=== PATIENT | male | born 1940 | race Caucasian/White ===

== ENCOUNTER 2017-09-24 08:05 | Day surgery (SDC) | payer MEDICARE, SELFPAY ==
[2017-09-23 14:43] VITALS: BMI 27.3
[2017-09-24] VITALS (9 sets, daily range): BP systolic 149–173; BP diastolic 69–82; PULSE 69–78; RESP 18–22; TEMP 36.8–37.3; O2SAT 92–98
== END 2017-09-24 11:10 | disposition home or self-care (01) ==
LOC: OR 08:13
PROVIDERS: Family Provider Family Medicine; PCP Family Medicine; Visit Provider Ophthalmology
DX: H21.562 Pupillary abnormality, left eye (principal); H26.9 Unspecified cataract
CPT/HCPCS: 66982; V2632

== ENCOUNTER 2018-03-04 12:48 | Observation (INO) ==
[2018-03-04 13:08] LABS: Basophils # 0.1 K/mm3 (0-0.2); Basophils % 0.8 % (0.1-2.0); Eosinophils # 0.3 K/mm3 (0.0-0.4); Eosinophils % 3.6 % (0.1-12.0); Hematocrit 37.6 % (42.0-52.0); Hemoglobin 10.7 g/dL (14.1-18.0); Lymphocytes # 1.5 K/mm3 (0.7-4.5); Lymphocytes % 17.1 K/mm3 (10-50); Mean Corpuscular HGB Conc 28.5 g/dL (31.8-35.4); Mean Corpuscular Hemoglobin 26.7 pg (27.0-31.2); Mean Corpuscular Volume 93.4 fl (80-94); Mean Platelet Volume 7.3 fl (7.4-10.4); Monocytes # 0.8 K/mm3 (0.1-1.0); Monocytes % 8.7 % (1.7-9.3); Neutrophils # 6.2 K/mm3 (1.8-7.8); Neutrophils % 69.8 % (37.0-80.0); Platelet Count 294 K/mm3 (142-424); Red Blood Count 4.03 M/mm3 (4.60-6.20); Red Cell Distribution Width 14.8 % (11.5-17.5); White Blood Count 8.9 K/mm3 (4.8-10.8)
[2018-03-04 13:09] LABS: ABG HCO3 32.1 mmhg (22.0-26.0); ABG Oxygen Saturation 99 % (90-100); ABG PH 7.26 mmol/L (7.35-7.45); ABG TCO2 34.3 mmhg (23-27)
[2018-03-04 13:10] LABS: Allen's Test Acceptable; Oxygen NRB %
--- NOTE | 2018-03-04 13:10 | Emergency Department Note ---
ED Disposition Clinical Impression: Hypoxemia Disposition: Admitted as Observation Condition on Discharge: Good - Critical Care Critical Care Time: No Attestation: On 03/04/18, the high probability of a clinically significant, sudden or life threatening deterioration of the following system(s) required my full and direct attention, intervention and personal management. The time I documented below is in addition to time spent performing reported procedures but includes the following listed in this critical care notation. Medical Decision Making - Medical Records Medical records reviewed: Yes: I reviewed the patient's medical records. - Jay Inquiry Pt receiving controlled substance: No Jay was queried for this patient: No Vital Signs: 03/04/18 12:48 03/04/18 12:50 03/04/18 13:15 Temperature 98.9 F Temperature Source Temporal Artery Scan Pulse Rate Pulse Rate [Right Brachial] 83 Respiratory Rate 22 Blood Pressure Blood Pressure [Right Arm] 160/80 Blood Pressure Mean [Right Arm] 106 Blood Pressure Source Blood Pressure Source [Right Arm] Automatic Cuff Blood Pressure Position Blood Pressure Position [Right Arm] Sitting 02 Sat by Pulse Oximetry 66 L 99 97 Oxygen Delivery Method Room Air Non-Rebreather Nasal Cannula Oxygen Flow Rate (LPM) 15 3 03/04/18 13:18 03/04/18 14:30 03/04/18 16:27 Temperature 98.9 F Temperature Source Oral Pulse Rate 80 Pulse Rate [Right Brachial] 70 80 Respiratory Rate 22 20 20 Blood Pressure 177/77 Blood Pressure [Right Arm] 155/60 151/70 Blood Pressure Mean [Right Arm] 91 97 Blood Pressure Source Automatic Cuff Blood Pressure Source [Right Arm] Automatic Cuff Automatic Cuff Blood Pressure Position Sitting Blood Pressure Position [Right Arm] Sitting Sitting 02 Sat by Pulse Oximetry 94 L 95 Oxygen Delivery Method Nasal Cannula Nasal Cannula Nasal Cannula Oxygen Flow Rate (LPM) 3 3 - Lab Data Lab results reviewed: Yes: I reviewed the patient's lab results. Lab Results 03/04/18 12:45: POC Glucose 115 H 03/04/18 12:52: Specimen Source Left radial, O2 % Nrb, ABG pH 7.26 L, ABG pCO2 73.4 H, ABG pO2 212.0 H, ABG HCO3 32.1 H, ABG Total CO2 34.3 H, ABG O2 Saturation 99, ABG Base Excess 5.0 H, Gregory Test Acceptable 03/04/18 12:55: WBC 8.9, RBC 4.03 L, Hgb 10.7 L, Hct 37.6 L, MCV 93.4, MCH 26.7 L, MCHC 28.5 L, RDW 14.8, Plt Count 294, MPV 7.3 L, Neut % (Auto) 69.8, Lymph % (Auto) 17.1, [place] % (Auto) 8.7, Eos % (Auto) 3.6, Baso % (Auto) 0.8, Neut # ( Auto) 6.2, Lymph # (Auto) 1.5, [place] # (Auto) 0.8, Eos # (Auto) 0.3, Baso # (Auto ) 0.1 03/04/18 12:55: Sodium 141, Potassium 5.3 H, Chloride 103, Carbon Dioxide 33 H, Anion Gap 10.3, BUN 32 H, Creatinine 1.64 H, Estimated Creat Clear 54, Estimated GFR 41 L, Est GFR ( Amer) 49 L, Glucose 125 H, Calcium 8.7, Total Bilirubin 0.3, AST 17, ALT 22, Alkaline Phosphatase 125 H, Total Creatine Kinase 57, CK-MB (CK-2) 1.9, CK-MB (CK-2) Rel Index 3.3, Troponin I < 0.02, Total Protein 7.3, Albumin 3.0 L, Globulin 4.3 H, Albumin/Globulin Ratio 0.7 L 03/04/18 12:55: Lactic Acid 0.9 Result diagrams: 03/06/18 06:15 03/06/18 06:15 Orders (Tests/Meds): ED MEDICATIONS Discontinued Medications Generic Name Dose Route Start Last Admin Trade Name Cornelius PRN Reason Stop Dose Admin Albuterol/Ipratropium 3 ml 03/04/18 18:00 03/06/18 05:50 Duoneb 3ml Neb IH 04/03/18 17:59 3 ml Q6RT ESME Administration Amiodarone HCl 200 mg 03/05/18 09:00 03/05/18 09:04 Cordarone 200mg Tablet PO 04/04/18 08:59 200 mg DAILY ESME Administration Amlodipine Besylate 10 mg 03/05/18 09:00 03/06/18 08:28 Norvasc 10mg Tablet PO 04/04/18 08:59 10 mg DAILY ESME Administration Calcium Chloride 1 gm 03/04/18 13:50 03/04/18 14:12 Calcium Chloride 1gm/10ml Syringe IVP 03/04/18 13:51 1 gm ONCE ONE Administration Dextrose 50 ml 03/04/18 13:51 03/04/18 14:10 Dextrose 50% 50ml Syringe IVP 03/04/18 13:52 50 ml ONCE ONE Administration Ferrous Sulfate 325 mg 03/05/18 09:00 03/06/18 08:28 Ferrous Sulfate 325mg Tablet PO 04/04/18 08:59 325 mg DAILY ESME Administration Furosemide 40 mg 03/04/18 21:00 03/04/18 20:33 Lasix 40mg Tablet PO 04/03/18 20:59 40 mg BID ESME Administration Furosemide 40 mg 03/05/18 07:44 03/05/18 09:06 Lasix 40mg Tablet PO 04/03/18 20:59 40 mg BIDL ESME Administration Furosemide 40 mg 03/05/18 16:00 03/06/18 08:29 Lasix 40mg Tablet PO 04/04/18 15:59 40 mg BIDL ESME Administration Sodium Chloride 1,000 mls @ 100 mls/hr 03/04/18 16:49 03/06/18 01:06 Sod Chlor 0.9% 1000ml Bag IV 04/03/18 16:48 100 mls/hr .Q10H ESME Administration Levofloxacin/Dextrose 750 mg in 150 mls @ 100 mls/hr 03/04/18 17:30 03/04/18 17:59 Levofloxacin 750mg/150ml Premix IV 03/18/18 17:29 100 mls/hr Q24H ESME Administration Protocol Levofloxacin/Dextrose 750 mg in 150 mls @ 100 mls/hr 03/05/18 17:00 03/05/18 18:08 Levofloxacin 750mg/150ml Premix IV 03/19/18 16:59 100 mls/hr Q24H ESME Administration Protocol Insulin Human Regular 8 unit 03/04/18 13:51 03/04/18 14:10 Humulin R Insulin 100 Units/Ml 10ml Vial IVP 03/04/18 13:52 8 unit ONCE ONE Administration Iopamidol 70 ml 03/05/18 09:35 03/05/18 09:36 [id number]; 75ml Vial IV 03/05/18 09:36 70 ml ONCE ONE Administration Lisinopril 40 mg 03/05/18 09:00 03/05/18 09:07 Zestril 20mg Tab PO 04/04/18 08:59 40 mg DAILY ESME Administration Methylprednisolone Sodium Succinate 80 mg 03/04/18 17:30 03/05/18 05:31 Solu-Medrol 125mg/2ml Vial IV 04/03/18 17:29 80 mg Q6H ESME Administration Methylprednisolone Sodium Succinate 80 mg 03/05/18 13:00 03/06/18 06:43 Solu-Medrol 125mg/2ml Vial IV 04/04/18 12:59 80 mg Q6H ESME Administration Metoprolol Succinate 50 mg 03/05/18 09:00 03/05/18 09:40 Toprol Xl 50mg Tablet PO 04/04/18 08:59 50 mg DAILY ESME Administration Metoprolol Tartrate 50 mg 03/06/18 09:00 03/06/18 08:29 Lopressor 50mg Tablet PO 04/05/18 08:59 50 mg DAILY ESME Administration Mupirocin 1 gm 03/04/18 21:00 03/06/18 08:30 Bactroban 2% Ointment 22gm Tube TP 04/03/18 20:59 1 applicatio TID ESME Administration Non-Formulary Medication 40 mg 03/04/18 16:49 03/04/18 18:00 Lisinopril [Lisinopril 40mg Tablet] PO 04/03/18 16:48 Not Given DAILY EMSE Patient's Own 0.5 each 03/06/18 09:00 03/06/18 08:32 Medication * PO 04/05/18 08:59 0.5 each Amiodarone 200mg* DAILY ESME Administration Patient's Own 1 each 03/06/18 09:00 03/06/18 08:33 Medication *Xarelto PO 04/05/18 08:59 1 each 20mg* DAILY ESME Administration Patient's Own 1 each 03/06/18 09:00 03/06/18 08:32 Medication * PO 04/05/18 08:59 1 each Lisinopril 40mg* DAILY ESME Administration Pantoprazole Sodium 40 mg 03/05/18 21:00 03/05/18 21:23 Protonix 40mg Tablet PO 04/04/18 20:59 40 mg HS ESME Administration Rivaroxaban 20 mg 03/05/18 09:00 03/05/18 09:09 Xarelto 10mg Tablet PO 04/04/18 08:59 20 mg DAILY ESME Administration Sodium Chloride 10 ml 03/04/18 16:49 Saline Flush 10ml Syringe IV 04/03/18 16:48 NEEDED PRN Maintain IV Site Sodium Chloride 40 ml 03/05/18 09:35 03/05/18 09:36 Rad-Ns 50ml Vial IV 03/05/18 09:36 40 ml ONCE ONE Administration Sodium Chloride 10 ml 03/05/18 09:35 03/05/18 09:36 Rad-Saline Flush 10ml Syringe IV 03/05/18 09:36 10 ml ONCE ONE Administration Sodium Chloride 3 ml 03/05/18 19:50 Sodium Chloride 3% 15ml Neb IH 04/04/18 19:49 ONCE PRN INDUCE SPUTUM COLLECTION Sodium Polystyrene Sulfonate 15 gm 03/04/18 13:51 03/04/18 14:10 Kayexalate 15gm/60ml Bottle PO 03/04/18 13:52 15 gm ONCE ONE Administration - Radiology Data #1 Image(s): Chest Image Reviewed: Yes I reviewed the patient's radiology results, Yes I have reviewed radiologist's interpretation Preliminary Findings: Abnormal (possible infiltrate vs atelectasis at base per radiology (right)) - CT Data CT Scan: Head Time Received: 15:28 (poorly imaged abnormality R orbit; neg acute) ED CT Reviewed: Yes: I have reviewed the patient's CT results, I have viewed the radiologist's interpretation - ECG Data Tracing #1 ECG initial impression date: 03/04/18 ECG initial impression time: 12:55 (peaked T waves with K level pending; normal QTc but first degree AVB noted; most recent EKG was in 2013; hx Afib) Normal Sinus Rhythm: Yes Arrhythmias present: other Conduction abnormalities present: 1st degree AV block - Physician Consults Physician Consulted: Dr. Gould PCP Reason -: Admission - Reevaluation(s) Time: 13:14 (placed on NC due to abnormal ABG: retaining) Medical Decision Narrative: 1353: K 5.3 with peaked T waves noted on EKG; appropriate meds ordered. Patient alert, no SOB; CXR and CT pending Resp/SOB HPI - General Chief Complaint: Shortness of Breath/Dyspnea Stated Complaint: SOA, dropping things Time Seen by Provider: 03/04/18 13:07 Mode of Arrival: Wheelchair Source of Information: Patient, Spouse Limitations: No Limitations Description of Symptoms (Recalled from ER Triage Doc. by RN): Per pt report pt c /o SOA x1 month. Pt reports has been weak, states his hands have become shaky and has recently been dropping things frequently. - History of Present Illness Progressively SOB, chronic edema, out of his diuretic and hasn't refilled it. Arrives hypoxic, states SOB for several months, worse today; has chronic anemia, pt of Dr. Gould PCP and Dr. Carreno, cardiology, for Afib. No new changes in medications otherwise; takes Amiodarone. Is on Xarelto as well. No focal neurological sx but reports "shaky" since awakening this AM w/o headache. Diffusely weak, states 'dropping things' this AM. No bianca chest pain. MD Complaint: shortness of breath Onset (ago): month(s) Severity: moderate Consistency/Duration: constant Relieving factors: oxygen Exacerbating factors: exertion, movement Associated symptoms: denies other symptoms Treatment prior to arrival: none - Related Data Home Medications Medication Instructions Recorded Confirmed Amlodipine Besylate [Amlodipine 10 mg PO DAILY 09/23/17 03/04/18 10mg Tab] Lisinopril [Lisinopril 40mg Tablet] 40 mg PO DAILY 09/23/17 03/04/18 Pantoprazole Sodium [Pantoprazole 40 mg PO DAILY 09/23/17 03/04/18 20mg Tab] Rivaroxaban [Xarelto 10mg tablet] 20 mg PO DAILY 09/23/17 03/04/18 Ferrous Sulfate [Iron] 325 mg PO DAILY 03/04/18 03/04/18 Furosemide [Furosemide 40MG tAB] 40 mg PO BID 03/04/18 03/04/18 Amiodarone HCl [Amiodarone 100mg 100 mg PO DAILY 03/05/18 03/05/18 Tab] Metoprolol Tartrate 50 mg PO DAILY 03/05/18 03/05/18 Previous Rx's Medication Instructions Recorded levoFLOXacin [Levaquin 750mg 750 mg PO DAILY #5 tab 03/06/18 tablet] predniSONE [Prednisone 20mg 20 mg PO BID #10 tab 03/06/18 Tab] Allergies Allergy/AdvReac Type Severity Reaction Status Date / Time codeine [CODEINE] Allergy Unknown Verified 09/24/17 08:47 - Well's Criteria PE Score Clinical signs/symptoms of DVT: No PE is #1 diagnosis or equally likely: No Heart rate is > 100: No Immobile at least 3 days, or surgery in past 4 wks: No Previously, obj. diagnosed PE or DVT: No Hemoptysis: No Malignancy w/Rx within 6mo, or palliative: No PE Score: 0 [facility] History I have reviewed the patient's past medical history: Yes Medical History: Reports:: Hypertension, Palpitations Denies:: Diabetes Mellitus Type 1, Diabetes Mellitus Type 2, Internal Pacemaker, Lung Disease, Seizures Other Surgeries: No: Pacemaker - Social History Smoking Status: Former smoker Alcohol Intake: never - Psychiatric History Expresses thoughts of harming self/others: None Suicide Plan Description: No Plan ROS Obtained: Yes All systems reviewed & no additional complaints Physical Exam - General General appearance: alert, in no apparent distress - Head Head exam: atraumatic, normocephalic, normal inspection - Eye Eye exam: Present: normal appearance, PERRL, EOMI - ENT ENT exam: Present: normal exam, normal oropharynx, mucous membranes moist, TM's normal bilaterally, normal external ear exam - Neck Neck exam: Present: normal inspection, full ROM, trachea midline. Absent: meningismus, lymphadenopathy - Chest Chest inspection: Present: normal inspection, symmetric chest wall rise. Absent : tenderness - Respiratory Respiratory exam: Present: normal lung sounds bilaterally. Absent: respiratory distress, accessory muscle use (hypoxic) - Cardiovascular Cardiovascular exam: Present: regular rate, normal rhythm. Absent: JVD - Abdominal Exam Abdominal exam: Present: soft, normal bowel sounds. Absent: distention, tenderness, guarding - Extremities Exam Extremities exam: Present: normal inspection, full ROM, normal capillary refill. Absent: calf tenderness - Back Exam Back exam: Present: normal inspection. Absent: tenderness - Neurological Exam Neurological exam: Present: alert, oriented X3 - Psychiatric Psychiatric exam: Present: normal affect, normal mood - Skin Skin exam: Present: warm, dry, intact, normal color - Lymphatic Lymphatic Findings: no adenopathy
[2018-03-04 13:11] LABS: ABG PCO2 73.4 mmhg (35.0-45.0)
[2018-03-04 13:42] LABS: Alanine Aminotransferase 22 U/L (12-78); Albumin/Globulin Ratio 0.7 (1.1-1.8); Alkaline Phosphatase 125 U/L (46-116); Anion Gap 10.3 mEq/L (5-15); Aspartate Amino Transferase 17 U/L (15-37); Bilirubin,Total 0.3 mg/dL (0.2-1.0); Blood Urea Nitrogen 32 mg/dL (7-18); Calcium 8.7 mg/dL (8.5-10.1); Carbon Dioxide 33 mmol/L (21.0-32.0); Chloride 103 mmol/L (98-107); Creatine Kinase 57 U/L (39-308); Globulin 4.3 gm/dl (1.3-3.2); Glucose 125 mg/dL (74-106); Potassium 5.3 mmoL/L (3.5-5.1); Sodium 141 mmol/L (136-145); Total Protein,Serum 7.3 gm/dL (6.4-8.2)
--- NOTE | 2018-03-04 16:27 | Pharmacy Consult Notes ---
[facility] Pharmacy VTE Monitoring - Patient Demographics Admission date: 03/04/18 Report Date: 03/04/18 Time: 16:27 Allergies/Adverse Reactions: Patient Allergies codeine [CODEINE] Allergy (Unknown, Verified 09/24/17 08:47) Height: 1.93 m Weight: 104.326 kg - VTE Risk Labs: VTE Related Lab Results Hgb 10.7 g/dL (14.1-18.0) L 03/04/18 12:55 Hct 37.6 % (42.0-52.0) L 03/04/18 12:55 Plt Count 294 K/mm3 (142-424) 03/04/18 12:55 BUN 32 mg/dL (7-18) H 03/04/18 12:55 Creatinine 1.64 mg/dL (0.70-1.30) H 03/04/18 12:55 Estimated Creat Clear 54 mL/min (0-300) 03/04/18 12:55 Clinical Trial Participant: No - Prophylaxis VTE Prophylaxis Ordered?: Yes Types of VTE Prophylaxis: TEDS Knee High
--- NOTE | 2018-03-04 19:36 | Cardiology Report ---
PROCEDURE: 2-D M-mode and color Doppler study INDICATIONS FOR THE TEST: Chest pain COPD Heart Murmur Tobacco Smokingex Palpitations Fatigue+ Syncope Edema+ Hypertension+Diabetes Mellitus Rheumatic Fever SOB+FLORES+Obesity+Hyperlipidemia Family History HD+ Additional History hypoxia PATIENT INFORMATION HEIGHT: 76 WEIGHT: 235 GENDER: Male B/P:160/80 2-D/M-MODE INTERPRETATION: 2-D MEASUREMENTS OBSERVED VALUES IN CMS Right Ventricular Dimension (RVDd) 2.6 Interventricular Septum (Thickness)(IVsd) 1.5 Left Ventricular Internal Dimensions(LVIDd) 5.3 Left Ventricular Posterior Wall (Thickness)(LVPWd) 1.4 Aortic Root 2.7 Aortic Cusp Separation 1.5 Left Atrial Dimensions (LAD) 4.9 2D 1. Left atrium is mildly enlarged, left ventricle is normal size, mild concentric left ventricular hypertrophy, visually estimated ejection fraction 55-60% with no obvious regional wall motion abnormality. 2. The right atrium ventricular mildly enlarged with normal contractility. 3. The aortic valve is thickened and calcified with restriction the leaflet mobility. 4. The mitral and tricuspid valve leaflets are minimally thickened and calcified. 5. The pulmonic valve is poorly visualized. 6. No significant pericardial effusion noted. DOPPLER INTERROGATION: 1. The maximum aortic out flow velocity recorded study 3.1 m/s, resulting in a mean gradient across valve of 21 mmHg represents mild aortic stenosis, there is no aortic insufficiency. 2. The mitral inflow velocity within normal range, there is no mitral stenosis, there is mild mitral regurgitation, grade 1 diastolic dysfunction seen with tissue Doppler evidence of raised left atrial pressure. 3. There is mild tricuspid regurgitation noted, calculated right ventricular systolic pressure is 59 mmHg consistent with moderate pulmonary hypertension. CONCLUSION: 1. Biatrial enlargement, normal left ventricular size, mild concentric left ventricular hypertrophy, visually estimated ejection fraction 55-60% with no obvious regional wall motion abnormality, grade 1 diastolic dysfunction seen with tissue Doppler evidence of raised left atrial pressure. 2. Mildly enlarged right ventricle with normal contractility. 3. Thickened and calcified aortic valve with mean gradient across valve of 21 mmHg consistent with mild aortic stenosis, there is no aortic insufficiency. 4. Mild mitral and tricuspid regurgitation, calculated right ventricular systolic pressure is 59 mmHg consistent with moderate pulmonary hypertension. 5. No significant pericardial effusion noted.
--- NOTE | 2018-03-04 19:56 | History & Physical Report ---
*Admission Date: 03/04/18 *Chief complaint: weakness, shortness of breath, lethargy *History of present illness: 77 year old male who has been undergoing outpatient work-up for daytime somnolence and fatigue presented to the ED for evaluation of ongoing symptoms. Patient states "I can't hold onto things anymore. I keep dropping everything." He reports "shaking" sensation of upper extremities. Family reports increased lethargy, weakness and shortness of breath the last few days. No shortness of breath. Denies fevers. No ENT symptoms. No nausea, vomiting or diarrhea. He does have a huge right inguinal hernia. In the ED, he was found to be hypoxic with RLL infiltrate. Patient was admitted for further IV antibiotics and further evaluation. [facility] History I have reviewed the patient's past medical history: Yes Medical History: Reports:: Atrial Fibrillation, Congestive Heart Failure, Hypertension, Palpitations Denies:: Cancer, Diabetes Mellitus Type 1, Diabetes Mellitus Type 2, Internal Pacemaker, Lung Disease, MRSA, Seizures Other Medical History: Reports: Anemia Laterality Cases: Left: Total Hip Replacement Other Surgeries: Yes: Appendectomy. No: Pacemaker Amputation: No Fractures: Yes - *Social History Educational Level: Attended High School Smoking Status: Former smoker Alcohol Intake: never Occupational Status: employed Housing: house Household Members: spouse - Psychiatric History Expresses thoughts of harming self/others: None Suicide Plan Description: No Plan *Family Hx:: Unable to obtain Review of Systems - Review of Systems Review of systems:: pertinent systems reviewed and negative unless documented below - Constitutional Reports weakness - *Cardiovascular Reports leg swelling - *Respiratory Reports shortness of breath - *Neurologic Reports tremor(s) Meds Home Medications Medication Instructions Recorded Confirmed Type Amiodarone HCl [Amiodarone 200mg 200 mg PO DAILY 09/23/17 03/04/18 History Tab] Amlodipine Besylate [Amlodipine 10 mg PO DAILY 09/23/17 03/04/18 History 10mg Tab] Lisinopril [Lisinopril 40mg Tablet] 40 mg PO DAILY 09/23/17 03/04/18 History Metoprolol Succinate 50 mg PO DAILY 09/23/17 03/04/18 History Pantoprazole Sodium [Pantoprazole 40 mg PO DAILY 09/23/17 03/04/18 History 20mg Tab] Rivaroxaban [Xarelto 10mg tablet] 20 mg PO DAILY 09/23/17 03/04/18 History Ferrous Sulfate [Iron] 325 mg PO DAILY 03/04/18 03/04/18 History Furosemide [Furosemide 40MG tAB] 40 mg PO BID 03/04/18 03/04/18 History Allergies Allergy/AdvReac Type Severity Reaction Status Date / Time codeine [CODEINE] Allergy Unknown Verified 09/24/17 08:47 Exam Vital signs and Labs for Last 24 Hours: Temp Pulse Resp BP Pulse Ox 98.3 F 88 22 168/85 93 L 03/04/18 16:39 03/04/18 18:32 03/04/18 16:39 03/04/18 16:39 03/04/18 18:32 Laboratory Results - last 24 hr 03/04/18 12:52: Specimen Source Left radial, O2 % Nrb, ABG pH 7.26 L, ABG pCO2 73.4 H, ABG pO2 212.0 H, ABG HCO3 32.1 H, ABG Total CO2 34.3 H, ABG O2 Saturation 99, ABG Base Excess 5.0 H, Gregory Test Acceptable 03/04/18 12:55: WBC 8.9, RBC 4.03 L, Hgb 10.7 L, Hct 37.6 L, MCV 93.4, MCH 26.7 L, MCHC 28.5 L, RDW 14.8, Plt Count 294, MPV 7.3 L, Neut % (Auto) 69.8, Lymph % (Auto) 17.1, [place] % (Auto) 8.7, Eos % (Auto) 3.6, Baso % (Auto) 0.8, Neut # ( Auto) 6.2, Lymph # (Auto) 1.5, [place] # (Auto) 0.8, Eos # (Auto) 0.3, Baso # (Auto ) 0.1 03/04/18 12:55: Sodium 141, Potassium 5.3 H, Chloride 103, Carbon Dioxide 33 H, Anion Gap 10.3, BUN 32 H, Creatinine 1.64 H, Estimated Creat Clear 54, Estimated GFR 41 L, Est GFR ( Amer) 49 L, Glucose 125 H, Calcium 8.7, Total Bilirubin 0.3, AST 17, ALT 22, Alkaline Phosphatase 125 H, Total Creatine Kinase 57, CK-MB (CK-2) 1.9, CK-MB (CK-2) Rel Index 3.3, Troponin I < 0.02, Total Protein 7.3, Albumin 3.0 L, Globulin 4.3 H, Albumin/Globulin Ratio 0.7 L 03/04/18 12:55: Lactic Acid 0.9 03/04/18 17:30: Lactic Acid 0.7 I & O for Last 24 hours: Intake & Output 03/02/18 03/03/18 03/04/18 03/05/18 11:59 11:59 11:59 11:59 Intake Total 240 / 240 Balance 240 / 240 Weight 235 lb 9 oz Narrative: ALert and oriented x3 with some confusion. Rate and rhythm regular. + murmur. 2+ BLE edema with chronic erythematous changes. Lung sounds with scattered rhonchi on right, diminished bilateral bases. Abdomen soft and nontender. Normosctive bowel sounds. Large right sided inguinal hernia approx the size of a football. Non-tender H&P: Result - Labs Labs: Short CBC 03/04/18 Range/Units 12:55 WBC 8.9 (4.8-10.8) K/mm3 Hgb 10.7 L (14.1-18.0) g/dL Hct 37.6 L (42.0-52.0) % Plt Count 294 (142-424) K/mm3 BMP 03/04/18 12:55 Sodium 141 Potassium 5.3 H Chloride 103 Carbon Dioxide 33 H BUN 32 H Creatinine 1.64 H Glucose 125 H Calcium 8.7 Cardiac Enzymes 03/04/18 Range/Units 12:55 Total Creatine Kinase 57 (39-308) U/L CK-MB (CK-2) 1.9 (0.0-3.6) ng/ml Troponin I < 0.02 (0.00-0.06) ng/ml Liver Function 03/04/18 Range/Units 12:55 Total Bilirubin 0.3 (0.2-1.0) mg/dL AST 17 (15-37) U/L ALT 22 (12-78) U/L Alkaline Phosphatase 125 H (46-116) U/L Albumin 3.0 L (3.4-5.0) gm/dL Assessment and Plan (1) Hypoxemia Current visit: Yes Status: Acute Category: Medical Code(s): R09.02 - Hypoxemia (2) Lymphedema of both lower extremities Current visit: Yes Status: Acute Category: Medical Code(s): I89.0 - Lymphedema, not elsewhere classified (3) Right lower lobe pneumonia Current visit: Yes Status: Acute Category: Medical Code(s): J18.1 - Lobar pneumonia, unspecified organism - Assessment and plan all Dx Assessment and Plan for all problems:: Start Levaquin, solu-medrol and duonebs for presumed pneumonia. Will obtain VQ Scan tomorrow to evaluate for PE; although this is unlikely as he is on xarelto. His ongoing issues with daytime somnolence may be related to hypercarbia as he has a previous h/o tobacco. Mupirocin to Dari. PT consult for lymphedema wrapping.
[2018-03-05 07:19] LABS: Basophils % 0.1 % (0.1-2.0); Eosinophils % 0.4 % (0.1-12.0); Hematocrit 36.8 % (42.0-52.0); Hemoglobin 10.3 g/dL (14.1-18.0); Lymphocytes # 0.7 K/mm3 (0.7-4.5); Lymphocytes % 9.1 K/mm3 (10-50); Mean Corpuscular HGB Conc 27.9 g/dL (31.8-35.4); Mean Corpuscular Hemoglobin 26.1 pg (27.0-31.2); Mean Corpuscular Volume 93.3 fl (80-94); Monocytes # 0.3 K/mm3 (0.1-1.0); Monocytes % 3.4 % (1.7-9.3); Neutrophils # 6.3 K/mm3 (1.8-7.8); Neutrophils % 86.9 % (37.0-80.0); Platelet Count 256 K/mm3 (142-424); Red Blood Count 3.95 M/mm3 (4.60-6.20); Red Cell Distribution Width 14.6 % (11.5-17.5); White Blood Count 7.2 K/mm3 (4.8-10.8)
[2018-03-05 07:21] LABS: Anion Gap 8.7 mEq/L (5-15); Calcium 8.3 mg/dL (8.5-10.1); Potassium 4.7 mmoL/L (3.5-5.1)
--- NOTE | 2018-03-05 08:03 | Progress Note ---
Internal Medicine - PN: Subj *Date: 03/05/18 *Time: 08:01 Interval history: Patient overall feels better, more energy, continues to wonder about his shaking sensations in his hands. Exam Vital signs and Labs for Last 24 Hours: Temp Pulse Resp BP Pulse Ox 98.8 F 94 H 20 144/66 92 L 03/05/18 07:47 03/05/18 07:47 03/05/18 07:47 03/05/18 07:47 03/05/18 07:47 Laboratory Results - last 24 hr 03/04/18 12:52: Specimen Source Left radial, O2 % Nrb, ABG pH 7.26 L, ABG pCO2 73.4 H, ABG pO2 212.0 H, ABG HCO3 32.1 H, ABG Total CO2 34.3 H, ABG O2 Saturation 99, ABG Base Excess 5.0 H, Gregory Test Acceptable 03/04/18 12:55: WBC 8.9, RBC 4.03 L, Hgb 10.7 L, Hct 37.6 L, MCV 93.4, MCH 26.7 L, MCHC 28.5 L, RDW 14.8, Plt Count 294, MPV 7.3 L, Neut % (Auto) 69.8, Lymph % (Auto) 17.1, [place] % (Auto) 8.7, Eos % (Auto) 3.6, Baso % (Auto) 0.8, Neut # ( Auto) 6.2, Lymph # (Auto) 1.5, [place] # (Auto) 0.8, Eos # (Auto) 0.3, Baso # (Auto ) 0.1 03/04/18 12:55: Sodium 141, Potassium 5.3 H, Chloride 103, Carbon Dioxide 33 H, Anion Gap 10.3, BUN 32 H, Creatinine 1.64 H, Estimated Creat Clear 54, Estimated GFR 41 L, Est GFR ( Amer) 49 L, Glucose 125 H, Calcium 8.7, Total Bilirubin 0.3, AST 17, ALT 22, Alkaline Phosphatase 125 H, Total Creatine Kinase 57, CK-MB (CK-2) 1.9, CK-MB (CK-2) Rel Index 3.3, Troponin I < 0.02, Total Protein 7.3, Albumin 3.0 L, Globulin 4.3 H, Albumin/Globulin Ratio 0.7 L 03/04/18 12:55: Lactic Acid 0.9 03/04/18 17:30: Lactic Acid 0.7 03/05/18 06:32: WBC 7.2, RBC 3.95 L, Hgb 10.3 L, Hct 36.8 L, MCV 93.3, MCH 26.1 L, MCHC 27.9 L, RDW 14.6, Plt Count 256, MPV 7.0 L, Neut % (Auto) 86.9 H, Lymph % (Auto) 9.1 L, [place] % (Auto) 3.4, Eos % (Auto) 0.4, Baso % (Auto) 0.1, Neut # ( Auto) 6.3, Lymph # (Auto) 0.7, [place] # (Auto) 0.3, Eos # (Auto) 0.0, Baso # (Auto ) 0.0 03/05/18 06:32: Sodium 139, Potassium 4.7, Chloride 102, Carbon Dioxide 33 H, Anion Gap 8.7, BUN 22 H D, Creatinine 1.28 D, Estimated Creat Clear 69, Estimated GFR 54 L, Est GFR ( Amer) 66 D, Glucose 188 H D, Calcium 8.3 L I & O for Last 24 hours: Intake & Output 03/02/18 03/03/18 03/04/18 03/05/18 11:59 11:59 11:59 11:59 Intake Total 480 / 480 Output Total 1700 / 1700 Balance -1220 / -1220 Weight 230 lb 7 oz Narrative: Oxygen levels have improved on 2 L of nasal cannula. Lungs have good air movement. Crackles in both lower lung archer, heart rate regular. Abdomen soft. He is able to move his extremities. His lymphedema is much improved in his lower extremities and the redness of the cellulitic area on the left anterior leg is much improved. Assessment and Plan (1) Hypoxemia Current visit: Yes Status: Acute Category: Medical Code(s): R09.02 - Hypoxemia (2) Right lower lobe pneumonia Current visit: Yes Status: Acute Category: Medical Code(s): J18.1 - Lobar pneumonia, unspecified organism (3) Ataxia Current visit: Yes Status: Acute Category: Medical Code(s): R27.0 - Ataxia , unspecified (4) Lymphedema of both lower extremities Current visit: Yes Status: Acute Category: Medical Code(s): I89.0 - Lymphedema, not elsewhere classified - Assessment and plan all Dx Assessment and Plan for all problems:: Signs seem to be improving. Continue current therapy. Check CT scan for PE protocol given improvement and coming. PT evaluation for his overall functional decline issues. Echocardiogram was surprisingly normal with left atrial enlargement and preserved LV function. Continue antibiotics for pneumonia, await culture results from blood and sputum.
[2018-03-05 09:35] LABS: Lymphocytes % 8 % (10-50); Monocytes % 2 % (2-9); Neutrophils % 90 % (42-76); Total Cells Counted 100
[2018-03-05 09:36] LABS: Hypochromasia 1+; Stomatocytes 1+
[2018-03-06 06:57] LABS: Basophils % 0.1 % (0.1-2.0); Eosinophils % 0.1 % (0.1-12.0); Hemoglobin 10.1 g/dL (14.1-18.0); Lymphocytes # 0.4 K/mm3 (0.7-4.5); Lymphocytes % 2.8 K/mm3 (10-50); Mean Corpuscular HGB Conc 28.8 g/dL (31.8-35.4); Mean Corpuscular Hemoglobin 26.4 pg (27.0-31.2); Mean Corpuscular Volume 91.7 fl (80-94); Mean Platelet Volume 7.2 fl (7.4-10.4); Monocytes # 0.5 K/mm3 (0.1-1.0); Monocytes % 3.4 % (1.7-9.3); Neutrophils # 13.1 K/mm3 (1.8-7.8); Neutrophils % 93.6 % (37.0-80.0); Platelet Count 268 K/mm3 (142-424); Red Blood Count 3.81 M/mm3 (4.60-6.20); Red Cell Distribution Width 15.1 % (11.5-17.5)
[2018-03-06 07:13] LABS: Albumin Level 2.6 gm/dL (3.4-5.0); Albumin/Globulin Ratio 0.7 (1.1-1.8); Anion Gap 6.9 mEq/L (5-15); Bilirubin,Total 0.3 mg/dL (0.2-1.0); Calcium 7.6 mg/dL (8.5-10.1); Globulin 3.9 gm/dl (1.3-3.2); Potassium 3.9 mmoL/L (3.5-5.1); Total Protein,Serum 6.5 gm/dL (6.4-8.2)
[2018-03-06 07:54] VITALS: BP 151/57
[2018-03-06 08:31] LABS: Lymphocytes % 3 % (10-50); Monocytes % 2 % (2-9); Neutrophils % 95 % (42-76); Total Cells Counted 100
[2018-03-06 08:32] LABS: Hypochromasia 2+
--- NOTE | 2018-03-06 08:51 | Discharge Summary ---
General - General Admission date:: 03/04/18 Discharge date: 03/06/18 HPI HPI: 77 year old male who has been undergoing outpatient work-up for daytime somnolence and fatigue presented to the ED for evaluation of ongoing symptoms. Patient states "I can't hold onto things anymore. I keep dropping everything." He reports "shaking" sensation of upper extremities. Family reports increased lethargy, weakness and shortness of breath the last few days. No shortness of breath. Denies fevers. No ENT symptoms. No nausea, vomiting or diarrhea. He does have a huge right inguinal hernia. In the ED, he was found to be hypoxic with RLL infiltrate. Patient was admitted for further IV antibiotics and further evaluation. Hospital Course Hospital Course: Patient was admitted to acute care. He was given IV antibiotics for pneumonia. Kidney function improved with IVF infusions. Echo was obtained which showed some mod pulm HTN with normal EF. CTA chest confirmed pneumonia, but was negative for PE. Mental status and lethargy have improved. Potassium normalized with treatment and has been stable on lisinopril. Physical therapy was consulted and he was able to ambulate fairly well with a walker. He is eating 100% of most meals. Shortness of breath and LE edema have improved. Oxygen saturations have improved; however he continues to be mildly hypoxic without oxygen, 88% on RA this morning. WBC count is noted at 14 this morning which is up from yesterday. I believe this is related to the solu-medrol. Discharge home with home health for PT on levaquin, prednisone and oxygen at 2L/ NC. See medication reconciliation for complete list. CBC and CMP on Saturday. FU with Dr. Gould in one week. Objective Vital signs: Temp Pulse Resp BP Pulse Ox 98.2 F 91 H 20 151/57 95 03/06/18 07:54 03/06/18 07:54 03/06/18 07:54 03/06/18 07:54 03/06/18 07:54 Narrative: Alert and oriented x3. Rate and rhythm regular. + murmur. Lung sounds diminished with fine crackles in bases. Abdomen soft and nontender. Large right sided inguinal hernia. Lymphedema significantly improved. Results Labs on day of discharge: Labs from last 24 hours 03/06/18 03/06/18 03/05/18 06:15 06:15 06:32 WBC 14.0 H D RBC 3.81 L Hgb 10.1 L Hct 35.0 L MCV 91.7 MCH 26.4 L MCHC 28.8 L RDW 15.1 Plt Count 268 MPV 7.2 L Neut % (Auto) 93.6 H Lymph % (Auto) 2.8 L [place] % (Auto) 3.4 Eos % (Auto) 0.1 Baso % (Auto) 0.1 Neut # (Auto) 13.1 H Lymph # (Auto) 0.4 L [place] # (Auto) 0.5 Eos # (Auto) 0.0 Baso # (Auto) 0.0 Total Counted 100 100 Neutrophils % (Manual) 95 H 90 H Lymphocytes % (Manual) 3 L 8 L Monocytes % (Manual) 2 2 Platelet Estimate Normal Normal RBC Morphology Not Reportable Hypochromasia 2+ 1+ Stomatocytes 1+ Sodium 137 Potassium 3.9 Chloride 100 Carbon Dioxide 34 H Anion Gap 6.9 BUN 21 H Creatinine 1.28 Estimated Creat Clear 70 Estimated GFR 54 L Est GFR ( Amer) 66 Glucose 204 H POC Glucose Calcium 7.6 L Total Bilirubin 0.3 AST 17 ALT 17 Alkaline Phosphatase 102 Total Protein 6.5 Albumin 2.6 L Globulin 3.9 H Albumin/Globulin Ratio 0.7 L 03/04/18 12:45 WBC RBC Hgb Hct MCV MCH MCHC RDW Plt Count MPV Neut % (Auto) Lymph % (Auto) [place] % (Auto) Eos % (Auto) Baso % (Auto) Neut # (Auto) Lymph # (Auto) [place] # (Auto) Eos # (Auto) Baso # (Auto) Total Counted Neutrophils % (Manual) Lymphocytes % (Manual) Monocytes % (Manual) Platelet Estimate RBC Morphology Hypochromasia Stomatocytes Sodium Potassium Chloride Carbon Dioxide Anion Gap BUN Creatinine Estimated Creat Clear Estimated GFR Est GFR ( Amer) Glucose POC Glucose 115 H Calcium Total Bilirubin AST ALT Alkaline Phosphatase Total Protein Albumin Globulin Albumin/Globulin Ratio Preliminary micro results at discharge 03/05/18 22:24 Sputum Culture - Preliminary Sputum - Expectorated Sputum DS: Diagnosis - Discharge Diagnosis (1) Hypoxemia Status: Acute (2) Lymphedema of both lower extremities Status: Acute (3) Right lower lobe pneumonia Status: Acute Discharge Plan - Patient Discharge Instructions ACTIVITY: Continue current activity DIET: continue same diet - Follow up Plan Follow up with: Dio Gould MD [Primary Care Provider] - 1 week Disposition: Home Health Service Home Medications: Home Medications Medication Instructions Recorded Confirmed Type Amlodipine Besylate [Amlodipine 10 mg PO DAILY 09/23/17 03/04/18 History 10mg Tab] Lisinopril [Lisinopril 40mg Tablet] 40 mg PO DAILY 09/23/17 03/04/18 History Pantoprazole Sodium [Pantoprazole 40 mg PO DAILY 09/23/17 03/04/18 History 20mg Tab] Rivaroxaban [Xarelto 10mg tablet] 20 mg PO DAILY 09/23/17 03/04/18 History Ferrous Sulfate [Iron] 325 mg PO DAILY 03/04/18 03/04/18 History Furosemide [Furosemide 40MG tAB] 40 mg PO BID 03/04/18 03/04/18 History Amiodarone HCl [Amiodarone 100mg 100 mg PO DAILY 03/05/18 03/05/18 History Tab] Metoprolol Tartrate 50 mg PO DAILY 03/05/18 03/05/18 History Prescriptions/Medication Reconciliation: New levoFLOXacin [Levaquin 750mg tablet] 750 mg PO DAILY #5 tab predniSONE [Prednisone 20mg Tab] 20 mg PO BID #10 tab Continue Lisinopril [Lisinopril 40mg Tablet] 40 mg PO DAILY Pantoprazole Sodium [Pantoprazole 20mg Tab] 40 mg PO DAILY Rivaroxaban [Xarelto 10mg tablet] 20 mg PO DAILY Furosemide [Furosemide 40MG tAB] 40 mg PO BID Metoprolol Tartrate 50 mg PO DAILY Amlodipine Besylate [Amlodipine 10mg Tab] 10 mg PO DAILY Ferrous Sulfate [Iron] 325 mg PO DAILY Amiodarone HCl [Amiodarone 100mg Tab] 100 mg PO DAILY Other Amb Orders: Complete Blood Count Auto Diff Time Frame: 03/10/18, Facility: [facility], Location: Laboratory Comprehensive Metabolic Panel Time Frame: 03/10/18, Location: None Selected
== END 2018-03-06 10:45 | disposition home health service (06) ==
LOC: ER 12:48 → 2ND 12:48
PROVIDERS: ADMIT Internal Medicine Adolescent Medicine; ATTEND Internal Medicine Adolescent Medicine

== ENCOUNTER → 2018-04-10 13:51 | Outpatient (CLI) | payer MEDICARE, SELFPAY ==
--- NOTE | 2018-04-10 13:56 | XR_ITS ---
XR chest 2V HISTORY: ITS.REASON: HYPOXIA Patient Hospital one month ago with pneumonia. Dyspnea persist ORDERING PHYSICIAN: Dio Gould MD PATIENT AGE: 77 years Technique: PA and lateral chest. COMPARISON: CT chest March 05, 2014 & PA chest same date FINDINGS: Bibasilar atelectasis and airspace disease persist similar to the March 05, 2018. If anything there may be slight additional linear atelectasis at the left lower lobe on today's study Upper lung archer appear clear. Cardiomegaly with left ventricular configuration. May be some mild vascular engorgement and mild prominence of pulmonary vascularity but no pulmonary edema or overt CHF. No pleural effusions. Old compression fracture mid T-spine unchanged recent chest CT IMPRESSION------ Persistent bibasilar airspace disease which likely minimal reflecting atelectasis and scarring at the bases. But difficult to exclude residual infiltrate. Today's plain film the chest appears similar to the 03/05/2018 PCXR. Slight improved aeration but still persistent bibasilar airspace disease. Consider follow-up CT of the improvement Cardio megaly. Mild vascular engorgement
== END ==
PROVIDERS: PCP Family Medicine; Visit Provider Family Medicine
DX: R09.02 Hypoxemia (principal)
CPT/HCPCS: 71046

== ENCOUNTER → 2019-07-21 11:14 | Outpatient (POV) | payer MEDICARE, SELFPAY | PROVIDERS: Visit Provider Dermatology | DX: Z00.00 Encounter for general adult medical examination without abnormal findings (principal) ==

== ENCOUNTER → 2019-08-19 13:59 | Outpatient (CLI) | payer MEDICARE, SELFPAY ==
[2019-08-19] VITALS (19 sets, daily range): BP systolic 135–152; BP diastolic 53–83; PULSE 93–101; RESP 16–20; TEMP 36.6–36.9; O2SAT 90–94; BMI 30.2
[2019-08-19 14:32] LABS: Hematocrit 21.4 % (42.0-52.0); Hemoglobin 6.1 g/dL (14.1-18.0)
--- NOTE | 2019-08-19 16:15 | PC.NURSE ---
1615-called house to get a bed for the patient to finish infusing. bed 205 assigned to patient.
--- NOTE | 2019-08-19 17:05 | PC.NURSE ---
1705-gave bedside report to angelica caraballo rn.
[2019-08-19 20:52] LABS: Hematocrit 25.1 % (42.0-52.0)
[2019-08-19 21:08] LABS: Hemoglobin 7.5 g/dL (14.1-18.0)
== END ==
PROVIDERS: PCP Family Medicine; Visit Provider Family Medicine
DX: D64.9 Anemia, unspecified (principal)
CPT/HCPCS: 36415; 36430; 85014; 85018; 86850; P9016

== ENCOUNTER 2019-08-22 13:13 | Outpatient (CLI) | payer MEDICARE, SELFPAY ==
[2019-08-22] VITALS (21 sets, daily range): BP systolic 120–168; BP diastolic 46–101; PULSE 76–92; RESP 20–23; TEMP 36.6–37.2; O2SAT 90–96; BMI 30.2
--- NOTE | 2019-08-22 19:00 | PC.NURSE ---
went to start unit and primary pump line wouldnt hook into iv had to start new lines to run blood. unit started late
--- NOTE | 2019-08-22 19:21 | PC.NURSE ---
report given to mary mantilla
[2019-08-22 22:39] LABS: Hemoglobin 9.7 g/dL (14.1-18.0)
--- NOTE | 2019-08-22 22:41 | PC.NURSE ---
NO COMPLAINTS STATED PER PATIENT. TOLERATED TRANSFUSION OF PRBC WELL. VSS. AMBULATED INDEPENDENTLY TO BATHROOM, TOLERATED WELL. PT REPORTED URINE WAS YELLOW & CLEAR. POST H&H OBTAINED AT 2214. IV DISCONTINUED, TOLERATED WELL.
== END 2019-08-22 22:30 | disposition home or self-care (01) ==
LOC: INF 13:15
PROVIDERS: PCP Family Medicine; Visit Provider Family Medicine
DX: D64.9 Anemia, unspecified (principal)
CPT/HCPCS: 36430; 85014; 85018; 86850; P9016

== ENCOUNTER → 2019-08-27 12:29 | Outpatient (CLI) | payer MEDICARE, SELFPAY ==
[2019-08-27 13:12] LABS: Basophils # 0.1 K/mm3 (0-0.2); Basophils % 1.1 % (0.1-2.0); Eosinophils # 0.3 K/mm3 (0.0-0.4); Eosinophils % 2.7 % (0.1-12.0); Hemoglobin 8.9 g/dL (14.1-18.0); Lymphocytes # 1.2 K/mm3 (0.7-4.5); Mean Corpuscular HGB Conc 28.6 g/dL (31.8-35.4); Mean Corpuscular Hemoglobin 27.3 pg (27.0-31.2); Mean Corpuscular Volume 95.2 fl (80-94); Mean Platelet Volume 11.1 fl (7.4-10.4); Monocytes # 0.8 K/mm3 (0.1-1.0); Monocytes % 7.1 % (1.7-9.3); Neutrophils # 8.4 K/mm3 (1.8-7.8); Neutrophils % 78.2 % (37.0-80.0); Platelet Count 372 K/mm3 (142-424); Red Blood Count 3.26 M/mm3 (4.60-6.20); Red Cell Distribution Width 15.2 % (11.5-17.5); White Blood Count 10.7 K/mm3 (4.8-10.8)
== END ==
PROVIDERS: Visit Provider Family Medicine
DX: D50.8 Other iron deficiency anemias (principal); D50.0 Iron deficiency anemia secondary to blood loss (chronic)
CPT/HCPCS: 36415; 85025

== ENCOUNTER 2019-09-17 12:59 | Outpatient (CLI) | payer MEDICARE, SELFPAY ==
[2019-09-17 13:16] VITALS: BP 137/55; PULSE 89; RESP 18
[2019-09-17 13:58] VITALS: BP 140/53; PULSE 91; RESP 18
== END 2019-09-17 13:58 | disposition home or self-care (01) ==
LOC: INF 12:59
PROVIDERS: Visit Provider Family Medicine
DX: D50.9 Iron deficiency anemia, unspecified (principal); T45.4X5A Adverse effect of iron and its compounds, initial encounter
CPT/HCPCS: 96365; J1439

== ENCOUNTER 2019-09-23 12:45 | Outpatient (CLI) | payer MEDICARE, SELFPAY ==
[2019-09-23 13:05] VITALS: BP 131/52; PULSE 89; RESP 20; TEMP 37
[2019-09-23 13:45] VITALS: BP 131/51; PULSE 90; RESP 20; TEMP 36.6
== END 2019-09-23 13:55 | disposition home or self-care (01) ==
LOC: INF 12:55
PROVIDERS: Visit Provider Family Medicine
DX: D50.9 Iron deficiency anemia, unspecified (principal); T45.4X5A Adverse effect of iron and its compounds, initial encounter
CPT/HCPCS: 96365; J1439

== ENCOUNTER 2019-10-21 17:54 | Inpatient (IN) ==
[2019-10-21 18:27] LABS: Basophils # 0.1 K/mm3 (0-0.2); Basophils % 0.7 % (0.1-2.0); Eosinophils # 0.3 K/mm3 (0.0-0.4); Eosinophils % 3.2 % (0.1-12.0); Lymphocytes # 1.1 K/mm3 (0.7-4.5); Lymphocytes % 12.1 % (10-50); Mean Corpuscular HGB Conc 28.3 g/dL (31.8-35.4); Mean Corpuscular Volume 97.1 fl (80-94); Mean Platelet Volume 7.7 fl (7.4-10.4); Monocytes # 0.8 K/mm3 (0.1-1.0); Monocytes % 8.8 % (1.7-9.3); Neutrophils # 6.7 K/mm3 (1.8-7.8); Platelet Count 474 K/mm3 (142-424); Red Blood Count 1.87 M/mm3 (4.60-6.20); Red Cell Distribution Width 15.2 % (11.5-17.5); White Blood Count 8.9 K/mm3 (4.8-10.8)
[2019-10-21 18:29] LABS: Microscopic, Urine URINE MICROSCOPIC (MICROSCOPIC)
[2019-10-21 18:34] LABS: Appearance,Urine CLEAR (Clear); Bilirubin,Urine Negative (Negative); Blood, Urine TRACE-I (Negative); Color,Urine YELLOW (Yellow); Glucose,Urine (UA) Negative (Negative); Ketones,Urine Negative (Negative); Leukocyte Esterase,Urine 3+ (Negative); Protein,Urine Negative (Negative); Urobilinogen,Urine 0.2 EU/dl (0.2)
[2019-10-21 18:34] LABS: Hematocrit 18.2 % (42.0-52.0); Hemoglobin 5.2 g/dL (14.1-18.0)
[2019-10-21 18:38] LABS: WBC,Urine TNTC #/hpf (0-3)
[2019-10-21 18:39] LABS: Bacteria,Urine Trace /lpf; RBC,Urine Occasional #/hpf (0-3); Squamous Epithelial Cell,Urine Occasional #/hpf (0-5)
[2019-10-21 18:50] LABS: Alanine Aminotransferase 21 U/L (12-78); Albumin Level 2.7 gm/dL (3.4-5.0); Albumin/Globulin Ratio 0.8 (1.1-1.8); Alkaline Phosphatase 124 U/L (46-116); Anion Gap 12.8 mEq/L (5-15); Aspartate Amino Transferase 20 U/L (15-37); Bilirubin,Total 0.2 mg/dL (0.2-1.0); Blood Urea Nitrogen 43 mg/dL (7-18); Calcium 7.6 mg/dL (8.5-10.1); Carbon Dioxide 29 mmol/L (21.0-32.0); Chloride 99 mmol/L (98-107); Globulin 3.4 gm/dl (1.3-3.2); Glucose 115 mg/dL (74-106); Sodium 136 mmol/L (136-145); Total Protein,Serum 6.1 gm/dL (6.4-8.2)
--- NOTE | 2019-10-21 19:08 | Emergency Department Note ---
ED Disposition Clinical Impression: Anemia Qualifiers: Anemia type: unspecified type Qualified Code(s): D64.9 - Anemia, unspecified Disposition: Admitted As Inpatient Condition on Discharge: Serious - Critical Care Critical Care Time: No Attestation: On 10/21/19, the high probability of a clinically significant, sudden or life threatening deterioration of the following system(s) required my full and direct attention, intervention and personal management. The time I documented below is in addition to time spent performing reported procedures but includes the following listed in this critical care notation. Medical Decision Making - Jay Inquiry Pt receiving controlled substance: No Vital Signs: 10/21/19 18:08 Temperature 99.1 F Temperature Source Oral Pulse Rate [Right Radial] 85 Respiratory Rate 18 Blood Pressure [Right Arm] 96/32 L Blood Pressure Mean [Right Arm] 53 02 Sat by Pulse Oximetry 92 L Oxygen Delivery Method Room Air - Lab Data Lab Results 10/21/19 18:10: WBC 8.9, RBC 1.87 L*, Hgb 5.2 L*, Hct 18.2 L*, MCV 97.1 H, MCH 27.5, MCHC 28.3 L, RDW 15.2, Plt Count 474 H, MPV 7.7, Neut % (Auto) 75.0, Lymph % (Auto) 12.1, [place] % (Auto) 8.8, Eos % (Auto) 3.2, Baso % (Auto) 0.7, Neut # (Auto) 6.7, Lymph # (Auto) 1.1, [place] # (Auto) 0.8, Eos # (Auto) 0.3, Baso # (Auto) 0.1 10/21/19 18:10: Sodium 136, Potassium 4.8, Chloride 99, Carbon Dioxide 29, Anion Gap 12.8, BUN 43 H, Creatinine 2.67 H, Estimated Creat Clear 33, Estimated GFR 23 L, Est GFR ( Amer) 28 L, Glucose 115 H, Calcium 7.6 L, Total Bilirubin 0.2, AST 20, ALT 21, Alkaline Phosphatase 124 H, Troponin I < 0.02, Total Protein 6.1 L, Albumin 2.7 L, Globulin 3.4 H, Albumin/Globulin Ratio 0.8 L 10/21/19 18:10: Lactate 4.3 H 10/21/19 18:10: Influenza Type A Ag Negative, Influenza Type B Ag Negative 10/21/19 18:25: Urine Color Yellow, Urine Appearance Clear, Urine pH 6.0, Ur Specific [place] 1.020, Urine Protein Negative, Urine Glucose (UA) Negative, Ur ine Ketones Negative, Urine Blood Trace-i, Urine Nitrate Negative, Urine Bilirubin Negative, Urine Urobilinogen 0.2, Ur Leukocyte Esterase 3+ A, Urine RBC Occasional, Urine WBC Tntc, Ur Squamous Epith Cells Occasional, Urine Bacteria Trace 10/21/19 18:51: Crossmatch (AHG) See Detail Result diagrams: 10/21/19 18:10 10/21/19 18:10 Orders (Tests/Meds): ED MEDICATIONS Generic Name Dose Route Start Last Admin Trade Name Freq PRN Reason Stop Dose Admin Sodium Chloride 250 mls @ 25 mls/hr 10/21/19 18:45 Sod Chlor 0.9% 250ml Bag IV 10/22/19 18:44 .Q10H ESME Ertapenem 1 gm/ Sodium 50 mls @ 100 mls/hr 10/21/19 20:15 Chloride IV 11/04/19 20:14 Q24H [facility] Protocol ORDERS Category Date Time Status Blood transfusion [Red Blood Cells] Stat BBK 10/21/19 18:51 Received Type and Screen Stat BBK 10/21/19 18:51 Received Troponin I Q3H Lab 10/21/19 21:15 Ordered Troponin I Q3H Lab 10/22/19 00:15 Ordered Blood Culture Stat Micro 10/21/19 18:13 Received Urine Culture Stat Micro 10/21/19 18:25 Received Medical Decision Narrative: Patient presented to the emerge department for weakness and shortness of breath. He appears pallorous on exam. He has a history of GI bleed that was worked up approximately 15 years ago. It was negative exam at that time and has been on iron ever since then. He not had a colonoscopy or endoscopy since then. He has had arrhythmias however and has been placed on Xarelto more recently. Back in July he required 2 units PRBCs due to a severe anemia and was given iron transfusions as well at that time. However according to the family no significant work-up was done at that time. He states that his stools have become getting more and more dark over the last few months. He thought that this was due to his iron however. Lab work shows severe anemia with hemoglobin of 5.3, all other cell lines are undisturbed, CMP shows an acute kidney injury along with a hyperlactatemia, the patient has no signs or symptoms of infection. Feel the increased lactate is likely due to his decreased perfusion due to his severe anemia. He will be given 2 units of PRBCs at this time as well. Feel that the patient could use repeat work-up with endoscopy and colonoscopy and admission to the hospital. He will be admitted to Dr. Jama. General Adult HPI - General Chief complaint: Shortness of Breath/Dyspnea Stated complaint: francie patterson, been on chemo pills, Time Seen by Provider: 10/21/19 18:30 Mode of Arrival: Wheelchair Limitations: Physical Limitations Description of Symptoms (Recalled from ER Triage Doc. by RN): pt presents to ed with c/o shortness of breath and "muscle spasms." - History of Present Illness HPI narrative: Patient presented to the emergency department for shortness of breath and w eakness. He is currently on Xarelto for atrial fibrillation and has a massive hernia. Patient states that back in July he was given 2 units of blood and started on iron transfusions because he was low on blood. He states that he did not have any evaluation at that time. His family says that back in 2004 he had a extensive evaluation done at [facility] with endoscopy and colonoscopy pe rformed. Those were reportedly negative and they assumed that the bleeding was coming from his hernia and has not had any problems since then by taking the iron. Patient states that he is gotten significantly weaker and had more shortness of breath over the last week or 2, he says he has dark schools but he is had lots of dark stools, it may have been darker more recently as well. He attributes most of this to his iron however and did not think that he was bleeding. - Related Data Home Medications Medication Instructions Recorded Confirmed Amlodipine Besylate [Amlodipine 10 mg PO DAILY 09/23/17 10/21/19 10mg Tab] Pantoprazole Sodium [Pantoprazole 40 mg PO DAILY 09/23/17 10/21/19 20mg Tab] Rivaroxaban [Xarelto 10mg tablet] 20 mg PO DAILY 09/23/17 10/21/19 lisinopriL [Lisinopril 40mg Tablet] 40 mg PO DAILY 09/23/17 10/21/19 Ferrous Sulfate [Iron] 325 mg PO DAILY 03/04/18 10/21/19 Furosemide [Furosemide 40MG tAB] 40 mg PO BID 03/04/18 10/21/19 Metoprolol Tartrate 50 mg PO DAILY 03/05/18 10/21/19 Allergies Allergy/AdvReac Type Severity Reaction Status Date / Time codeine [CODEINE] Allergy Unknown Verified 10/21/19 18:11 [facility] History - Hepatitis A Screen Drug use history?: No High risk sexual behaviors?: No History of sexually transmitted infection?: No Currently employed?: No Childcare worker?: No Do you have indoor plumbing?: Yes Do you have electricity?: Yes Attestation statement:: This patient has been screened for Hepatitis A risk factors. Medical History: Reports:: Arrhythmia, Atrial Fibrillation, Cancer (skin), Congestive Heart Failure, Hypertension, Palpitations Denies:: Diabetes Mellitus Type 1, Diabetes Mellitus Type 2, Internal Pacemaker, Lung Disease, MRSA, Seizures Other Medical History: Reports: Anemia Laterality Cases: Left: Total Hip Replacement, Bilateral: Other Other Surgeries: Yes: Appendectomy. No: Pacemaker Amputation: No Fractures: Yes - Social History Smoking Status: Former smoker Alcohol Intake: never Occupational Status: retired Housing: house Household Members: spouse Family Hx:: Unable to obtain ROS Obtained: Yes All systems reviewed & no additional complaints Physical Exam - General General appearance: alert - Head Head exam: atraumatic - Eye Eye exam: Present: normal appearance - ENT ENT exam: Present: normal exam - Neck Neck exam: Present: normal inspection - Chest Chest inspection: Present: normal inspection - Respiratory Respiratory exam: Present: normal lung sounds bilaterally - Cardiovascular Cardiovascular exam: Present: regular rate - Abdominal Exam Abdominal exam: Present: soft, hernia - Extremities Exam Extremities exam: Present: normal inspection - Back Exam Back exam: Present: normal inspection - Neurological Exam Neurological exam: Present: alert, oriented X3 - Psychiatric Psychiatric exam: Present: normal affect - Skin Skin exam: Present: pallor
--- NOTE | 2019-10-21 20:56 | Sepsis Event Note ---
[facility] Tissue Perfusion Eval Sepsis Re-Evaluation Performed: Yes Date Performed: 10/21/19 Time Performed: 20:56
[2019-10-22 05:36] LABS: Basophils # 0.1 K/mm3 (0-0.2); Basophils % 0.9 % (0.1-2.0); Eosinophils # 0.3 K/mm3 (0.0-0.4); Eosinophils % 4.3 % (0.1-12.0); Lymphocytes # 0.9 K/mm3 (0.7-4.5); Mean Corpuscular HGB Conc 29.3 g/dL (31.8-35.4); Mean Corpuscular Volume 93.2 fl (80-94); Mean Platelet Volume 8.3 fl (7.4-10.4); Monocytes # 0.7 K/mm3 (0.1-1.0); Monocytes % 8.9 % (1.7-9.3); Neutrophils # 5.7 K/mm3 (1.8-7.8); Neutrophils % 74.9 % (37.0-80.0); Platelet Count 402 K/mm3 (142-424); Red Cell Distribution Width 16.5 % (11.5-17.5); White Blood Count 7.7 K/mm3 (4.8-10.8)
[2019-10-22 05:41] LABS: Hematocrit 21.4 % (42.0-52.0); Hemoglobin 6.3 g/dL (14.1-18.0)
[2019-10-22 05:50] LABS: Anion Gap 8.5 mEq/L (5-15); Calcium 7.1 mg/dL (8.5-10.1)
--- NOTE | 2019-10-22 07:31 | Consult Report ---
*Admission Date: 10/22/19 *Reason for consult:: request for EGD *History of present illness: 79yo male seen in consultation of Dr. Gould for esophagogastroduodenoscopy. He has a complex past medical history and has chronically been on Xarelto. He has had Xarelto held on at least 2 separate occasions recently secondary to significant anemia. He has now presented once again with significant anemia and the surgical service was consulted for endoscopic evaluation. He has a very complicated medical history including failed colonoscopy secondary to large complex inguinal hernia. He has reportedly been deemed "unacceptable risk" for hernia repair. Review of Systems - *Cardiovascular Denies chest pain - Hematologic/Lymphatic Reports easy bruising [facility] History Medical History: Reports:: Arrhythmia, Atrial Fibrillation, Cancer (skin), Congestive Heart Failure, Hypertension, Palpitations Denies:: Diabetes Mellitus Type 1, Diabetes Mellitus Type 2, Internal Pacemaker, Lung Disease, MRSA, Seizures *Have you ever received a pneumonia vaccine?: Yes *Have you received a flu vaccine this season?: Yes Other Medical History: Reports: Anemia Laterality Cases: Left: Total Hip Replacement, Bilateral: Other Other Surgeries: Yes: Appendectomy, Colonoscopy, EGD. No: Pacemaker Amputation: No Fractures: Yes - *Social History Smoking Status: Former smoker Tobacco Type: cigarettes # Packs/Day (cigarettes): 2 Alcohol Intake: current Alcohol Intake Frequency:: holidays/special occasions only *Occupational Status:: retired Housing: house Household Members: spouse *Travel in the last 8 weeks: None Family Hx:: Anemia, Bleeding Disorder, Diabetes, Heart Attack, Hyperlipidemia, Hypertension, Kidney Disease, Stroke Meds Home Medications Medication Instructions Recorded Confirmed Type Amlodipine Besylate [Amlodipine 10 mg PO DAILY 09/23/17 10/21/19 History 10mg Tab] Pantoprazole Sodium [Pantoprazole 40 mg PO DAILY 09/23/17 10/21/19 History 20mg Tab] Rivaroxaban [Xarelto 10mg tablet] 20 mg PO DAILY 09/23/17 10/21/19 History lisinopriL [Lisinopril 40mg Tablet] 40 mg PO DAILY 09/23/17 10/21/19 History Ferrous Sulfate [Iron] 65 mg PO DAILY 03/04/18 10/21/19 History Furosemide [Furosemide 40MG tAB] 40 mg PO BID 03/04/18 10/21/19 History Metoprolol Tartrate 50 mg PO DAILY 03/05/18 10/21/19 History Allergies Allergy/AdvReac Type Severity Reaction Status Date / Time codeine [CODEINE] Allergy Unknown Verified 10/21/19 18:11 Exam Vital signs and Labs for Last 24 Hours: Temp Pulse Resp BP Pulse Ox 98.5 F 93 H 21 130/55 L 94 L 10/22/19 05:18 10/22/19 05:18 10/22/19 05:18 10/22/19 05:18 10/22/19 05:18 Laboratory Results - last 24 hr 10/21/19 18:10: WBC 8.9, RBC 1.87 L*, Hgb 5.2 L*, Hct 18.2 L*, MCV 97.1 H, MCH 27.5, MCHC 28.3 L, RDW 15.2, Plt Count 474 H, MPV 7.7, Neut % (Auto) 75.0, Lymph % (Auto) 12.1, [place] % (Auto) 8.8, Eos % (Auto) 3.2, Baso % (Auto) 0.7, Neut # (Auto) 6.7, Lymph # (Auto) 1.1, [place] # (Auto) 0.8, Eos # (Auto) 0.3, Baso # (Auto) 0.1 10/21/19 18:10: Sodium 136, Potassium 4.8, Chloride 99, Carbon Dioxide 29, Anion Gap 12.8, BUN 43 H, Creatinine 2.67 H, Estimated Creat Clear 33, Estimated GFR 23 L, Est GFR ( Amer) 28 L, Glucose 115 H, Calcium 7.6 L, Total Bilirubin 0.2, AST 20, ALT 21, Alkaline Phosphatase 124 H, Troponin I < 0.02, Total Protein 6.1 L, Albumin 2.7 L, Globulin 3.4 H, Albumin/Globulin Ratio 0.8 L 10/21/19 18:10: Lactate 4.3 H 10/21/19 18:10: Influenza Type A Ag Negative, Influenza Type B Ag Negative 10/21/19 18:25: Urine Color Yellow, Urine Appearance Clear, Urine pH 6.0, Ur Specific [place] 1.020, Urine Protein Negative, Urine Glucose (UA) Negative, Urine Ketones Negative, Urine Blood Trace-i, Urine Nitrate Negative, Urine Bilirubin Negative, Urine Urobilinogen 0.2, Ur Leukocyte Esterase 3+ A, Urine RBC Occasional, Urine WBC Tntc, Ur Squamous Epith Cells Occasional, Urine Bacteria Trace 10/21/19 18:51: Blood Type O Positive, Antibody Screen Negative, Crossmatch ([facility]) See Detail 10/21/19 21:17: Troponin I < 0.02 10/21/19 22:09: Lactate 1.7 10/22/19 00:20: Troponin I < 0.02 10/22/19 05:24: WBC 7.7, RBC 2.30 L, Hgb 6.3 L* D, Hct 21.4 L*, MCV 93.2, MCH 27.3, MCHC 29.3 L, RDW 16.5, Plt Count 402, MPV 8.3, Neut % (Auto) 74.9, Lymph % (Auto) 11.0, [place] % (Auto) 8.9, Eos % (Auto) 4.3, Baso % (Auto) 0.9, Neut # (Auto) 5.7, Lymph # (Auto) 0.9, [place] # (Auto) 0.7, Eos # (Auto) 0.3, Baso # (Auto) 0.1 10/22/19 05:24: Sodium 138, Potassium 4.5, Chloride 103, Carbon Dioxide 31, Anion Gap 8.5, BUN 36 H, Creatinine 2.19 H, Estimated Creat Clear 39, Estimated GFR 29 L, Est GFR ( Amer) 35 L D, Glucose 110 H, Calcium 7.1 L I & O for Last 24 hours: Intake & Output 10/19/19 10/20/19 10/21/19 10/22/19 11:59 11:59 11:59 11:59 Intake Total 2270.54 / 2270.54 Output Total 1050 / 1050 Balance 1220.54 / 1220.54 Weight 227 lb 8 oz - Constitutional no acute distress - *Routine Respiratory Exam Absent: respiratory distress - *Routine Cardiovascular Exam Absent: tachycardia Results - Labs 10/22/19 05:24 10/22/19 05:24 Laboratory Results - last 24 hr 10/21/19 18:10: WBC 8.9, RBC 1.87 L*, Hgb 5.2 L*, Hct 18.2 L*, MCV 97.1 H, MCH 27.5, MCHC 28.3 L, RDW 15.2, Plt Count 474 H, MPV 7.7, Neut % (Auto) 75.0, Lymph % (Auto) 12.1, [place] % (Auto) 8.8, Eos % (Auto) 3.2, Baso % (Auto) 0.7, Neut # (Auto) 6.7, Lymph # (Auto) 1.1, [place] # (Auto) 0.8, Eos # (Auto) 0.3, Baso # (Auto) 0.1 10/21/19 18:10: Sodium 136, Potassium 4.8, Chloride 99, Carbon Dioxide 29, Anion Gap 12.8, BUN 43 H, Creatinine 2.67 H, Estimated Creat Clear 33, Estimated GFR 23 L, Est GFR ( Amer) 28 L, Glucose 115 H, Calcium 7.6 L, Total Bilirubin 0.2, AST 20, ALT 21, Alkaline Phosphatase 124 H, Troponin I < 0.02, Total Protein 6.1 L, Albumin 2.7 L, Globulin 3.4 H, Albumin/Globulin Ratio 0.8 L 10/21/19 18:10: Lactate 4.3 H 10/21/19 18:10: Influenza Type A Ag Negative, Influenza Type B Ag Negative 10/21/19 18:25: Urine Color Yellow, Urine Appearance Clear, Urine pH 6.0, Ur Specific [place] 1.020, Urine Protein Negative, Urine Glucose (UA) Negative, Urine Ketones Negative, Urine Blood Trace-i, Urine Nitrate Negative, Urine Bilirubin Negative, Urine Urobilinogen 0.2, Ur Leukocyte Esterase 3+ A, Urine RBC Occasional, Urine WBC Tntc, Ur Squamous Epith Cells Occasional, Urine Bacteria Trace 10/21/19 18:51: Blood Type O Positive, Antibody Screen Negative, Crossmatch ([facility]) See Detail 10/21/19 21:17: Troponin I < 0.02 10/21/19 22:09: Lactate 1.7 10/22/19 00:20: Troponin I < 0.02 10/22/19 05:24: WBC 7.7, RBC 2.30 L, Hgb 6.3 L* D, Hct 21.4 L*, MCV 93.2, MCH 27.3, MCHC 29.3 L, RDW 16.5, Plt Count 402, MPV 8.3, Neut % (Auto) 74.9, Lymph % (Auto) 11.0, [place] % (Auto) 8.9, Eos % (Auto) 4.3, Baso % (Auto) 0.9, Neut # (Auto) 5.7, Lymph # (Auto) 0.9, [place] # (Auto) 0.7, Eos # (Auto) 0.3, Baso # (Auto) 0.1 10/22/19 05:24: Sodium 138, Potassium 4.5, Chloride 103, Carbon Dioxide 31, Anion Gap 8.5, BUN 36 H, Creatinine 2.19 H, Estimated Creat Clear 39, Estimated GFR 29 L, Est GFR ( Amer) 35 L D, Glucose 110 H, Calcium 7.1 L Assessment and Plan (1) Anemia Current visit: Yes Status: Acute Qualifiers: Anemia type: unspecified type Qualified Code(s): D64.9 - Anemia, unspecified Category: Medical Code(s): D64.9 - Anemia, unspecified EGD this AM I have discussed the risks and benefits including, but not limited to: Bleeding Infection Damage to surrounding tissue Inherent risks of sedation The patient agrees to proceed.
--- NOTE | 2019-10-22 07:31 | History & Physical Report ---
*Admission Date: 10/21/19 *Chief complaint: weakness *History of present illness: 79-year-old male with history of atrial fibrillation requiring anticoagulation as well as history anemia presented to the emergency department with increasing weakness. Patient has a history of anemia and was transfused 2 months ago with 2 units of packed red blood cells. Prior gastroenterologic work-up has been negative for source of bleeding although patient's case is complicated by large inguinal hernia that prohibits complete colonoscopy. Patient was anemic and admitted and transfused 2 units of packed red blood cells. He reports some improvement in his general feelings of weakness but admits to dyspnea on exerti on. He denies chest pain. [facility] History I have reviewed the patient's past medical history: Yes Medical History: Reports:: Arrhythmia, Atrial Fibrillation, Cancer (skin), Congestive Heart Failure, Hypertension, Palpitations Denies:: Diabetes Mellitus Type 1, Diabetes Mellitus Type 2, Internal Pacemaker, Lung Disease, MRSA, Seizures *Have you ever received a pneumonia vaccine?: Yes *Have you received a flu vaccine this season?: Yes Other Medical History: Reports: Anemia Laterality Cases: Left: Total Hip Replacement, Bilateral: Other Other Surgeries: Yes: Appendectomy, Colonoscopy, EGD. No: Pacemaker Amputation: No Fractures: Yes - *Social History Smoking Status: Former smoker Tobacco Type: cigarettes # Packs/Day (cigarettes): 2 Alcohol Intake: current Alcohol Intake Frequency:: holidays/special occasions only *Occupational Status:: retired Housing: house Household Members: spouse *Travel in the last 8 weeks: None Family Hx:: Anemia, Bleeding Disorder, Diabetes, Heart Attack, Hyperlipidemia, Hypertension, Kidney Disease, Stroke Review of Systems - Constitutional Reports fatigue, Reports lack of energy, Reports malaise, Denies body ache(s), Denies chills, Denies fever(s) - *Cardiovascular Reports shortness of breath with activity, Denies chest pain, Denies chest pain at rest - *Respiratory Reports shortness of breath, Reports shortness of breath with activity, Denies chest congestion, Denies cough - *Gastrointestinal Denies abdominal pain, Denies constipation Comments: Black stools Meds Home Medications Medication Instructions Recorded Confirmed Type Amlodipine Besylate [Amlodipine 10 mg PO DAILY 09/23/17 10/21/19 History 10mg Tab] Pantoprazole Sodium [Pantoprazole 40 mg PO DAILY 09/23/17 10/21/19 History 20mg Tab] Rivaroxaban [Xarelto 10mg tablet] 20 mg PO DAILY 09/23/17 10/21/19 History lisinopriL [Lisinopril 40mg Tablet] 40 mg PO DAILY 09/23/17 10/21/19 History Ferrous Sulfate [Iron] 65 mg PO DAILY 03/04/18 10/21/19 History Furosemide [Furosemide 40MG tAB] 40 mg PO BID 03/04/18 10/21/19 History Metoprolol Tartrate 50 mg PO DAILY 03/05/18 10/21/19 History Allergies Allergy/AdvReac Type Severity Reaction Status Date / Time codeine [CODEINE] Allergy Unknown Verified 10/21/19 18:11 Exam Vital signs and Labs for Last 24 Hours: Temp Pulse Resp BP Pulse Ox 98.5 F 93 H 21 130/55 L 94 L 10/22/19 05:18 10/22/19 05:18 10/22/19 05:18 10/22/19 05:18 10/22/19 05:18 Laboratory Results - last 24 hr 10/21/19 18:10: WBC 8.9, RBC 1.87 L*, Hgb 5.2 L*, Hct 18.2 L*, MCV 97.1 H, MCH 27.5, MCHC 28.3 L, RDW 15.2, Plt Count 474 H, MPV 7.7, Neut % (Auto) 75.0, Lymph % (Auto) 12.1, [place] % (Auto) 8.8, Eos % (Auto) 3.2, Baso % (Auto) 0.7, Neut # (Auto) 6.7, Lymph # (Auto) 1.1, [place] # (Auto) 0.8, Eos # (Auto) 0.3, Baso # (Auto) 0.1 10/21/19 18:10: Sodium 136, Potassium 4.8, Chloride 99, Carbon Dioxide 29, Anion Gap 12.8, BUN 43 H, Creatinine 2.67 H, Estimated Creat Clear 33, Estimated GFR 23 L, Est GFR ( Amer) 28 L, Glucose 115 H, Calcium 7.6 L, Total Bilirubin 0.2, AST 20, ALT 21, Alkaline Phosphatase 124 H, Troponin I < 0.02, Total Protein 6.1 L, Albumin 2.7 L, Globulin 3.4 H, Albumin/Globulin Ratio 0.8 L 10/21/19 18:10: Lactate 4.3 H 10/21/19 18:10: Influenza Type A Ag Negative, Influenza Type B Ag Negative 10/21/19 18:25: Urine Color Yellow, Urine Appearance Clear, Urine pH 6.0, Ur Specific [place] 1.020, Urine Protein Negative, Urine Glucose (UA) Negative, Urine Ketones Negative, Urine Blood Trace-i, Urine Nitrate Negative, Urine Bilirubin Negative, Urine Urobilinogen 0.2, Ur Leukocyte Esterase 3+ A, Urine RBC Occasional, Urine WBC Tntc, Ur Squamous Epith Cells Occasional, Urine Bacte marlene Trace 10/21/19 18:51: Blood Type O Positive, Antibody Screen Negative, Crossmatch ([facility]) See Detail 10/21/19 21:17: Troponin I < 0.02 10/21/19 22:09: Lactate 1.7 10/22/19 00:20: Troponin I < 0.02 10/22/19 05:24: WBC 7.7, RBC 2.30 L, Hgb 6.3 L* D, Hct 21.4 L*, MCV 93.2, MCH 27.3, MCHC 29.3 L, RDW 16.5, Plt Count 402, MPV 8.3, Neut % (Auto) 74.9, Lymph % (Auto) 11.0, [place] % (Auto) 8.9, Eos % (Auto) 4.3, Baso % (Auto) 0.9, Neut # (Auto) 5.7, Lymph # (Auto) 0.9, [place] # (Auto) 0.7, Eos # (Auto) 0.3, Baso # (Auto) 0.1 10/22/19 05:24: Sodium 138, Potassium 4.5, Chloride 103, Carbon Dioxide 31, Anion Gap 8.5, BUN 36 H, Creatinine 2.19 H, Estimated Creat Clear 39, Estimated GFR 29 L, Est GFR ( Amer) 35 L D, Glucose 110 H, Calcium 7.1 L I & O for Last 24 hours: Intake & Output 10/19/19 10/20/19 10/21/19 10/22/19 11:59 11:59 11:59 11:59 Intake Total 2270.54 / 2270.54 Output Total 1050 / 1050 Balance 1220.54 / 1220.54 Weight 227 lb 8 oz Narrative: Patient is awake and alert sitting up in bed. While seated his head is held forward and flexion. Pupils are reactive to light. Oropharynx is moist. Neck is without lymphadenopathy. Lungs are clear. Heart has a regular rate and rhythm. Abdomen is soft. Bowel sounds are present. Patient has a large inguinal hernia containing intestine. Extremities are warm to the touch and he has 2+ lower extremity edema. 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 Transfuse to keep hemoglobin above 8. Patient is received 2 units of packed red blood cells currently and will receive an additional 2 units today. H&H will be repeated 1 hour after additional transfusion 2. Hold Xarelto permanently 3. Consult has been placed to the on-call surgeon for EGD 4. Further work-up of GI source of bleeding is going to be difficult considering the patient's large hernia which is going to prohibit colonoscopy. I am unsure whether he would tolerate bowel prep for barium enema.
--- NOTE | 2019-10-22 07:35 | Pharmacy Consult Notes ---
[facility] Pharmacy VTE Monitoring - Patient Demographics Admission date: 10/21/19 Report Date: 10/22/19 Time: 07:35 Allergies/Adverse Reactions: Patient Allergies codeine [CODEINE] Allergy (Unknown, Verified 10/21/19 18:11) Height: 1.88 m Weight: 103.192 kg Patient Problems: Current Active Problems Anemia (Acute) - VTE Risk Labs: VTE Related Lab Results Hgb 6.3 g/dL (14.1-18.0) L* D 10/22/19 05:24 Hct 21.4 % (42.0-52.0) L* 10/22/19 05:24 Plt Count 402 K/mm3 (142-424) 10/22/19 05:24 BUN 36 mg/dL (7-18) H 10/22/19 05:24 Creatinine 2.19 mg/dL (0.70-1.30) H 10/22/19 05:24 Estimated Creat Clear 39 mL/min (50-200) 10/22/19 05:24 Was VTE Risk Assessment Performed: No VTE Score: 7 VTE Risk Level: Moderate Risk - Prophylaxis VTE Prophylaxis Ordered?: Yes Types of VTE Prophylaxis: TEDS Knee High Location of Applied Device: Bilateral Lower Extremeties
--- NOTE | 2019-10-22 10:10 | Progress Note ---
[facility] Anesthesia Checklist - Patient Identification Patient Identification: Arm Band, Family, Verbal (Name & ) - Structural Data Admitted From: Inpatient Planned Operative Procedure/s: EGD Consent for Planned Operative Procedure(s) Verified: Yes Verified Documents: Surgical Consent, History and Physical - NPO Status Verified Time NPO: 00:00 - Chart Verification Results Verified: CBC, BMP - Additional verifications Anesthesia Reactions: No - Airway Assessment C-Spine Mobility Assessed: Yes (Limited neck ROM) TMJ Mobility Assessed: No Dentition: Poor Dentition (decay present, missing many teeth,) - Neurological Assessment Level of Consciousness: Awake, Appropriate, Follows Commands, Lethargic Hx Seizures: No Numbness or tingling in extremities: No - Anesthesia Plan Anesthesia Risk discussed: Yes Anesthesia Plan: Verified ASA Class: III Anesthesia Type: MAC [facility] History I have reviewed the patient's past medical history: Yes Medical History: Reports:: Arrhythmia, Atrial Fibrillation, Cancer (skin), Congestive Heart Failure, Hypertension, Palpitations Denies:: Diabetes Mellitus Type 1, Diabetes Mellitus Type 2, Internal Pacemaker, Lung Disease, MRSA, Seizures *Have you ever received a pneumonia vaccine?: Yes *Have you received a flu vaccine this season?: Yes Other Medical History: Reports: Anemia Anesthesia experience/problems:: no complications Laterality Cases: Left: Total Hip Replacement, Bilateral: Other Other Surgeries: Yes: Appendectomy, Colonoscopy, EGD. No: Pacemaker Amputation: No Fractures: Yes - *Social History Smoking Status: Former smoker Tobacco Type: cigarettes # Packs/Day (cigarettes): 2 Alcohol Intake: current Alcohol Intake Frequency:: holidays/special occasions only Substance Use Type: denies use *Occupational Status:: retired Housing: house Household Members: spouse *Travel in the last 8 weeks: None Family Hx:: Anemia, Bleeding Disorder, Diabetes, Heart Attack, Hyperlipidemia, Hypertension, Kidney Disease, Stroke
--- NOTE | 2019-10-22 10:43 | Procedure Note ---
- Procedure: Date: 10/22/19 Procedure Performed:: Esophagogastroduodenoscopy with biopsy Indications:: Anemia; possible gastrointestinal hemorrhage Performing Provider:: Claude Bloom MD Referring Provider:: Dr. Gould Sedation:: Monitored anesthesia care Procedure:: After informed consent was obtained the patient was taken to the endoscopy suite. Sedation ensued after the patient was transferred to the left lateral decubitus position. Pulse, blood pressure, and oxygen saturation were monitored throughout the procedure. The endoscope was advanced beyond the duodenal bulb. Retroflexion within the gastric lumen was accomplished. The gastroscope was carefully removed and the patient was transferred to recovery in stable condition. Please see "findings" and "specimens" below for detail. 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
--- NOTE | 2019-10-22 15:30 | Electrocardiograph Report ---
APPROVED REPORT Exam: Resting ECG HR:87 bpm ECG Measurements Heart Rate 87 AXES PA 220 P 47 QRSd 114 QRS -39 QT 360 T73 QTc 433 <Conclusion> Sinus rhythm with 1st degree AV block Left axis deviation incomplete lbbb Abnormal ECG Electronically signed by : Dio Candelaria, 10/22/2019 15:29:32
[2019-10-22 18:40] LABS: Hematocrit 28.6 % (42.0-52.0); Hemoglobin 8.4 g/dL (14.1-18.0)
[2019-10-23 05:51] LABS: Basophils % 0.5 % (0.1-2.0); Eosinophils # 0.4 K/mm3 (0.0-0.4); Hematocrit 26.2 % (42.0-52.0); Lymphocytes # 0.9 K/mm3 (0.7-4.5); Lymphocytes % 10.6 % (10-50); Mean Corpuscular HGB Conc 29.9 g/dL (31.8-35.4); Mean Corpuscular Volume 91.9 fl (80-94); Mean Platelet Volume 7.3 fl (7.4-10.4); Monocytes # 0.7 K/mm3 (0.1-1.0); Monocytes % 8.7 % (1.7-9.3); Neutrophils # 6.2 K/mm3 (1.8-7.8); Neutrophils % 75.2 % (37.0-80.0); Platelet Count 378 K/mm3 (142-424); Red Blood Count 2.85 M/mm3 (4.60-6.20); White Blood Count 8.2 K/mm3 (4.8-10.8)
[2019-10-23 05:53] LABS: Calcium 7.7 mg/dL (8.5-10.1)
[2019-10-23 06:00] LABS: Hemoglobin 7.8 g/dL (14.1-18.0)
--- NOTE | 2019-10-23 07:08 | Progress Note ---
Internal Medicine - PN: Subj *Date: 10/23/19 *Time: 07:05 Interval history: Patient has no complaints this morning other than itching from the waist up. He has used various methods to try to relieve the itching and so far is unsuccessful. He did have a bowel movement yesterday evening and describes it as black in color Exam Vital signs and Labs for Last 24 Hours: Temp Pulse Resp BP Pulse Ox 98.6 F 80 20 133/58 L 90 L 10/23/19 03:55 10/23/19 04:00 10/23/19 03:55 10/23/19 03:55 10/23/19 03:55 Laboratory Results - last 24 hr 10/21/19 18:51: Blood Type O Positive, Antibody Screen Negative, Crossmatch ([facility]) See Detail 10/22/19 18:19: Hgb 8.4 L D, Hct 28.6 L 10/23/19 05:32: WBC 8.2, RBC 2.85 L, Hgb 7.8 L*, Hct 26.2 L, MCV 91.9, MCH 27.5, MCHC 29.9 L, RDW 16.0, Plt Count 378, MPV 7.3 L, Neut % (Auto) 75.2, Lymph % (Auto) 10.6, [place] % (Auto) 8.7, Eos % (Auto) 5.0, Baso % (Auto) 0.5, Neut # (Auto) 6.2, Lymph # (Auto) 0.9, [place] # (Auto) 0.7, Eos # (Auto) 0.4, Baso # (Auto) 0.0 10/23/19 05:32: Sodium 138, Potassium 4.0, Chloride 102, Carbon Dioxide 33 H, Anion Gap 7.0, BUN 25 H D, Creatinine 1.66 H D, Estimated Creat Clear 51, Estimated GFR 40 L, Est GFR ( Amer) 48 L D, Glucose 100, Calcium 7.7 L I & O for Last 24 hours: Intake & Output 10/20/19 10/21/19 10/22/19 10/23/19 11:59 11:59 11:59 11:59 Intake Total 2572.54 / 2572.54 180 / 180 Output Total 1500 / 1500 3075 / 3075 Balance 1072.54 / 1072.54 -2895 / -2895 Weight 227 lb 8 oz 228 lb 5 oz Microbiology Reports for the Last 24 Hours: Microbiology 10/21/19 18:25 Urine,Clean Catch Urine Culture - Preliminary Narrative: Patient is sitting up in side of the bed. He does not appear to be in any distress. Skin exam does not reveal any significant rash. Lungs are clear. Heart has a regular rate and rhythm. 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 Category: Medical Code(s): D50.0 - Iron deficiency anemia secondary to blood loss (chronic) (2) Anemia Current visit: Yes Status: Acute Qualifiers: Anemia type: unspecified type Qualified Code(s): D64.9 - Anemia, unspecified Category: Medical Code(s): D64.9 - Anemia, unspecified (3) History of atrial fibrillation Current visit: Yes Status: Acute Category: Medical Code(s): Z86.79 - Personal history of other diseases of the circulatory system (4) [facility] current use of anticoagulant Current visit: Yes Status: Acute Category: Medical Code(s): Z79.01 - penitentiary (current) use of anticoagulants - Assessment and plan all Dx Assessment and Plan for all problems:: 1. Transfuse additional 2 units of packed red cells today. 2. Continue intermittent Lasix use to avoid volume overload 3. I had a long discussion with the patient and his family yesterday regarding further evaluation of his GI tract. Evaluation is complicated by the large inguinal hernia which as of 2008 contained most of his ileum. I recommended evaluation for any further work-up by transportation broker 4. Continue to hold Xarelto. I believe this will need to be held indefinitely
[2019-10-23 19:10] LABS: Hematocrit 30.9 % (42.0-52.0); Hemoglobin 9.5 g/dL (14.1-18.0)
[2019-10-24 05:31] LABS: Basophils % 0.5 % (0.1-2.0); Eosinophils # 0.5 K/mm3 (0.0-0.4); Eosinophils % 6.4 % (0.1-12.0); Hemoglobin 9.2 g/dL (14.1-18.0); Lymphocytes # 0.9 K/mm3 (0.7-4.5); Lymphocytes % 10.3 % (10-50); Mean Corpuscular HGB Conc 31.2 g/dL (31.8-35.4); Mean Corpuscular Volume 90.1 fl (80-94); Mean Platelet Volume 9.9 fl (7.4-10.4); Monocytes # 0.9 K/mm3 (0.1-1.0); Monocytes % 10.8 % (1.7-9.3); Neutrophils # 5.9 K/mm3 (1.8-7.8); Platelet Count 241 K/mm3 (142-424); Red Blood Count 3.27 M/mm3 (4.60-6.20); Red Cell Distribution Width 15.3 % (11.5-17.5); White Blood Count 8.2 K/mm3 (4.8-10.8)
[2019-10-24 05:32] LABS: Hematocrit 29.4 % (42.0-52.0)
[2019-10-24 05:43] LABS: Anion Gap 12.6 mEq/L (5-15); Calcium 7.8 mg/dL (8.5-10.1)
--- NOTE | 2019-10-24 07:58 | Progress Note ---
Internal Medicine - PN: Subj *Date: 10/24/19 *Time: 07:56 Interval history: Patient has no complaints this morning. He reports he is feeling better. He feels like edema is also improving. He received 2 units of packed red blood cells yesterday. Posttransfusion hemoglobin was 9.5. Hemoglobin this morning is 9.2. Exam Vital signs and Labs for Last 24 Hours: Temp Pulse Resp BP Pulse Ox 98.5 F 91 H 20 156/58 H 93 L 10/24/19 04:00 10/24/19 04:00 10/24/19 04:00 10/24/19 04:00 10/24/19 04:00 Laboratory Results - last 24 hr 10/21/19 18:25: Urine Color Yellow, Urine Appearance Clear, Urine pH 6.0, Ur Specific [place] 1.020, Urine Protein Negative, Urine Glucose (UA) Negative, Urine Ketones Negative, Urine Blood Trace-i, Urine Nitrate Negative, Urine Bilirubin Negative, Urine Urobilinogen 0.2, Ur Leukocyte Esterase 3+ A, Urine RBC Occasional, Urine WBC Tntc, Ur Squamous Epith Cells Occasional, Urine Bacteria Trace 10/21/19 18:51: Blood Type O Positive, Antibody Screen Negative, Crossmatch (AHG) See Detail 10/23/19 18:48: Hgb 9.5 L D, Hct 30.9 L 10/24/19 05:10: WBC 8.2, RBC 3.27 L, Hgb 9.2 L, Hct 29.4 L, MCV 90.1, MCH 28.1, MCHC 31.2 L, RDW 15.3, Plt Count 241 D, MPV 9.9, Neut % (Auto) 72.0, Lymph % (Auto) 10.3, [place] % (Auto) 10.8 H, Eos % (Auto) 6.4, Baso % (Auto) 0.5, Neut # (Auto) 5.9, Lymph # (Auto) 0.9, [place] # (Auto) 0.9, Eos # (Auto) 0.5 H, Baso # (Auto) 0.0 10/24/19 05:10: Sodium 144, Potassium 4.6, Chloride 104, Carbon Dioxide 32, Anion Gap 12.6, BUN 21 H, Creatinine 1.54 H, Estimated Creat Clear 54, Estimated GFR 44 L, Est GFR ( Amer) 53 L, Glucose 105, Calcium 7.8 L I & O for Last 24 hours: Intake & Output 10/21/19 10/22/19 10/23/19 10/24/19 11:59 11:59 11:59 11:59 Intake Total 2572.54 / 2572.54 280 / 280 737 / 737 Output Total 1500 / 1500 3725 / 3725 925 / 925 Balance 1072.54 / 1072.54 -3445 / -3445 -188 / -188 Weight 227 lb 8 oz 228 lb 5.007 oz 225 lb 4 oz Microbiology Reports for the Last 24 Hours: Microbiology 10/21/19 18:25 Urine,Clean Catch Urine Culture - Final Klebsiella oxytoca 10/21/19 18:13 Blood Blood Culture - Preliminary NO GROWTH AFTER 48 HOURS 10/21/19 18:13 Blood Blood Culture - Preliminary NO GROWTH AFTER 48 HOURS Narrative: Patient is awake and alert this morning. Sitting comfortably in bed. Lungs are clear. Heart has a regular rate and rhythm. Subcutaneous edema in the right arm is improving. Lower extremity edema is also improving but remains 2+. 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 Repeat H&H this afternoon. If H&H remained stable then patient will be discharged home with outpatient follow-up. If H&H declines at all patient will be kept for further monitoring. 2. Continue twice daily Lasix
[2019-10-24 14:27] LABS: Hematocrit 31.7 % (42.0-52.0); Hemoglobin 9.3 g/dL (14.1-18.0)
--- NOTE | 2019-10-26 06:58 | Discharge Summary ---
General - General Admission date:: 10/21/19 Discharge date: 10/24/19 HPI HPI: 79-year-old male with history of atrial fibrillation requiring anticoagulation as well as history anemia presented to the emergency department with increasing weakness. Patient has a history of anemia and was transfused 2 months ago with 2 units of packed red blood cells. Prior gastroenterologic work-up has been negative for source of bleeding although patient's case is complicated by large inguinal hernia that prohibits complete colonoscopy. Patient was anemic and admitted and transfused 2 units of packed red blood cells. He reports some improvement in his general feelings of weakness but admits to dyspnea on exertion. He denies chest pain. Hospital Course Hospital Course: Patient was admitted and transfused 2 units of packed red blood cells with insufficient response so an additional 2 units was needed on the sixth. Patient underwent EGD on the morning of the sixth to evaluate for upper GI bleed. No active bleeding was identified nor any evidence of recent bleeding. EGD was performed by Dr. Alonzo. H&H was monitored further and stabilized. Discussion was had with the patient and his family regarding further work-up for source of GI bleeding. His work-up is complicated by a large inguinal hernia that contains much of his small intestine. Previous attempts at colonoscopy have been unsuccessful. There is also concern over evaluation via capsule endoscopy causing obstruction which would necessitate urgent surgery. Once patient's H&H stabilized patient was discharged home. He will discontinue Xarelto and follow- up in the office for repeat H&H early in the week. 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 (2) Anemia Status: Acute (3) History of atrial fibrillation Status: Acute (4) longterm current use of anticoagulant Status: Acute Discharge Plan - Patient Discharge Instructions ACTIVITY: Continue current activity DIET: continue same diet Patient Instructions: Anemia - Follow up Plan Follow up with: Dio Gould MD [Primary Care Provider] - 10/26/19 1:00 pm Disposition: Home, Self-Long-Term Medications: Home Medications Medication Instructions Recorded Confirmed Type Amlodipine Besylate [Amlodipine 10 mg PO DAILY 09/23/17 10/21/19 History 10mg Tab] Pantoprazole Sodium [Pantoprazole 40 mg PO DAILY 09/23/17 10/21/19 History 20mg Tab] lisinopriL [Lisinopril 40mg Tablet] 40 mg PO DAILY 09/23/17 10/21/19 History Ferrous Sulfate [Iron] 65 mg PO DAILY 03/04/18 10/21/19 History Furosemide [Furosemide 40MG tAB] 40 mg PO BID 03/04/18 10/21/19 History Metoprolol Tartrate 50 mg PO DAILY 03/05/18 10/21/19 History Prescriptions/Medication Reconciliation: Continued lisinopriL [Lisinopril 40mg Tablet] 40 mg PO DAILY Pantoprazole Sodium [Pantoprazole 20mg Tab] 40 mg PO DAILY Furosemide [Furosemide 40MG tAB] 40 mg PO BID Metoprolol Tartrate 50 mg PO DAILY Amlodipine Besylate [Amlodipine 10mg Tab] 10 mg PO DAILY Ferrous Sulfate [Iron] 65 mg PO DAILY Discontinued Rivaroxaban [Xarelto 10mg tablet] 20 mg PO DAILY - Problem Reconciliation Problems Reviewed?: Yes
== END 2019-10-24 15:52 | disposition home or self-care (01) | DRG 812 ==
LOC: ER 17:54 → 2ND 19:36
PROVIDERS: ADMIT Emergency Medicine; ATTEND Family Medicine
CPT/HCPCS: 36415; 71010; 71045; 80048; 80053; 81001; 83605; 84484; 85014; 85018; 85025; 86850; 87040; 87086; 87088; 87186; 87275; 87276; 88305; 88342; 93005; 94761; 96365; 96366; 96367; 99285; J1335; P9016

== ENCOUNTER 2019-11-02 04:31 | Inpatient (IN) ==
[2019-11-02 06:55] LABS: Basophils # 0.1 K/mm3 (0-0.2); Basophils % 0.5 % (0.1-2.0); Eosinophils # 0.1 K/mm3 (0.0-0.4); Hematocrit 30.7 % (42.0-52.0); Hemoglobin 9.5 g/dL (14.1-18.0); Lymphocytes # 0.7 K/mm3 (0.7-4.5); Lymphocytes % 5.1 % (10-50); Mean Corpuscular HGB Conc 30.9 g/dL (31.8-35.4); Mean Corpuscular Volume 87.9 fl (80-94); Mean Platelet Volume 7.3 fl (7.4-10.4); Monocytes # 0.7 K/mm3 (0.1-1.0); Monocytes % 5.4 % (1.7-9.3); Neutrophils # 11.9 K/mm3 (1.8-7.8); Platelet Count 340 K/mm3 (142-424); Red Blood Count 3.49 M/mm3 (4.60-6.20); Red Cell Distribution Width 14.1 % (11.5-17.5); White Blood Count 13.5 K/mm3 (4.8-10.8)
[2019-11-02 07:03] LABS: Albumin Level 2.9 g/dL (3.4-5.0); Albumin/Globulin Ratio 0.7 (1.1-1.8); Anion Gap 10.3 mEq/L (5-15); Bilirubin,Total 0.3 mg/dL (0.2-1.0); Globulin 4.1 gm/dl (1.3-3.2)
[2019-11-02 07:18] LABS: Eosinophils % 1 % (0-3); Hypochromasia 1+; Lymphocytes % 4 % (10-50); Monocytes % 8 % (2-9); Neutrophils % 87 % (42-76); Total Cells Counted 100
--- NOTE | 2019-11-02 07:40 | Emergency Department Note ---
ED Disposition Clinical Impression: JAVIER (acute kidney injury) Shoulder fracture, right Qualifiers: Encounter type: initial encounter Fracture type: closed Qualified Code(s): S42.91XA - Fracture of right shoulder girdle, part unspecified, initial encounter for closed fracture Fall Qualifiers: Encounter type: initial encounter Qualified Code(s): W19.XXXA - Unspecified fall, initial encounter Anemia Qualifiers: Anemia type: unspecified type Qualified Code(s): D64.9 - Anemia, unspecified Disposition: Admitted as Observation Condition on Discharge: Serious Referrals: Dio Gould MD [Primary Care Provider] - - Critical Care Critical Care Time: No Attestation: On 11/02/19, the high probability of a clinically significant, sudden or life threatening deterioration of the following system(s) required my full and direct attention, intervention and personal management. The time I documented below is in addition to time spent performing reported procedures but includes the following listed in this critical care notation. Medical Decision Making - Medical Records Medical records reviewed: Yes: I reviewed the patient's medical records. - Jay Inquiry Pt receiving controlled substance: No Vital Signs: 11/02/19 04:32 11/02/19 07:20 11/02/19 07:31 Temperature 97.7 F Temperature Source Oral Pulse Rate [Right Brachial] 67 65 65 Respiratory Rate 20 18 18 Blood Pressure [Right Arm] 126/53 L 116/51 L 131/44 L Blood Pressure Mean [Right Arm] 77 72 73 Blood Pressure Source [Right Arm] Automatic Cuff Automatic Cuff Automatic Cuff Blood Pressure Position [Right Arm] Sitting Sitting Sitting 02 Sat by Pulse Oximetry 94 L 95 91 L Oxygen Delivery Method Room Air Nasal Cannula Nasal Cannula Oxygen Flow Rate (LPM) 2 2 - Lab Data Lab results reviewed: Yes: I reviewed the patient's lab results. Lab Results 11/02/19 06:19: WBC 13.5 H, RBC 3.49 L, Hgb 9.5 L, Hct 30.7 L, MCV 87.9, MCH 27.2, MCHC 30.9 L, RDW 14.1, Plt Count 340, MPV 7.3 L, Neut % (Auto) 88.0 H, Lymph % (Auto) 5.1 L, [place] % (Auto) 5.4, Eos % (Auto) 1.0, Baso % (Auto) 0.5, Neut # (Auto) 11.9 H, Lymph # (Auto) 0.7, [place] # (Auto) 0.7, Eos # (Auto) 0.1, Baso # (Auto) 0.1, Total Counted 100, Neutrophils % (Manual) 87 H, Lymphocytes % (Manual) 4 L, Monocytes % (Manual) 8, Eosinophils % (Manual) 1, Platelet Estimate Normal, Hypochromasia 1+ 11/02/19 06:19: Sodium 134 L, Potassium 5.3 H, Chloride 97 L, Carbon Dioxide 32, Anion Gap 10.3, BUN 32 H, Creatinine 2.61 H, Estimated Creat Clear 33, Estimated GFR 24 L, Est GFR ( Amer) 29 L, Glucose 143 H, Calcium 8.0 L, Total Bilirubin 0.3, AST 24, ALT 18 L, Alkaline Phosphatase 155 H, Total Protein 7.0, Albumin 2.9 L, Globulin 4.1 H, Albumin/Globulin Ratio 0.7 L Result diagrams: 11/02/19 06:19 11/02/19 06:19 Orders (Tests/Meds): ED MEDICATIONS Discontinued Medications Generic Name Dose Route Start Last Admin Trade Name Freq PRN Reason Stop Dose Admin Morphine Sulfate 2 mg 11/02/19 07:21 11/02/19 07:25 Morphine 2mg/Ml Syringe IV 11/02/19 07:22 2 mg ONCE ONE Administration Ondansetron HCl 4 mg 11/02/19 07:21 11/02/19 07:26 Zofran 4mg/2ml Vial IV 11/02/19 07:22 4 mg ONCE ONE Administration ORDERS Category Date Time Status XR chest AP Stat Exams 11/02/19 04:40 Taken XR elbow RT min 3V Stat Exams 11/02/19 04:57 Taken XR pelvis 1-2V Stat Exams 11/02/19 04:40 Taken XR shoulder RT min 2V Stat Exams 11/02/19 04:40 Taken - Radiology Data #1 Image(s): Chest, Shoulder, Elbow, Pelvis Image Reviewed: Yes I reviewed the patient's radiology image Preliminary Findings: Abnormal (shoulder fx - prob rt rib fx ) - CT Data CT Scan: Head, C-Spine, Chest Time Received: 09:[address] Reviewed: Yes: I have viewed the radiologist's interpretation Preliminary Findings: Abnormal (see report ) - Physician Consults Physician Consulted: fior Reason -: Admission Additional Consult: richie Reason -: Pt condition Fall HPI - General Chief Complaint: Fall Stated Complaint: fall Time Seen by Provider: 11/02/19 05:30 Mode of Arrival: EMS Source of Information: Patient, Relative, EMS Limitations: No Limitations Description of Symptoms (Recalled from ER Triage Doc. by RN): Patient brought in by [facility]. EMS reprots patient was walking into his kitchen when he tripped and fell. Patient denies hitting his head or any loss of consciousness. Patients only complainent is right shoulder pain. - History of Present Illness HPI Narrative: pt with rt shoulder injury after fall this am- trip injury - c/o of rt rib pain also but no abd pain MD complaint: fall Onset (ago): hour(s) Fall from: standing Fall witnessed: yes, by family Place fall occurred: home Loss of consciousness: none Prolonged down time: no Context: tripped/slipped Location of injury - extremities: Right: shoulder Severity: moderate Associated symptoms (after fall): denies - Related Data Home Medications Medication Instructions Recorded Confirmed Amlodipine Besylate [Amlodipine 10 mg PO DAILY 09/23/17 10/26/19 10mg Tab] Pantoprazole Sodium [Pantoprazole 40 mg PO DAILY 09/23/17 10/26/19 20mg Tab] lisinopriL [Lisinopril 40mg Tablet] 40 mg PO DAILY 09/23/17 10/26/19 Ferrous Sulfate [Iron] 65 mg PO DAILY 03/04/18 10/26/19 Furosemide [Furosemide 40MG tAB] 40 mg PO BID 03/04/18 10/26/19 Metoprolol Tartrate 50 mg PO DAILY 03/05/18 10/26/19 Previous Rx's Medication Instructions Recorded Sulfamethoxazole/Trimethoprim 1 each PO BID #14 tab 10/26/19 [Bactrim DS tablet] Allergies Allergy/AdvReac Type Severity Reaction Status Date / Time codeine [CODEINE] Allergy Unknown Verified 11/02/19 05:01 [facility] History - Hepatitis A Screen Drug use history?: No High risk sexual behaviors?: No History of sexually transmitted infection?: No Currently employed?: No Childcare worker?: No Do you have indoor plumbing?: Yes Do you have electricity?: Yes Attestation statement:: This patient has been screened for Hepatitis A risk factors. I have reviewed the patient's past medical history: Yes Medical History: Reports:: Arrhythmia, Atrial Fibrillation, Cancer (skin), Congestive Heart Failure, Hypertension, Palpitations Denies:: Diabetes Mellitus Type 1, Diabetes Mellitus Type 2, Internal Pacemaker, Lung Disease, MRSA, Seizures Other Medical History: Reports: Anemia Laterality Cases: Left: Total Hip Replacement, Bilateral: Other Other Surgeries: Yes: Appendectomy, Colonoscopy, EGD. No: Pacemaker Amputation: No Fractures: Yes - Social History Smoking Status: Former smoker Tobacco Type: cigarettes # Packs/Day (cigarettes): 2 Alcohol Intake: never Alcohol Intake Frequency:: holidays/special occasions only Substance Use Type: denies use Occupational Status: retired Housing: house Household Members: spouse Family Hx:: Anemia, Bleeding Disorder, Diabetes, Heart Attack, Hyperlipidemia, Hypertension, Kidney Disease, Stroke ROS Obtained: Yes All systems reviewed & no additional complaints - Constitutional Constitutional: Denies fever(s) - Eyes Eyes: Denies change in vision - ENT Ears, Nose, Mouth, and Throat: Denies sore throat - Cardiovascular Cardiovascular: Denies chest pain, Denies dyspnea - Respiratory Respiratory: No cough - Gastrointestinal Gastrointestingal: Denies: abdominal pain - Genitourinary Male Genitourinary: Denies hematuria - Musculoskeletal Musculoskeletal: Reports as per HPI, Reports joint pain, Reports joint swelling, Reports limited range of motion - Integumentary/Breasts Skin/Breast: Denies rash - Neurologic Neurologic: Denies focal weakness, Reports frequent falls, Denies seizure-like activity Physical Exam - General General appearance: alert, obese - Head Head exam: normocephalic - Eye Eye exam: Present: PERRL, EOMI - ENT ENT exam: Present: mucous membranes dry - Neck Neck exam: Present: trachea midline - Chest Chest inspection: Present: tenderness - Respiratory Respiratory exam: Present: other (dec bs bilat ) - Cardiovascular Cardiovascular exam: Present: regular rate, systolic murmur, +S4 - Abdominal Exam Abdominal exam: Present: soft - Extremities Exam Extremities exam: Present: pedal edema - Expanded Upper Extremity Exam Right Shoulder exam: Present: tenderness, deformity Neuromotor exam: Normal: wrist extension Neurosensory exam: Normal: radial nerve - Neurological Exam Neurological exam: Present: alert, oriented X3, CN II-XII intact. Absent: motor sensory deficit - Psychiatric Psychiatric exam: Present: normal affect - Skin Skin exam: Absent: rash
--- NOTE | 2019-11-02 10:22 | Pharmacy Consult Notes ---
[facility] Pharmacy VTE Monitoring - Patient Demographics Admission date: 11/02/19 Report Date: 11/02/19 Time: 10:22 Allergies/Adverse Reactions: Patient Allergies codeine [CODEINE] Allergy (Unknown, Verified 11/02/19 05:01) Height: 1.88 m Weight: 106.594 kg Patient Problems: Current Active Problems Anemia (Acute) Shoulder fracture, right (Acute) Fall (Acute) JAVIER (acute kidney injury) (Acute) - VTE Risk Labs: VTE Related Lab Results Hgb 9.5 g/dL (14.1-18.0) L 11/02/19 06:19 Hct 30.7 % (42.0-52.0) L 11/02/19 06:19 Plt Count 340 K/mm3 (142-424) 11/02/19 06:19 BUN 32 mg/dL (7-18) H 11/02/19 06:19 Creatinine 2.61 mg/dL (0.70-1.30) H 11/02/19 06:19 Estimated Creat Clear 33 mL/min (50-200) 11/02/19 06:19 - Prophylaxis VTE Prophylaxis Ordered?: Yes Types of VTE Prophylaxis: TEDS Knee High Location of Applied Device: Bilateral Lower Extremeties
--- NOTE | 2019-11-02 11:52 | Consult Report ---
History of Present Illness Consult date: 11/02/19 Requesting physician: Dio Gould Consult reason: pre-op evaluation Chief complaint: right shoulder pain Additional Medical History:: 1. Atrial fibrillation/flutter, recurrent since 2008 A. History of sotalol therapy starting 2008, reportedly discontinued recently per patient B. History of VALERIANO/electrical cardioversion x3 per family over the last 10 years C. 2020, CHADS-VASC2 score of 4 (HTN, history of CHF, Age) with annual CVA risk of 4% D. Unable to take anticoagulation due to history of recurrent GI bleed/falls with hematomas and need for transfusion, most recent 10/2019 E. Reportedly on amiodarone therapy, 2017, but not in current meds 2019. 2. Hypertension 3. History of diastolic congestive heart failure A. Echo, 2015, normal LVEF with RVSP of 50 4. Large right inguinal hernia 5. Chronic kidney disease, Cr 1.5-2.6 and GFR 24-44, 10/2019 6. History of tobacco use, discontinued 1999, smoked up to 3 packs/day 7. Past surgical history A. Appendectomy B. Left femoral fracture repair, 2009 C. Right eye cataract surgery July 2011 8. Skin cancer, 2019, status post 1 month of chemotherapy 9. Coronary artery calcifications on CT of chest, 2017 and 2019 History of present illness: 79-year-old white male who got up from bed to go to the bathroom this morning and reportedly fell due to either slipping on hardwood or misjudging step in the house and fell on his right shoulder. Patient complained of pain and was subsequently brought into the ER with evaluation showing fracture of the right humerus. Patient denies any chest pain, pressure or tightness prior to the fall. There is no history of loss of consciousness. Patient's helped him up off the floor and the patient's son arrived shortly thereafter to help. Patient was transported by EMS to the ER for further evaluation. Patient's elementary spanish teacher is Dr. Canseco whom he sees regularly about every 6 to 12 months. Patient denies any history of coronary artery disease but does not recall any stress test or cardiac catheterization in the past. He denies a history of myocardial infarction. EKG today shows sinus rhythm with left anterior hemiblock and incomplete left bundle branch block. Recently admitted to the hospital for blood transfusion earlier this month due to hemoglobin of 6. Upper GI was performed without etiology for his anemia. Patient's large right inguinal hernia prevents adequate colonoscopic exam. [facility] History Medical History: Reports:: Arrhythmia, Atrial Fibrillation, Cancer (skin), Congestive Heart Failure, Hypertension, Palpitations Denies:: Diabetes Mellitus Type 1, Diabetes Mellitus Type 2, Internal Pacemaker, Lung Disease, MRSA, Seizures *Have you ever received a pneumonia vaccine?: Yes *Have you received a flu vaccine this season?: Yes Other Medical History: Reports: Anemia, Arthritis, Chemotherapy (off for 2 weeks) Laterality Cases: Left: Total Hip Replacement, Bilateral: Other Other Surgeries: Yes: Appendectomy, Colonoscopy, EGD. No: Pacemaker Amputation: No Fractures: Yes - *Social History Educational Level: Attended High School Smoking Status: Former smoker Tobacco Type: cigarettes # Packs/Day (cigarettes): 1 Smoking End Date: 1999 Alcohol Intake: never Alcohol Intake Frequency:: holidays/special occasions only Substance Use Type: denies use *Occupational Status:: retired Housing: house Household Members: spouse *Travel in the last 8 weeks: None Family Hx:: Diabetes Meds Home Medications Medication Instructions Recorded Confirmed Type Amlodipine Besylate [Amlodipine 10 mg PO DAILY 09/23/17 11/02/19 History 10mg Tab] Pantoprazole Sodium [Pantoprazole 40 mg PO DAILY 09/23/17 11/02/19 History 20mg Tab] lisinopriL [Lisinopril 40mg Tablet] 40 mg PO DAILY 09/23/17 11/02/19 History Ferrous Sulfate [Iron] 65 mg PO DAILY 03/04/18 11/02/19 History Furosemide [Furosemide 40MG tAB] 40 mg PO BID 03/04/18 11/02/19 History Metoprolol Tartrate 50 mg PO DAILY 03/05/18 11/02/19 History Sulfamethoxazole/Trimethoprim 1 each PO BID #14 tab 10/26/19 11/02/19 Rx [Bactrim DS tablet] Allergies Allergy/AdvReac Type Severity Reaction Status Date / Time codeine [CODEINE] Allergy Unknown Verified 11/02/19 05:01 Review of Systems - Review of Systems Review of systems:: pertinent systems reviewed and negative unless documented below - *Cardiovascular Reports leg swelling, Denies chest pain - *Respiratory Reports shortness of breath with activity, Denies cough - *Gastrointestinal Denies loose stools, Denies nausea, Denies vomiting - *Genitourinary Denies blood in urine - *Musculoskeletal Reports joint pain, Reports back pain, Reports muscle cramps - *Neurologic Reports frequent falls, Denies localized weakness, Denies seizure-like activity Exam Vital signs and Labs for Last 24 Hours: Temp Pulse Resp BP Pulse Ox 98.4 F 62 18 106/74 L 89 L 11/02/19 09:53 11/02/19 09:53 11/02/19 09:53 11/02/19 09:53 11/02/19 09:43 Laboratory Results - last 24 hr 11/02/19 06:19: WBC 13.5 H, RBC 3.49 L, Hgb 9.5 L, Hct 30.7 L, MCV 87.9, MCH 27.2, MCHC 30.9 L, RDW 14.1, Plt Count 340, MPV 7.3 L, Neut % (Auto) 88.0 H, Lymph % (Auto) 5.1 L, [place] % (Auto) 5.4, Eos % (Auto) 1.0, Baso % (Auto) 0.5, Neut # (Auto) 11.9 H, Lymph # (Auto) 0.7, [place] # (Auto) 0.7, Eos # (Auto) 0.1, Baso # (Auto) 0.1, Total Counted 100, Neutrophils % (Manual) 87 H, Lymphocytes % (Manual) 4 L, Monocytes % (Manual) 8, Eosinophils % (Manual) 1, Platelet Estimate Normal, Hypochromasia 1+ 11/02/19 06:19: Sodium 134 L, Potassium 5.3 H, Chloride 97 L, Carbon Dioxide 32, Anion Gap 10.3, BUN 32 H, Creatinine 2.61 H, Estimated Creat Clear 33, Estimated GFR 24 L, Est GFR ( Amer) 29 L, Glucose 143 H, Calcium 8.0 L, Total Bilirubin 0.3, AST 24, ALT 18 L, Alkaline Phosphatase 155 H, Total Protein 7.0, Albumin 2.9 L, Globulin 4.1 H, Albumin/Globulin Ratio 0.7 L I & O for Last 24 hours: Intake & Output 10/30/19 10/31/19 11/01/19 11/02/19 11:59 11:59 11:59 11:59 Weight 220 lb 7 oz - *Routine HEENT Exam Head: Present: normocephalic Eye: Present: EOMI, PERRL ENT: Present: mucous membranes moist - *Routine Neck Exam Present: supple, carotid bruit. Absent: JVD - *Routine Respiratory Exam Present: decreased breath sounds, CTA bilaterally. Absent: accessory muscle use, rales, rhonchi, wheezes - *Routine Cardiovascular Exam Present: RRR, murmur. Absent: gallop, rubs - *Routine Abdominal Exam Present: soft. Absent: tenderness, distended, guarding - *Routine Extremities Exam Present: edema. Absent: calf tenderness - *Routine Neurological Exam Present: alert, oriented X3, moving all extremities Assessment and Plan (1) Shoulder fracture, right Current visit: Yes Status: Acute Qualifiers: Encounter type: initial encounter Fracture type: closed Qualified Code(s): S42.91XA - Fracture of right shoulder girdle, part unspecified, initial encounter for closed fracture Category: Medical Code(s): S42.91XA - Fracture of right shoulder girdle, part unspecified, initial encounter for closed fracture (2) HHD (hypertensive heart disease) Current visit: Yes Status: Acute Category: Medical Code(s): I11.9 - Hypertensive heart disease without heart failure (3) Aortic stenosis Current visit: Yes Status: Acute Category: Medical Code(s): I35.0 - Nonrheumatic aortic (valve) stenosis (4) JAVIER (acute kidney injury) Current visit: Yes Status: Acute Category: Medical Code(s): N17.9 - Acute kidney failure, unspecified (5) Anemia Current visit: Yes Status: Acute Qualifiers: Anemia type: unspecified type Qualified Code(s): D64.9 - Anemia, unspecified Category: Medical Code(s): D64.9 - Anemia, unspecified (6) Fall Current visit: Yes Status: Acute Qualifiers: Encounter type: initial encounter Qualified Code(s): W19.XXXA - Unspecified fall, initial encounter Category: Medical Code(s): W19.XXXA - Unspecified fall, initial encounter (7) Cellulitis Current visit: No Status: Acute Qualifiers: Site of cellulitis: extremity Site of cellulitis of extremity: lower extremity Laterality: right Qualified Code(s): L03.115 - Cellulitis of right lower limb Category: Medical Code(s): L03.90 - Cellulitis, unspecified (8) History of atrial fibrillation Current visit: No Status: Acute Category: Medical Code(s): Z86.79 - Personal history of other diseases of the circulatory system - Assessment and plan all Dx Assessment and Plan for all problems:: 1. Pre-op evaluation for right shoulder surgery. Pt denies history of chest pain. Echo shows normal LVEF. Discussed with Dr. Rosenbaum, since the patient seems asymptomatic at this time, no further testing needed. Patient is at an increased but acceptable risk to proceed with surgery tomorrow from a cardiovascular standpoint. 2. History of PAF, currently NSR and not a candidate for anticoagulation due to recurrent anemia and need for blood transfusions. It appears he is on metoprolol from a list that the patient's has but this will be confirmed. Recommend continuing this perioperatively. 3. Aortic sclerosis with stenosis, mild to moderate. 4. Hypertensive heart disease with preserved LVEF. 5. Anemia, recurrent with recent blood transfusion of 4 units. Due to bruising and plan for surgery, would recommend beginning transfusion PRN to keep Hgb >10 to try and prevent cardiac strain/recurrent A. fib/flutter.
--- NOTE | 2019-11-02 16:49 | Consult Report ---
*Admission Date: 11/02/19 *Reason for consult:: R proximal humerus fracture *History of present illness: 79-year-old [id number] gentleman admitted this morning after a fall late last night at home. He got up around 2:30 in the morning to use the bathroom and slipped on the hardwood floor returning to bed. Denies LOC during the fall. He lives at home with his and generally ambulates with a cane. For longer distances he uses a wheelchair or motorized scooter. He has never injured this right shoulder or had surgery on it in the past. He has a history of atrial fibrillation which has been treated with both cardioversion and Xarelto. Xarelto was stopped around a week ago due to significant anemia requiring transfusion. Upper endoscopy was performed that did not identify a source of bleeding. Colonoscopy was not able to be performed due to the presence of an inguinal hernia. He has not reported any bianca blood per rectum but has noted dark stools. He is on iron supplements and has required IV iron in the past. He notes that when he is anemic he goes into A. fib. Denies base line chest pain but some shortness of breath is present with exertion. He has never had surgery on his heart. His medical history is also significant for hypertension, chronic kidney disease, diastolic congestive heart failure, and coronary artery disease. He has been recently treated with chemotherapy pills for a skin cancer, but these have been discontinued due to an adverse reaction. He has undergone hip replacement, appendectomy, EGD. He is a former smoker and quit in the year 1999, denies frequent alcohol intake or any illicit substance use. Review of Systems - Review of Systems Review of systems:: pertinent systems reviewed and negative unless documented below - *Neurologic Reports frequent falls, Denies localized weakness, Denies seizure-like activity [facility] History I have reviewed the patient's past medical history: Yes Medical History: Reports:: Arrhythmia, Atrial Fibrillation, Cancer (skin), Congestive Heart Failure, Hypertension, Palpitations Denies:: Diabetes Mellitus Type 1, Diabetes Mellitus Type 2, Internal P acemaker, Lung Disease, MRSA, Seizures *Have you ever received a pneumonia vaccine?: Yes *Have you received a flu vaccine this season?: Yes Other Medical History: Reports: Anemia, Arthritis, Chemotherapy (off for 2 weeks) Laterality Cases: Left: Total Hip Replacement, Bilateral: Other Other Surgeries: Yes: Appendectomy, Colonoscopy, EGD. No: Pacemaker Amputation: No Fractures: Yes - *Social History Educational Level: Attended High School Smoking Status: Former smoker Tobacco Type: cigarettes # Packs/Day (cigarettes): 1 Smoking End Date: 1999 Alcohol Intake: never Alcohol Intake Frequency:: holidays/special occasions only Substance Use Type: denies use *Occupational Status:: retired Housing: house Household Members: spouse *Travel in the last 8 weeks: None Family Hx:: Diabetes Meds Home Medications Medication Instructions Recorded Confirmed Type Amlodipine Besylate [Amlodipine 10 mg PO DAILY 09/23/17 11/02/19 History 10mg Tab] Pantoprazole Sodium [Pantoprazole 40 mg PO DAILY 09/23/17 11/02/19 History 20mg Tab] lisinopriL [Lisinopril 40mg Tablet] 40 mg PO DAILY 09/23/17 11/02/19 History Ferrous Sulfate [Iron] 65 mg PO DAILY 03/04/18 11/02/19 History Furosemide [Furosemide 40MG tAB] 40 mg PO BID 03/04/18 11/02/19 History Metoprolol Tartrate 50 mg PO DAILY 03/05/18 11/02/19 History Sulfamethoxazole/Trimethoprim 1 each PO BID #14 tab 10/26/19 11/02/19 Rx [Bactrim DS tablet] Allergies Allergy/AdvReac Type Severity Reaction Status Date / Time codeine [CODEINE] Allergy Unknown Verified 11/02/19 05:01 Exam Vital signs and Labs for Last 24 Hours: Temp Pulse Resp BP Pulse Ox 98.1 F 68 20 106/46 L 90 L 11/02/19 16:21 11/02/19 16:21 11/02/19 16:21 11/02/19 16:21 11/02/19 16:21 Laboratory Results - last 24 hr 11/02/19 06:19: WBC 13.5 H, RBC 3.49 L, Hgb 9.5 L, Hct 30.7 L, MCV 87.9, MCH 27.2, MCHC 30.9 L, RDW 14.1, Plt Count 340, MPV 7.3 L, Neut % (Auto) 88.0 H, Lymph % (Auto) 5.1 L, [place] % (Auto) 5.4, Eos % (Auto) 1.0, Baso % (Auto) 0.5, Neut # (Auto) 11.9 H, Lymph # (Auto) 0.7, [place] # (Auto) 0.7, Eos # (Auto) 0.1, Baso # (Auto) 0.1, Total Counted 100, Neutrophils % (Manual) 87 H, Lymphocytes % (Manual) 4 L, Monocytes % (Manual) 8, Eosinophils % (Manual) 1, Platelet Estimate Normal, Hypochromasia 1+ 11/02/19 06:19: Sodium 134 L, Potassium 5.3 H, Chloride 97 L, Carbon Dioxide 32, Anion Gap 10.3, BUN 32 H, Creatinine 2.61 H, Estimated Creat Clear 33, Estimated GFR 24 L, Est GFR ( Amer) 29 L, Glucose 143 H, Calcium 8.0 L, Total Bilirubin 0.3, AST 24, ALT 18 L, Alkaline Phosphatase 155 H, Total Protein 7.0, Albumin 2.9 L, Globulin 4.1 H, Albumin/Globulin Ratio 0.7 L 11/02/19 12:20: Blood Type O Positive, Antibody Screen Negative, Crossmatch (AHG) See Detail I & O for Last 24 hours: Intake & Output 10/31/19 11/01/19 11/02/19 11/03/19 11:59 11:59 11:59 11:59 Intake Total 0 / 0 Balance 0 / 0 Weight 220 lb 7 oz - Constitutional no acute distress - *Routine HEENT Exam Head: Present: normocephalic Eye: Present: EOMI ENT: Present: mucous membranes moist - *Routine Respiratory Exam Present: CTA bilaterally - *Routine Cardiovascular Exam Present: RRR - *Routine Abdominal Exam Present: soft. Absent: tenderness - *Routine Extremities Exam Comments: R shoulder mild ecchymosis anteriorly unable to lift R arm at shoulder due to pain FROM R elbow/wrist/forearm/hand; no tenderness AIN/PIN/ulnar nerves motor intact RUE SILT distally m/r/u distributions RUE palpable radial pulse R wrist, BCR all digits - *Routine Skin Exam Present: intact, warm, ecchymosis - *Routine Neurological Exam Present: alert, oriented X3, normal reflexes, moving all extremities, normal tone, hearing grossly intact, normal speech. Absent: sensory deficit, motor deficit, altered mental status - Routine Psychiatric Exam Present: normal affect Results - Labs Result Diagrams: 11/02/19 06:19 11/02/19 06:19 Labs: Abnormal lab results 11/02/19 11/02/19 11/02/19 Range/Units 06:19 06:19 12:20 WBC 13.5 H (4.8-10.8) K/mm3 RBC 3.49 L (4.60-6.20) M/mm3 Hgb 9.5 L (14.1-18.0) g/dL Hct 30.7 L (42.0-52.0) % MCHC 30.9 L (31.8-35.4) g/dL MPV 7.3 L (7.4-10.4) fl Neut % (Auto) 88.0 H (37.0-80.0) % Lymph % (Auto) 5.1 L (10-50) % Neut # (Auto) 11.9 H (1.8-7.8) K/mm3 Neutrophils % (Manual) 87 H (42-76) % Lymphocytes % (Manual) 4 L (10-50) % Sodium 134 L (137-145) mmol/L Potassium 5.3 H (3.5-5.1) mmoL/L Chloride 97 L (98-107) mmol/L BUN 32 H (7-18) mg/dL Creatinine 2.61 H (0.70-1.30) mg/dL Estimated GFR 24 L (>60) ml/min Est GFR ( Amer) 29 L (>60) ML/MIN Glucose 143 H (74-106) mg/dL Calcium 8.0 L (8.5-10.1) mg/dL ALT 18 L (21-72) U/L Alkaline Phosphatase 155 H (46-116) U/L Albumin 2.9 L (3.4-5.0) g/dL Globulin 4.1 H (1.3-3.2) gm/dl Albumin/Globulin Ratio 0.7 L (1.1-1.8) Crossmatch (AHG) See Detail H & H 11/02/19 Range/Units 06:19 Hgb 9.5 L (14.1-18.0) g/dL Hct 30.7 L (42.0-52.0) % All other labs normal. - Diagnostic results Shoulder x-ray: image reviewed (comminuted fracture R proximal humerus at surgical neck) Assessment and Plan (1) Shoulder fracture, right Current visit: Yes Status: Acute Qualifiers: Encounter type: initial encounter Fracture type: closed Qualified Code(s): S42.91XA - Fracture of right shoulder girdle, part unspecified, initial encounter for closed fracture Category: Medical Code(s): S42.91XA - Fracture of right shoulder girdle, part unspecified, initial encounter for closed fracture (2) HHD (hypertensive heart disease) Current visit: Yes Status: Acute Category: Medical Code(s): I11.9 - Hypertensive heart disease without heart failure (3) Aortic stenosis Current visit: Yes Status: Acute Category: Medical Code(s): I35.0 - Nonrheumatic aortic (valve) stenosis (4) JAVIER (acute kidney injury) Current visit: Yes Status: Acute Category: Medical Code(s): N17.9 - Acute kidney failure, unspecified (5) Anemia Current visit: Yes Status: Acute Qualifiers: Anemia type: unspecified type Qualified Code(s): D64.9 - Anemia, unspecified Category: Medical Code(s): D64.9 - Anemia, unspecified (6) Fall Current visit: Yes Status: Acute Qualifiers: Encounter type: initial encounter Qualified Code(s): W19.XXXA - Unspecified fall, initial encounter Category: Medical Code(s): W19.XXXA - Unspecified fall, initial encounter (7) Cellulitis Current visit: No Status: Acute Qualifiers: Site of cellulitis: extremity Site of cellulitis of extremity: lower extremity Laterality: right Qualified Code(s): L03.115 - Cellulitis of right lower limb Category: Medical Code(s): L03.90 - Cellulitis, unspecified (8) History of atrial fibrillation Current visit: No Status: Acute Category: Medical Code(s): Z86.79 - Personal history of other diseases of the circulatory system - Assessment and plan all Dx Assessment and Plan for all problems:: 79yo M with R proximal humerus fracture; comminuted fracture of surgical neck I discussed the natural history of proximal humerus fractures with the patient and his , and without surgical intervention I feel he will have chronic pain and decreased function with this arm. Additionally, he will have persistent stiffness; however, this may be the case no matter what treatment is chosen. In order to increase his functional capability with this shoulder and give him the best chance for good outcome, I recommend ORIF if healthy enough to withstand the procedure. He has been seen by the cardiology service and cleared for surgery; awaiting medical clearance by Dr. Gould. I discussed the treatment options with the patient and his and they have elected to undergo surgery at this time. I discussed the risks, benefits and alternatives to surgery with the patient, including but not limited to: bleeding, infection, nonunion/malunion, hardware cut out/failure, avascular necrosis, need for future revision surgery or conversion to arthroplasty. I also discussed the possibility that this cannot be fixed tomorrow, in which case I would convert to a reverse shoulder arthroplasty. This will be consented with the patient as well. -- NPO after midnight -- transfuse premptively now; the patient's Hgb was 9.5 on admission and I expect this will continue to trend downward in the next 2-3 days regardless of treatment, with additional blood loss during surgery -- will discuss with anesthesia -- prophy antibiotics club concierge to OR: claudia rodriguez
--- NOTE | 2019-11-02 17:14 | History & Physical Report ---
*Admission Date: 11/02/19 *Chief complaint: Right shoulder pain *History of present illness: 79-year-old male presented to the emergency department after a fall at home around 2 AM this morning. Patient states he was coming out of the bathroom and his right foot slipped out from under him. This led to a fall where the patient landed directly on the right shoulder which is resulted in a surgical neck fracture of the right humerus. Patient was evaluated for further trauma in the emergency department. There were no other fractures identified. Patient was admitted with orthopedic consultation. Patient has a history of paroxysmal atrial fibrillation and recently was taken off all anticoagulants due to GI bleed. Due to a large inguinal hernia patient is not capable of undergoing appropriate bowel prep and colonoscopy. He denies chest pain, shortness of breath at rest, syncope, palpitations. During his recent hospitalizations patient did report some shortness of breath with exertion but this was relieved once his anemia was corrected. [facility] History I have reviewed the patient's past medical history: Yes Medical History: Reports:: Atrial Fibrillation (Bruxism), Cancer (skin), Congestive Heart Failure (Diastolic), Hypertension Denies:: Diabetes Mellitus Type 1, Diabetes Mellitus Type 2, Internal Pacemaker, Lung Disease, MRSA, Seizures *Have you ever received a pneumonia vaccine?: Yes *Have you received a flu vaccine this season?: Yes Other Medical History: Reports: Anemia, Arthritis, Chemotherapy (off for 2 weeks) Laterality Cases: Left: Total Hip Replacement, Bilateral: Other Other Surgeries: Yes: Appendectomy, Colonoscopy, EGD. No: Pacemaker Amputation: No Fractures: Yes - *Social History Educational Level: Attended High School Smoking Status: Former smoker Tobacco Type: cigarettes # Packs/Day (cigarettes): 1 Smoking End Date: 1999 Alcohol Intake: never Alcohol Intake Frequency:: holidays/special occasions only Substance Use Type: denies use *Occupational Status:: retired Housing: house Household Members: spouse *Travel in the last 8 weeks: None Family Hx:: Diabetes Review of Systems - Constitutional Reports weakness, Denies body ache(s), Denies chills, Denies fever(s), Denies headache(s) - *Cardiovascular Reports shortness of breath with activity, Reports leg swelling (Chronic), Denies chest pain, Denies chest pain at rest, Denies chest pain with activity - *Respiratory Reports shortness of breath with activity (Resolved after transfusion), Denies change in phlegm color, Denies chest congestion, Denies cough, Denies excessive phlegm production - *Gastrointestinal Denies abdominal pain - *Genitourinary Denies blood in urine, Denies testicle pain, Denies urinary urgency - *Musculoskeletal Reports abnormal walking, Reports joint pain - *Neurologic Reports frequent falls, Denies localized weakness, Denies seizure-like activity Meds Home Medications Medication Instructions Recorded Confirmed Type Amlodipine Besylate [Amlodipine 10 mg PO DAILY 09/23/17 11/02/19 History 10mg Tab] Pantoprazole Sodium [Pantoprazole 40 mg PO DAILY 09/23/17 11/02/19 History 20mg Tab] lisinopriL [Lisinopril 40mg Tablet] 40 mg PO DAILY 09/23/17 11/02/19 History Ferrous Sulfate [Iron] 65 mg PO DAILY 03/04/18 11/02/19 History Furosemide [Furosemide 40MG tAB] 40 mg PO BID 03/04/18 11/02/19 History Metoprolol Tartrate 50 mg PO DAILY 03/05/18 11/02/19 History Sulfamethoxazole/Trimethoprim 1 each PO BID #14 tab 10/26/19 11/02/19 Rx [Bactrim DS tablet] Allergies Allergy/AdvReac Type Severity Reaction Status Date / Time codeine [CODEINE] Allergy Unknown Verified 11/02/19 05:01 Exam Vital signs and Labs for Last 24 Hours: Temp Pulse Resp BP Pulse Ox 98.1 F 68 20 106/46 L 90 L 11/02/19 16:21 11/02/19 16:21 11/02/19 16:21 11/02/19 16:21 11/02/19 16:21 Laboratory Results - last 24 hr 11/02/19 06:19: WBC 13.5 H, RBC 3.49 L, Hgb 9.5 L, Hct 30.7 L, MCV 87.9, MCH 27.2, MCHC 30.9 L, RDW 14.1, Plt Count 340, MPV 7.3 L, Neut % (Auto) 88.0 H, Lymph % (Auto) 5.1 L, Borden % (Auto) 5.4, Eos % (Auto) 1.0, Baso % (Auto) 0.5, Neut # (Auto) 11.9 H, Lymph # (Auto) 0.7, Borden # (Auto) 0.7, Eos # (Auto) 0.1, Baso # (Auto) 0.1, Total Counted 100, Neutrophils % (Manual) 87 H, Lymphocytes % (Manual) 4 L, Monocytes % (Manual) 8, Eosinophils % (Manual) 1, Platelet Estimate Normal, Hypochromasia 1+ 11/02/19 06:19: Sodium 134 L, Potassium 5.3 H, Chloride 97 L, Carbon Dioxide 32, Anion Gap 10.3, BUN 32 H, Creatinine 2.61 H, Estimated Creat Clear 33, Estimated GFR 24 L, Est GFR ( Amer) 29 L, Glucose 143 H, Calcium 8.0 L, Total Bilirubin 0.3, AST 24, ALT 18 L, Alkaline Phosphatase 155 H, Total Protein 7.0, Albumin 2.9 L, Globulin 4.1 H, Albumin/Globulin Ratio 0.7 L 11/02/19 12:20: Blood Type O Positive, Antibody Screen Negative, Crossmatch (AHG) See Detail I & O for Last 24 hours: Intake & Output 10/31/19 11/01/19 11/02/19 11/03/19 11:59 11:59 11:59 11:59 Intake Total 0 / 0 Balance 0 / 0 Weight 220 lb 7 oz Narrative: Patient is seated in bed with sling on the right arm. He is shirtless. Scalp is without lesions. Pupils are reactive. Oropharynx is moist. Neck has no lymphadenopathy and is supple. Lungs are clear with diminished breath sounds at the bases and poor inspiratory effort. Heart has a regular rate and rhythm. Abdomen is soft, nontender, nondistended. Patient has a large right inguinal hernia which contains small intestine. Extremities have 2+ edema of the lower legs into the ankles with dull red discoloration of this shins. Patient has significant ecchymosis of the right upper extremity around his fracture site and extending towards the elbow. Neurologically the patient is oriented. He has no sensory deficits of the upper or lower extremities. Motor function is affected by his fracture in the right shoulder Assessment and Plan (1) Shoulder fracture, right Current visit: Yes Status: Acute Qualifiers: Encounter type: initial encounter Fracture type: closed Qualified Code(s): S42.91XA - Fracture of right shoulder girdle, part unspecified, initial encounter for closed fracture Category: Medical Code(s): S42.91XA - Fracture of right shoulder girdle, part unspecified, initial encounter for closed fracture (2) HHD (hypertensive heart disease) Current visit: Yes Status: Acute Category: Medical Code(s): I11.9 - Hype rtensive heart disease without heart failure (3) Aortic stenosis Current visit: Yes Status: Acute Category: Medical Code(s): I35.0 - Nonrheumatic aortic (valve) stenosis (4) JAVIER (acute kidney injury) Current visit: Yes Status: Acute Category: Medical Code(s): N17.9 - Acute kidney failure, unspecified (5) Anemia Current visit: Yes Status: Acute Qualifiers: Anemia type: unspecified type Qualified Code(s): D64.9 - Anemia, uns pecified Category: Medical Code(s): D64.9 - Anemia, unspecified (6) Fall Current visit: Yes Status: Acute Qualifiers: Encounter type: initial encounter Qualified Code(s): W19.XXXA - Unspecified fall, initial encounter Category: Medical Code(s): W19.XXXA - Unspecified fall, initial encounter (7) Cellulitis Current visit: No Status: Acute Qualifiers: Site of cellulitis: extremity Site of cellulitis of extremity: lower extremity Laterality: right Qualified Code(s): L03.115 - Cellulitis of right lower limb Category: Medical Code(s): L03.90 - Cellulitis, unspecified (8) History of atrial fibrillation Current visit: No Status: Acute Category: Medical Code(s): Z86.79 - Personal history of other diseases of the circulatory system - Assessment and plan all Dx Assessment and Plan for all problems:: 1. Patient is scheduled for surgery tomorrow and at this time surgery may proceed as planned 2. Repeat renal function tests in the morning. I suspect patient has some acute kidney injury from his use of Bactrim for his cellulitis 3. Patient is being transfused 1 unit of packed red blood cells at this time. Goal will be to keep his hemoglobin around 10 4. Patient will be monitored closely for signs of fluid overload. Appreciate cardiology services consultation and evaluation of this patient 5. I have already discussed alf for this patient. He has had 2 falls in in the last week. This 1 is resulted in injury. After surgery patient will have rehab evaluation.
[2019-11-02 19:12] LABS: Hematocrit 29.6 % (42.0-52.0); Hemoglobin 9.2 g/dL (14.1-18.0)
[2019-11-02 21:59] LABS: Basophils % 0.5 % (0.1-2.0); Eosinophils # 0.1 K/mm3 (0.0-0.4); Eosinophils % 0.9 % (0.1-12.0); Hematocrit 31.2 % (42.0-52.0); Hemoglobin 9.4 g/dL (14.1-18.0); Lymphocytes # 0.7 K/mm3 (0.7-4.5); Lymphocytes % 7.8 % (10-50); Mean Corpuscular Volume 91.7 fl (80-94); Mean Platelet Volume 8.1 fl (7.4-10.4); Monocytes # 0.9 K/mm3 (0.1-1.0); Monocytes % 9.6 % (1.7-9.3); Neutrophils # 7.2 K/mm3 (1.8-7.8); Neutrophils % 81.2 % (37.0-80.0); Platelet Count 309 K/mm3 (142-424); Red Blood Count 3.41 M/mm3 (4.60-6.20); Red Cell Distribution Width 14.5 % (11.5-17.5); White Blood Count 8.9 K/mm3 (4.8-10.8)
[2019-11-02 22:01] LABS: Calcium 7.8 mg/dL (8.5-10.1)
[2019-11-03 07:01] LABS: Basophils % 0.3 % (0.1-2.0); Eosinophils # 0.3 K/mm3 (0.0-0.4); Eosinophils % 3.2 % (0.1-12.0); Hematocrit 30.5 % (42.0-52.0); Hemoglobin 9.4 g/dL (14.1-18.0); Lymphocytes # 0.7 K/mm3 (0.7-4.5); Lymphocytes % 8.1 % (10-50); Mean Corpuscular HGB Conc 30.7 g/dL (31.8-35.4); Mean Corpuscular Volume 90.6 fl (80-94); Mean Platelet Volume 7.6 fl (7.4-10.4); Monocytes # 0.9 K/mm3 (0.1-1.0); Neutrophils # 6.8 K/mm3 (1.8-7.8); Neutrophils % 78.4 % (37.0-80.0); Platelet Count 280 K/mm3 (142-424); Red Blood Count 3.37 M/mm3 (4.60-6.20); Red Cell Distribution Width 14.6 % (11.5-17.5); White Blood Count 8.7 K/mm3 (4.8-10.8)
[2019-11-03 07:08] LABS: Anion Gap 10.7 mEq/L (5-15); Calcium 7.4 mg/dL (8.5-10.1)
[2019-11-03 07:16] LABS: INR 1.02 (0.9-1.1); Prothrombin Time 10.6 seconds (9.4-11.8)
--- NOTE | 2019-11-03 07:39 | Progress Note ---
Internal Medicine - PN: Subj *Date: 11/03/19 *Time: 07:37 Interval history: Patient himself has no complaints this morning. Overnight his blood pressure dropped which required a liter fluid bolus. Blood pressures are currently in the low 100s. He also developed some wheezing according to nursing notes and responded to a single DuoNeb. This morning the patient denies shortness of breath at present. Nursing staff did report low urine output Exam Vital signs and Labs for Last 24 Hours: Temp Pulse Resp BP Pulse Ox 98.1 F 67 18 107/49 L 91 L 11/03/19 04:00 11/03/19 04:00 11/03/19 04:00 11/03/19 04:00 11/03/19 04:00 Laboratory Results - last 24 hr 11/02/19 12:20: Blood Type O Positive, Antibody Screen Negative, Crossmatch (AHG) See Detail 11/02/19 18:54: Hgb 9.2 L, Hct 29.6 L 11/02/19 21:48: WBC 8.9 D, RBC 3.41 L, Hgb 9.4 L, Hct 31.2 L, MCV 91.7, MCH 27.5, MCHC 30.0 L, RDW 14.5, Plt Count 309, MPV 8.1, Neut % (Auto) 81.2 H, Lymph % (Auto) 7.8 L, Hardeman % (Auto) 9.6 H, Eos % (Auto) 0.9, Baso % (Auto) 0.5, Neut # (Auto) 7.2, Lymph # (Auto) 0.7, Hardeman # (Auto) 0.9, Eos # (Auto) 0.1, Baso # (Auto) 0.0 11/02/19 21:48: Sodium 134 L, Potassium 6.0 H, Chloride 99, Carbon Dioxide 33 H, Anion Gap 8.0, BUN 39 H, Creatinine 3.27 H D, Estimated Creat Clear 25, Estimated GFR 18 L*, Est GFR ( Amer) 22 L D, Glucose 159 H, Calcium 7.8 L 11/03/19 06:43: WBC 8.7, RBC 3.37 L, Hgb 9.4 L, Hct 30.5 L, MCV 90.6, MCH 27.8, MCHC 30.7 L, RDW 14.6, Plt Count 280, MPV 7.6, Neut % (Auto) 78.4, Lymph % (Auto) 8.1 L, Hardeman % (Auto) 10.0 H, Eos % (Auto) 3.2, Baso % (Auto) 0.3, Neut # (Auto) 6.8, Lymph # (Auto) 0.7, Hardeman # (Auto) 0.9, Eos # (Auto) 0.3, Baso # (Auto) 0.0 11/03/19 06:43: Sodium 131 L, Potassium 5.7 H, Chloride 96 L, Carbon Dioxide 30, Anion Gap 10.7, BUN 39 H, Creatinine 3.27 H, Estimated Creat Clear 26, Estimated GFR 18 L*, Est GFR ( Amer) 22 L, Glucose 115 H D, Calcium 7.4 L I & O for Last 24 hours: Intake & Output 10/31/19 11/01/19 11/02/19 11/03/19 11:59 11:59 11:59 11:59 Intake Total 1770 / 1770 Output Total 200 / 200 Balance 1570 / 1570 Weight 220 lb 7 oz 229 lb Narrative: Patient does not appear to be in any distress. Lungs have a faint end expiratory wheeze. Heart has a regular rate and rhythm abdomen is soft. Right arm remains in a sling Assessment and Plan (1) Shoulder fracture, right Current visit: Yes Status: Acute Qualifiers: Encounter type: initial encounter Fracture type: closed Qualified Code(s): S42.91XA - Fracture of right shoulder girdle, part unspecified, initial encounter for closed fracture Category: Medical Code(s): S42.91XA - Fracture of right shoulder girdle, part unspecified, initial encounter for closed fracture (2) HHD (hypertensive heart disease) Current visit: Yes Status: Acute Category: Medical Code(s): I11.9 - Hypertensive heart disease without heart failure (3) Aortic stenosis Current visit: Yes Status: Acute Category: Medical Code(s): I35.0 - Nonrheumatic aortic (valve) stenosis (4) JAVIER (acute kidney injury) Current visit: Yes Status: Acute Category: Medical Code(s): N17.9 - Acute kidney failure, unspecified (5) Anemia Current visit: Yes Status: Acute Qualifiers: Anemia type: unspecified type Qualified Code(s): D64.9 - Anemia, unspecified Category: Medical Code(s): D64.9 - Anemia, unspecified (6) Fall Current visit: Yes Status: Acute Qualifiers: Encounter type: initial encounter Qualified Code(s): W19.XXXA - Unspecified fall, initial encounter Category: Medical Code(s): W19.XXXA - Unspecified fall, initial encounter (7) Cellulitis Current visit: No Status: Acute Qualifiers: Site of cellulitis: extremity Site of cellulitis of extremity: lower extremity Laterality: right Qualified Code(s): L03.115 - Cellulitis of right lower limb Category: Medical Code(s): L03.90 - Cellulitis, unspecified (8) History of atrial fibrillation Current visit: No Status: Acute Category: Medical Code(s): Z86.79 - Personal history of other diseases of the circulatory system - Assessment and plan all Dx Assessment and Plan for all problems:: Patient's acute kidney injury has worsened compared to admission and his blood pressure has decreased. I am going to hold his amlodipine today. He will remain on Lopressor for rate control. I recommend postponing surgery until patient's blood pressures are more stable. He may need additional blood as well. During previous hospitalizations patient has become fluid overloaded due to his diastolic dysfunction. I do not suspect he would respond to diuretics well at this point because of his acute kidney injury. Continue IV fluid hydration and holding medications. Repeat BMP daily
--- NOTE | 2019-11-03 07:55 | Progress Note ---
Subjective Date: 11/03/19 Time: 07:52 Principal diagnosis: Humerus fracture Interval history: 79-year-old white male in bed in no acute distress. Denies any chest pain, pressure or tightness. Patient noted to have hypotension overnight with discontinuation of Norvasc t hereafter. Also noted to have elevated potassium level which has been treated and is trending down. Patient's renal function noted to have elevated yesterday and has been started on IV fluids. Surgery has been postponed for now. Exam Vital signs and Labs for Last 24 Hours: Temp Pulse Resp BP Pulse Ox 98.1 F 67 18 107/49 L 91 L 11/03/19 04:00 11/03/19 04:00 11/03/19 04:00 11/03/19 04:00 11/03/19 04:00 Laboratory Results - last 24 hr 11/02/19 12:20: Blood Type O Positive, Antibody Screen Negative, Crossmatch (AHG) See Detail 11/02/19 18:54: Hgb 9.2 L, Hct 29.6 L 11/02/19 21:48: WBC 8.9 D, RBC 3.41 L, Hgb 9.4 L, Hct 31.2 L, MCV 91.7, MCH 27.5, MCHC 30.0 L, RDW 14.5, Plt Count 309, MPV 8.1, Neut % (Auto) 81.2 H, Lymph % (Auto) 7.8 L, Power % (Auto) 9.6 H, Eos % (Auto) 0.9, Baso % (Auto) 0.5, Neut # (Auto) 7.2, Lymph # (Auto) 0.7, Power # (Auto) 0.9, Eos # (Auto) 0.1, Baso # (Auto) 0.0 11/02/19 21:48: Sodium 134 L, Potassium 6.0 H, Chloride 99, Carbon Dioxide 33 H, Anion Gap 8.0, BUN 39 H, Creatinine 3.27 H D, Estimated Creat Clear 25, Estimated GFR 18 L*, Est GFR ( Amer) 22 L D, Glucose 159 H, Calcium 7.8 L 11/03/19 06:43: WBC 8.7, RBC 3.37 L, Hgb 9.4 L, Hct 30.5 L, MCV 90.6, MCH 27.8, MCHC 30.7 L, RDW 14.6, Plt Count 280, MPV 7.6, Neut % (Auto) 78.4, Lymph % (Auto) 8.1 L, Power % (Auto) 10.0 H, Eos % (Auto) 3.2, Baso % (Auto) 0.3, Neut # (Auto) 6.8, Lymph # (Auto) 0.7, Power # (Auto) 0.9, Eos # (Auto) 0.3, Baso # (Auto) 0.0 11/03/19 06:43: Sodium 131 L, Potassium 5.7 H, Chloride 96 L, Carbon Dioxide 30, Anion Gap 10.7, BUN 39 H, Creatinine 3.27 H, Estimated Creat Clear 26, Estimated GFR 18 L*, Est GFR ( Amer) 22 L, Glucose 115 H D, Calcium 7.4 L I & O for Last 24 hours: Intake & Output 10/31/19 11/01/19 11/02/19 11/03/19 11:59 11:59 11:59 11:59 Intake Total 1770 / 1770 Output Total 200 / 200 Balance 1570 / 1570 Weight 220 lb 7 oz 229 lb - *Routine Respiratory Exam Present: CTA bilaterally. Absent: accessory muscle use, rales, rhonchi, wheezes - *Routine Cardiovascular Exam Present: RRR. Absent: murmur, gallop, rubs - *Routine Extremities Exam Present: edema. Absent: calf tenderness - *Routine Neurological Exam Present: alert, oriented X3, moving all extremities Progress Note: A&P (1) Shoulder fracture, right Status: Acute Current Visit: Yes (2) HHD (hypertensive heart disease) Status: Acute Current Visit: Yes (3) Aortic stenosis Status: Acute Current Visit: Yes (4) JAVIER (acute kidney injury) Status: Acute Current Visit: Yes (5) Anemia Status: Acute Current Visit: Yes (6) Fall Status: Acute Current Visit: Yes (7) Cellulitis Status: Acute Current Visit: No (8) History of atrial fibrillation Status: Acute Current Visit: No (9) Hyperkalemia Status: Acute Current Visit: Yes (10) Chronic kidney disease Status: Acute Current Visit: Yes Assessment and Plan for All Diagnoses:: 1. Right humerus fracture, surgery postponed at this time 2. Hyperkalemia, improving 3. Chronic kidney disease, acute on chronic, worse yesterday but is improving with IV fluids 4. Aortic stenosis, moderate, no further treatment at this time. 5. History of paroxysmal atrial fibrillation, currently in sinus rhythm on metoprolol therapy. Patient has an elevated CHADS score but is high risk for recurrent bleed therefore no anticoagulation recommended 6. History of hypertension, currently patient has low blood pressure. Amlodipine has been stopped. Metoprolol continued for control of paroxysmal atrial fibrillation.
[2019-11-03 14:39] LABS: Hematocrit 30.8 % (42.0-52.0); Hemoglobin 9.7 g/dL (14.1-18.0)
--- NOTE | 2019-11-03 14:53 | Progress Note ---
Subjective Date: 11/03/19 Time: 15:00 Principal diagnosis: R proximal humerus fracture Interval history: Surgery has been postponed due to worsening medical status of the patient. UOP was low overnight and creatinine increased to 3.27 this morning. He has reportedly developed wheezing, though the patient denies SOA currently. Remains on O2 via NC and has had nosebleeds this afternoon. Repeat H/H this afternoon shows Hgb 9.7. Has been in and out of atrial fibrillation today per his nurse, but rate has remained between 80-110. PN: Obj Ex Vital signs: Temp Pulse Resp BP Pulse Ox 98.1 F 67 20 105/44 L 90 L 11/03/19 12:07 11/03/19 12:07 11/03/19 12:07 11/03/19 12:07 11/03/19 12:07 - Constitutional no acute distress - Routine HEENT Exam Head: Present: normocephalic Eye: Present: EOMI ENT: Present: mucous membranes moist - Routine Respiratory Exam Absent: respiratory distress - Routine Cardiovascular Exam Present: RRR - Routine Extremities Exam Comments: R shoulder mild ecchymosis anteriorly unable to lift R arm at shoulder due to pain FROM R elbow/wrist/forearm/hand; no tenderness AIN/PIN/ulnar nerves motor intact RUE SILT distally m/r/u distributions RUE palpable radial pulse R wrist, BCR all digits - Routine Skin Exam Present: intact, warm, ecchymosis. Absent: wounds - Routine Neurological Exam Present: alert, oriented X3, moving all extremities, normal tone, vision grossly intact, hearing grossly intact. Absent: sensory deficit, motor deficit, altered mental status Progress Note: A&P (1) Shoulder fracture, right Status: Acute Current Visit: Yes (2) HHD (hypertensive heart disease) Status: Acute Current Visit: Yes (3) Aortic stenosis Status: Acute Current Visit: Yes (4) JAVIER (acute kidney injury) Status: Acute Current Visit: Yes (5) Anemia Status: Acute Current Visit: Yes (6) Fall Status: Acute Current Visit: Yes (7) Cellulitis Status: Acute Current Visit: No (8) History of atrial fibrillation Status: Acute Current Visit: No (9) Hyperkalemia Status: Acute Current Visit: Yes (10) Chronic kidney disease Status: Acute Current Visit: Yes Assessment and Plan for All Diagnoses:: 79yo M with R proximal humerus fracture; DOI 11/02/19 -- continue sling, NWB RUE -- ice pack R shoulder PRN -- continue medical management per Dr. Gould; should his medical condition improve in the next 24 hours I can proceed with ORIF 11/05/19. Non-operative treatment is still a viable option and this was discussed with the patient and his family today. Should we proceed non-operatively I would keep him in a sling x3 weeks, then mobilize with PT. If he heals the fracture but has persistent pain, may perform arthroplasty at a later date as long as medical condition improves. -- will continue to follow closely
--- NOTE | 2019-11-03 20:41 | Cardiology Report ---
APPROVED REPORT EXAM: Comprehensive 2D, Doppler, and color-flow Echocardiogram Rubber Process Hand: Montserrat Mayes RT(R) Ht: 6 ft 2 in Wt: 220lbs BSA: 2.26 BP: 133/44 mmHg Indications: Murmur, ex smoker, Palpitations, edema, HTN, family hx HD, CHF, hx AFIB, aortic stenosis, PHTN, right humeral fracture, patient flat on back and in great pain throughout exam. 2D Dimensions LVOT 2.12 cm (M/F) 1.5-2.5 M-Mode Dimensions RVDd 1.28 cm (0.9-2.6)LVDd 6.03 cm (3.5-5.7) LVDs 4.82 cm (3.5-5.7)IVSd 1.18 cm (0.6-1.1) PWd 0.93 cm (0.6-1.1)EF (Teich) 40.40% FS 20.10% EDV (Teich) 182.10 mL ESV (Teich) 108.60 mL LV Diastology E/A Ratio 0.75 Aortic Valve LVOT Max 120.00 (70-110 cm/s)LVOT VTI 29.23 cm Mitral Valve MV A Velocity 69.00 (40-130 cm/s) Left Ventricle Left atrium is moderately enlarged, left ventricle is normal size, mild concentric left ventricular hypertrophy, visually estimated ejection fraction 55% with no regional wall motion abnormality, endocardial surfaces are poorly visualized. Grade 1 diastolic dysfunction seen without tissue Doppler evidence of raise left atrial pressure. Right Ventricle Right atrium and right ventricle is moderately enlarged with normal contractility. Aortic Valve Aortic valve is thickened and calcified, leaflet continue to display mobility, the mean gradient across aortic valve is 10.3 mmHg. Represents mild aortic stenosis, there is no significant aortic insufficiency. Mitral Valve Mitral valve is grossly normal, there is mild mitral regurgitation. Tricuspid Valve Tricuspid valve is grossly normal, there is mild tricuspid regurgitation. Tricuspid regurgitation jet velocity is inadequate for calculation of the right ventricular systolic pressure. Pulmonic Valve Pulmonic valve is poorly visualized. Great Vessels Aortic root is normal size. Pericardium No significant pericardial effusion noted. Conclusion 1. Biatrial enlargement, normal left ventricular size, mild concentric left ventricular hypertrophy, visually estimated ejection fraction 50% with no regional wall motion abnormality, endocardial sounds are very poorly visualized. Grade 1 diastolic dysfunction seen without tissue Doppler evidence of raise left atrial pressure. 2. Moderately enlarged right ventricle with normal contractility. 3. Thickened and calcified aortic valve with mean gradient across valve of 10.3 mmHg presents mild aortic stenosis, there is no significant aortic insufficiency. 4. No significant pericardial effusion noted. 5. Mild mitral and tricuspid regurgitation. Electronically signed by : Huan Spain, 11/03/2019 20:39:49
[2019-11-04 06:44] LABS: Basophils # 0.1 K/mm3 (0-0.2); Basophils % 0.7 % (0.1-2.0); Eosinophils # 0.3 K/mm3 (0.0-0.4); Eosinophils % 2.9 % (0.1-12.0); Hematocrit 30.8 % (42.0-52.0); Hemoglobin 9.1 g/dL (14.1-18.0); Lymphocytes # 0.8 K/mm3 (0.7-4.5); Lymphocytes % 8.3 % (10-50); Mean Corpuscular HGB Conc 29.5 g/dL (31.8-35.4); Mean Corpuscular Volume 93.4 fl (80-94); Mean Platelet Volume 7.5 fl (7.4-10.4); Monocytes # 0.9 K/mm3 (0.1-1.0); Monocytes % 9.8 % (1.7-9.3); Neutrophils # 7.1 K/mm3 (1.8-7.8); Neutrophils % 78.4 % (37.0-80.0); Platelet Count 277 K/mm3 (142-424); Red Cell Distribution Width 14.6 % (11.5-17.5); White Blood Count 9.1 K/mm3 (4.8-10.8)
[2019-11-04 07:12] LABS: Anion Gap 12.8 mEq/L (5-15); Calcium 7.8 mg/dl (8.4-10.2)
--- NOTE | 2019-11-04 07:58 | Progress Note ---
Internal Medicine - PN: Subj *Date: 11/04/19 *Time: 07:55 Interval history: Patient himself has no specific complaints this morning. Family reports patient appears restless and there have been increased episodes of confusion. Patient believed he was in [facility]. 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 O2 sats have remained in the high 80s to low 90s with supplemental oxygen via nasal cannula at 2 to 2-1/2 L/min. I discontinued patient's IV fluids yesterday evening when on repeat lung exam he had rales anteriorly and posteriorly consistent with fluid overload. Exam Vital signs and Labs for Last 24 Hours: Temp Pulse Resp BP Pulse Ox 98.4 F 83 20 129/53 L 90 L 11/04/19 04:00 11/04/19 04:00 11/04/19 04:00 11/04/19 04:00 11/04/19 04:00 Laboratory Results - last 24 hr 11/03/19 06:43: PT 10.6, INR 1.02 11/03/19 13:46: Hgb 9.7 L, Hct 30.8 L 11/04/19 05:47: WBC 9.1, RBC 3.30 L, Hgb 9.1 L, Hct 30.8 L, MCV 93.4, MCH 27.5, MCHC 29.5 L, RDW 14.6, Plt Count 277, MPV 7.5, Neut % (Auto) 78.4, Lymph % (Auto) 8.3 L, [place] % (Auto) 9.8 H, Eos % (Auto) 2.9, Baso % (Auto) 0.7, Neut # (Auto) 7.1, Lymph # (Auto) 0.8, [place] # (Auto) 0.9, Eos # (Auto) 0.3, Baso # (Auto) 0.1 11/04/19 05:47: Sodium 130 L, Potassium 5.8 H, Chloride 91 L, Carbon Dioxide 32 H, Anion Gap 12.8, BUN 45 H, Creatinine 3.20 H, Estimated Creat Clear 27, Estimated GFR 19 L*, Est GFR ( Amer) 23 L, Glucose 105 H, Calcium 7.8 L I & O for Last 24 hours: Intake & Output 11/01/19 11/02/19 11/03/1911/04/20 11:59 11:59 11:59 11:59 Intake Total 2009 360 / 360 Output Total 200 / 200 400 / 400 Balance 1810 / 1810 -40 / -40 Weight 220 lb 7 oz 229 lb 231 lb 2 oz Narrative: Patient is reclined in bed with sling in place supporting the right arm. Nasal cannula is in place. He does not show any signs of respiratory distress. Lung exam reveals poor inspiratory effort but lungs are clear anteriorly today than they were yesterday. There are rales at the bases but less prominent this morning than yesterday. BMP and CBC were reviewed Assessment and Plan (1) Shoulder fracture, right Current visit: Yes Status: Acute Qualifiers: Encounter type: initial encounter Fracture type: closed Qualified Code(s): S42.91XA - Fracture of right shoulder girdle, part unspecified, initial encounter for closed fracture Category: Medical Code(s): S42.91XA - Fracture of right shoulder girdle, part unspecified, initial encounter for closed fracture (2) HHD (hypertensive heart disease) Current visit: Yes Status: Acute Category: Medical Code(s): I11.9 - Hypertensive heart disease without heart failure (3) Aortic stenosis Current visit: Yes Status: Acute Category: Medical Code(s): I35.0 - Nonrheumatic aortic (valve) stenosis (4) JAVIER (acute kidney injury) Current visit: Yes Status: Acute Category: Medical Code(s): N17.9 - Acute kidney failure, unspecified (5) Anemia Current visit: Yes Status: Acute Qualifiers: Anemia type: unspecified type Qualified Code(s): D64.9 - Anemia, unspecified Category: Medical Code(s): D64.9 - Anemia, unspecified (6) Fall Current visit: Yes Status: Acute Qualifiers: Encounter type: initial encounter Qualified Code(s): W19.XXXA - Unspecified fall, initial encounter Category: Medical Code(s): W19.XXXA - Unspecified fall, initial encounter (7) Cellulitis Current visit: No Status: Acute Qualifiers: Site of cellulitis: extremity Site of cellulitis of extremity: lower extremity Laterality: right Qualified Code(s): L03.115 - Cellulitis of right lower limb Category: Medical Code(s): L03.90 - Cellulitis, unspecified (8) History of atrial fibrillation Current visit: No Status: Acute Category: Medical Code(s): Z86.79 - Personal history of other diseases of the circulatory system (9) Hyperkalemia Current visit: Yes Status: Acute Category: Medical Code(s): E87.5 - Hyperkalemia (10) Chronic kidney disease Current visit: Yes Status: Acute Category: Medical Code(s): N18.9 - Chronic kidney disease, unspecified - Assessment and plan all Dx Assessment and Plan for all problems:: 1. Patient's renal function has not improved as much as desired. I will repeat his BMP this afternoon and for the time being avoid any diuretics to avoid further kidney injury. Patient's condition is guarded due to his fluid balance. I have spoken with nursing staff about increasing supplemental oxygen as needed as patient has no history of lung disease. 2. Hemoglobin dropped slightly and will be repeated again this afternoon 3. Clinically patient is better this morning than yesterday evening. He will be reassessed again this afternoon. 4. Continue to hold amlodipine but administer metoprolol for rate control 5. Surgery in the near future seems unlikely
--- NOTE | 2019-11-04 09:11 | Progress Note ---
Subjective Date: 11/04/19 Time: 09:11 Principal diagnosis: R proximal humerus fracture Interval history: This is an 79-year-old white male who was admitted for a proximal right humerus fracture. His surgery was postponed yesterday for worsening renal function. He did get hypotensive as well and his Norvasc has been stopped. The patient's potassium level was elevated. This is improved but still remains a little on the high side today. He was treated with IV fluids but now is exhibiting signs of fluid overload so fluids have been stopped. His renal function still remains elevated this morning. His surgery for fixation of his proximal right humerus fracture has been postponed due to his renal function. He denies any chest pain or pressure. He denies any shortness of breath. He does have some edema noted to his right upper extremity. He denies any fever, chills, nausea, vomiting, diarrhea, PND or orthopnea. His does report that he had a lot of confusion through the night. She states that he was unable to really sleep last night as well. This morning his IV fluids have been stopped. There are plans to recheck his renal function this afternoon. Given his fluid overload we do recommend he be treated with a one-time dose of Lasix. However his primary care provider has wanted to hold off on this for now due to his renal function being elevated. If this has improved this afternoon we do recommend treating him with a one-time dose of Lasix for his fluid overload. Exam Vital signs and Labs for Last 24 Hours: Temp Pulse Resp BP Pulse Ox 98.1 F 82 20 118/44 L 93 L 11/04/19 08:00 11/04/19 08:00 11/04/19 08:00 11/04/19 08:00 11/04/19 08:00 Laboratory Results - last 24 hr 11/03/19 13:46: Hgb 9.7 L, Hct 30.8 L 11/04/19 05:47: WBC 9.1, RBC 3.30 L, Hgb 9.1 L, Hct 30.8 L, MCV 93.4, MCH 27.5, MCHC 29.5 L, RDW 14.6, Plt Count 277, MPV 7.5, Neut % (Auto) 78.4, Lymph % (Auto) 8.3 L, [place] % (Auto) 9.8 H, Eos % (Auto) 2.9, Baso % (Auto) 0.7, Neut # (Auto) 7.1, Lymph # (Auto) 0.8, [place] # (Auto) 0.9, Eos # (Auto) 0.3, Baso # (Auto) 0.1 11/04/19 05:47: Sodium 130 L, Potassium 5.8 H, Chloride 91 L, Carbon Dioxide 32 H, Anion Gap 12.8, BUN 45 H, Creatinine 3.20 H, Estimated Creat Clear 27, Estimated GFR 19 L*, Est GFR ( Amer) 23 L, Glucose 105 H, Calcium 7.8 L I & O for Last 24 hours: Intake & Output 11/01/19 11/02/19 11/03/19 11/04/19 23:59 23:59 23:59 23:59 Intake Total 0 / 0 2370 / 2370 Output Total 200 / 400 400 / 400 Balance 0 / 0 2170 / 1970 -400 / -400 Weight 220 lb 7 oz 229 lb 231 lb 2 oz Narrative: Echo shows: 1. Biatrial enlargement, normal left ventricular size, mild concentric left ventricular hypertrophy, visually estimated ejection fraction 50% with no regional wall motion abnormality, endocardial sounds are very poorly visualized. Grade 1 diastolic dysfunction seen without tissue Doppler evidence of raise left atrial pressure. 2. Moderately enlarged right ventricle with normal contractility. 3. Thickened and calcified aortic valve with mean gradient across valve of 10.3 mmHg presents mild aortic stenosis, there is no significant aortic insufficiency. 4. No significant pericardial effusion noted. 5. Mild mitral and tricuspid regurgitation. - Constitutional no acute distress, average body habitus - *Routine HEENT Exam Head: Present: normocephalic, atraumatic Eye: Present: EOMI, PERRL ENT: Present: mucous membranes moist - *Routine Neck Exam Present: supple, full ROM, normal carotid upstroke. Absent: JVD, carotid bruit, lymphadenopathy - *Routine Respiratory Exam Present: decreased breath sounds, rales (Bilateral lower lobes) - *Routine Cardiovascular Exam Present: RRR, Normal S1, Normal S2. Absent: murmur - *Routine Abdominal Exam Present: soft, normoactive bowel sounds. Absent: tenderness, distended - *Routine Extremities Exam Present: full ROM (Except right upper extremity), pulses intact, normal capillary refill. Absent: cyanosis, clubbing, edema - *Routine Skin Exam Present: intact, warm. Absent: erythema, rash Comments: Profuse purple bruising noted to the right upper extremity - *Routine Neurological Exam Present: alert Oriented to self. Patient is confused to place and time but he does reorient easily. - Detailed Eye Exam Eyelids: Left normal inspection Progress Note: A&P (1) History of atrial fibrillation Status: Acute Current Visit: No (2) Shoulder fracture, right Status: Acute Current Visit: Yes (3) HHD (hypertensive heart disease) Status: Acute Current Visit: Yes (4) Aortic stenosis Status: Acute Current Visit: Yes (5) JAVIER (acute kidney injury) Status: Acute Current Visit: Yes (6) Anemia Status: Acute Current Visit: Yes (7) Fall Status: Acute Current Visit: Yes (8) Cellulitis Status: Acute Current Visit: No (9) Hyperkalemia Status: Acute Current Visit: Yes (10) Chronic kidney disease Status: Acute Current Visit: Yes Assessment and Plan for All Diagnoses:: Plan: 1. Patient has a proximal right humerus fracture from a fall. His surgery has been postponed. Will defer this to orthopedics. 2. The patient does have a history of paroxysmal atrial fibrillation. He remains in sinus rhythm at this time. He is on metoprolol for rate control. 3. The patient's chads vasc score is high but anticoagulation is not recommended given his high risk for falls and his history of recurrent falls here recently. 4. His blood pressure is well controlled today. 5. His LDL goal is less than 100. 6. The patient's renal function still remains elevated this morning. It is slightly improved from yesterday however. There are plans to recheck his renal function later this afternoon. 7. IV fluids have been stopped due to fluid overload. We would recommend a one-time dose of Lasix. However his primary care provider wants to hold off on this due to his elevated renal function. If his renal function has improved on recheck this afternoon, we do recommend a one-time dose of Lasix to try to get some of the fluid off of him. We will leave this up to his primary care provider. 8. The patient does have mild aortic stenosis which is stable. 9. The patient is hyperkalemic. It has improved since yesterday. We will continue to follow this as well this afternoon on recheck of his blood work. 10. He is acceptable risk from a cardiac standpoint for repair of his right humerus fracture once his renal function has improved and his primary care provider cleared him for surgery. 11. Further recommendations will be made pending the patient's response to treatment. Thank you for the opportunity to help participate in the care of this patient.
--- NOTE | 2019-11-04 09:39 | Progress Note ---
Subjective Date: 11/04/19 Time: 09:00 Principal diagnosis: R proximal humerus fracture Interval history: The patient is slightly confused this morning, renal function has not improved, and he is showing signs of worsening CHF/fluid overload. Bruising R shoulder has worsened. PN: Obj Ex Vital signs: Temp Pulse Resp BP Pulse Ox 98.1 F 82 20 118/44 L 90 L 11/04/19 08:00 11/04/19 08:00 11/04/19 08:00 11/04/19 08:00 11/04/19 08:00 - Routine Extremities Exam Comments: R shoulder mild ecchymosis anteriorly/superiorly, extends down arm to forearm unable to lift R arm at shoulder due to pain FROM R elbow/wrist/forearm/hand; no tenderness AIN/PIN/ulnar nerves motor intact RUE SILT distally m/r/u distributions RUE palpable radial pulse R wrist, BCR all digits Progress Note: A&P (1) History of atrial fibrillation Status: Acute Current Visit: No (2) Shoulder fracture, right Status: Acute Current Visit: Yes (3) HHD (hypertensive heart disease) Status: Acute Current Visit: Yes (4) Aortic stenosis Status: Acute Current Visit: Yes (5) JAVIER (acute kidney injury) Status: Acute Current Visit: Yes (6) Anemia Status: Acute Current Visit: Yes (7) Fall Status: Acute Current Visit: Yes (8) Cellulitis Status: Acute Current Visit: No (9) Hyperkalemia Status: Acute Current Visit: Yes (10) Chronic kidney disease Status: Acute Current Visit: Yes Assessment and Plan for All Diagnoses:: 79yo M with R proximal humerus fracture; DOI 11/02/19 -- continue slingSONG -- ice pack R shoulder PRN -- surgery postponed indefinitely due to worsening medical status; kidneys are not improving, CHF may be worsening, and he is becoming more confused. Will continue to follow while in house, but anticipate non-op treatment for the shoulder. Recommend sling x3 weeks, then mobilization as tolerated with physical therapy.
[2019-11-04 11:17] LABS: ABG Base Excess 4.7 mmol/L (-2.4-2.3); ABG HCO3 31.8 mmhg (22.0-26.0); ABG Oxygen Saturation 87 % (90-100); ABG PH 7.26 mmol/L (7.35-7.45); ABG PO2 56.9 mmhg (80-100)
[2019-11-04 11:19] LABS: Allen's Test ACCEPTABLE; Oxygen 40% %
[2019-11-04 11:20] LABS: ABG PCO2 72.3 mmhg (35.0-45.0)
--- NOTE | 2019-11-04 14:11 | Progress Note ---
Internal Medicine - PN: Subj *Date: 11/04/19 *Time: 14:09 Interval history: Around midmorning patient's O2 sats began to decrease and he became more confused and combative. ABG was ordered which showed both hypercapnia and hypoxemia and patient was placed on BiPAP. Since initiation of BiPAP beginning at noon patient appears to be resting more comfortably and O2 sats have risen. Family is at bedside. Exam Vital signs and Labs for Last 24 Hours: Temp Pulse Resp BP Pulse Ox 98.1 F 80 20 118/44 L 90 L 11/04/19 08:00 11/04/19 12:00 11/04/19 08:00 11/04/19 08:00 11/04/19 08:00 Laboratory Results - last 24 hr 11/02/19 12:20: Crossmatch (AHG) See Detail 11/03/19 13:46: Hgb 9.7 L, Hct 30.8 L 11/04/19 05:47: WBC 9.1, RBC 3.30 L, Hgb 9.1 L, Hct 30.8 L, MCV 93.4, MCH 27.5, MCHC 29.5 L, RDW 14.6, Plt Count 277, MPV 7.5, Neut % (Auto) 78.4, Lymph % (Auto) 8.3 L, [place] % (Auto) 9.8 H, Eos % (Auto) 2.9, Baso % (Auto) 0.7, Neut # (Auto) 7.1, Lymph # (Auto) 0.8, [place] # (Auto) 0.9, Eos # (Auto) 0.3, Baso # (Auto) 0.1 11/04/19 05:47: Sodium 130 L, Potassium 5.8 H, Chloride 91 L, Carbon Dioxide 32 H, Anion Gap 12.8, BUN 45 H, Creatinine 3.20 H, Estimated Creat Clear 27, Estimated GFR 19 L*, Est GFR ( Amer) 23 L, Glucose 105 H, Calcium 7.8 L 11/04/19 10:57: Specimen Source L radial, O2 % 40%, ABG pH 7.26 L, ABG pCO2 72.3 H, ABG pO2 56.9 L, ABG HCO3 31.8 H, ABG Total CO2 34.0 H, ABG O2 Saturation 87 L*, ABG Base Excess 4.7 H, Gregory Test Acceptable I & O for Last 24 hours: Intake & Output 11/02/19 11/03/19 11/04/19 11/05/19 11:59 11:59 11:59 11:59 Intake Total 2009 600 / 600 Output Total 200 / 200 400 / 400 Balance 1810 / 1810 200 / 200 Weight 220 lb 7 oz 229 lb 231 lb 2 oz Narrative: Patient is laying in bed with BiPAP on. Even laying in bed his posture is rather slouched with his head and neck tilted to the right. The heart has a regular rate and rhythm. The lung exam reveals improved aeration with faint basilar rales heard in the left lung. Assessment and Plan (1) Acute respiratory failure with hypoxia and hypercapnia Current visit: Yes Status: Acute Category: Medical Code(s): J96.01 - Acute respiratory failure with hypoxia; J96.02 - Acute respiratory failure with hypercapnia (2) History of atrial fibrillation Current visit: No Status: Acute Category: Medical Code(s): Z86.79 - Personal history of other diseases of the circulatory system (3) Shoulder fracture, right Current visit: Yes Status: Acute Qualifiers: Encounter type: initial encounter Fracture type: closed Qualified Code(s): S42.91XA - Fracture of right shoulder girdle, part unspecified, initial encounter for closed fracture Category: Medical Code(s): S42.91XA - Fracture of right shoulder girdle, part unspecified, initial encounter for closed fracture (4) HHD (hypertensive heart disease) Current visit: Yes Status: Acute Category: Medical Code(s): I11.9 - Hypertensive heart disease without heart failure (5) Aortic stenosis Current visit: Yes Status: Acute Category: Medical Code(s): I35.0 - Nonrheumatic aortic (valve) stenosis (6) JAVIER (acute kidney injury) Current visit: Yes Status: Acute Category: Medical Code(s): N17.9 - Acute kidney failure, unspecified (7) Anemia Current visit: Yes Status: Acute Qualifiers: Anemia type: unspecified type Qualified Code(s): D64.9 - Anemia, unspecified Category: Medical Code(s): D64.9 - Anemia, unspecified (8) Fall Current visit: Yes Status: Acute Qualifiers: Encounter type: initial encounter Qualified Code(s): W19.XXXA - Unspecified fall, initial encounter Category: Medical Code(s): W19.XXXA - Unspecified fall, initial encounter (9) Cellulitis Current visit: No Status: Acute Qualifiers: Site of cellulitis: extremity Site of cellulitis of extremity: lower extremity Laterality: right Qualified Code(s): L03.115 - Cellulitis of right lower limb Category: Medical Code(s): L03.90 - Cellulitis, unspecified (10) Hyperkalemia Current visit: Yes Status: Acute Category: Medical Code(s): E87.5 - Hyperkalemia (11) Chronic kidney disease Current visit: Yes Status: Acute Category: Medical Code(s): N18.9 - Chronic kidney disease, unspecified - Assessment and plan all Dx Assessment and Plan for all problems:: 1. Patient seems to be responding positively to BiPAP. ABG will be checked around 3 PM along with CBC, BMP. When respiratory failure develop patient was given 80 mg of Lasix IV and has had mild response
[2019-11-04 15:14] LABS: Hematocrit 29.5 % (42.0-52.0); Hemoglobin 8.9 g/dL (14.1-18.0)
[2019-11-04 15:20] LABS: ABG Base Excess 4.9 mmol/L (-2.4-2.3); ABG HCO3 31.9 mmhg (22.0-26.0); ABG Oxygen Saturation 96 % (90-100); ABG PH 7.27 mmol/L (7.35-7.45); ABG PO2 91.4 mmhg (80-100)
[2019-11-04 15:23] LABS: Allen's Test ACCEPTABLE; Oxygen 45 %; Tidal Volume 18/6
[2019-11-04 15:24] LABS: ABG PCO2 71.3 mmhg (35.0-45.0)
[2019-11-04 15:30] LABS: Anion Gap 10.8 mEq/L (5-15); Calcium 7.7 mg/dl (8.4-10.2)
[2019-11-04 17:07] LABS: ABG Base Excess 2.3 mmol/L (-2.4-2.3); ABG HCO3 28.6 mmhg (22.0-26.0); ABG Oxygen Saturation 94 % (90-100); ABG PO2 72.6 mmhg (80-100); ABG TCO2 30.4 mmhg (23-27)
[2019-11-04 17:09] LABS: Oxygen 50% %; PEEP 5; Tidal Volume 450
[2019-11-04 17:10] LABS: Allen's Test Patient Unable
[2019-11-04 17:11] LABS: ABG PCO2 59.1 mmhg (35.0-45.0)
[2019-11-04 18:01] LABS: Microscopic, Urine URINE MICROSCOPIC (MICROSCOPIC)
[2019-11-04 18:03] LABS: Appearance,Urine CLEAR (Clear); Bilirubin,Urine Negative (Negative); Blood, Urine TRACE-L (Negative); Color,Urine YELLOW (Yellow); Glucose,Urine (UA) Negative (Negative); Ketones,Urine Negative (Negative); Leukocyte Esterase,Urine Negative (Negative); PH,Urine 5.5 (5.0-8.5); Protein,Urine Negative (Negative); Specific Gravity, Urine >= 1.030 (1.005-1.030); Urobilinogen,Urine 0.2 EU/dl (0.2)
[2019-11-04 18:38] LABS: Bacteria,Urine Trace /lpf; Squamous Epithelial Cell,Urine Occasional #/hpf (0-5); WBC,Urine Occasional #/hpf (0-3)
[2019-11-04 21:13] LABS: Hematocrit 29.7 % (42.0-52.0); Hemoglobin 9.1 g/dL (14.1-18.0)
[2019-11-05 06:19] LABS: ABG Base Excess 3.6 mmol/L (-2.4-2.3); ABG HCO3 29.1 mmhg (22.0-26.0); ABG Oxygen Saturation 80 % (90-100); ABG PH 7.36 mmol/L (7.35-7.45); ABG TCO2 30.7 mmhg (23-27)
[2019-11-05 06:22] LABS: Allen's Test Non Applicable; Oxygen 45 %; PEEP 5; Tidal Volume 450
[2019-11-05 06:23] LABS: ABG PCO2 53.3 mmhg (35.0-45.0); ABG PO2 43.6 mmhg (80-100)
[2019-11-05 06:44] LABS: Basophils % 0.6 % (0.1-2.0); Eosinophils # 0.3 K/mm3 (0.0-0.4); Eosinophils % 4.6 % (0.1-12.0); Hematocrit 29.8 % (42.0-52.0); Hemoglobin 8.8 g/dL (14.1-18.0); Lymphocytes # 0.6 K/mm3 (0.7-4.5); Lymphocytes % 9.2 % (10-50); Mean Corpuscular HGB Conc 29.7 g/dL (31.8-35.4); Mean Corpuscular Volume 92.1 fl (80-94); Monocytes # 0.7 K/mm3 (0.1-1.0); Monocytes % 9.5 % (1.7-9.3); Neutrophils # 5.3 K/mm3 (1.8-7.8); Neutrophils % 76.1 % (37.0-80.0); Platelet Count 245 K/mm3 (142-424); Red Blood Count 3.23 M/mm3 (4.60-6.20); White Blood Count 6.9 K/mm3 (4.8-10.8)
[2019-11-05 06:51] LABS: Anion Gap 7.9 mEq/L (5-15); Calcium 7.3 mg/dl (8.4-10.2)
--- NOTE | 2019-11-05 07:14 | Progress Note ---
Internal Medicine - PN: Subj *Date: 11/05/19 *Time: 07:11 Interval history: Patient was intubated yesterday afternoon after BiPAP failed to correct his respiratory acidosis, despite improving his oxygenation. Patient has tolerated intubation and and is only lightly sedated this morning. He was transfused an additional unit of packed red blood cells overnight due to a mild decrease in his hemoglobin. As of this morning hypercapnia has improved since intubation although oxygenation has decreased but there is suspicion that his most current blood gas is possibly a venous gas as blood gas was obtained from the brachial area. Inspiratory volumes are low at around 200 mL's. Patient is lightly sedated and stirs with calling of his name or tactile stimulus but does not open his eyes. Exam Vital signs and Labs for Last 24 Hours: Temp Pulse Resp BP Pulse Ox 99.4 F 66 22 106/48 L 93 L 11/05/19 06:00 11/05/19 06:00 11/05/19 06:00 11/05/19 06:00 11/05/19 06:00 Laboratory Results - last 24 hr 11/02/19 12:20: Blood Type O Positive, Antibody Screen Negative, Crossmatch (AHG) See Detail 11/04/19 05:47: Sodium 130 L, Potassium 5.8 H, Chloride 91 L, Carbon Dioxide 32 H, Anion Gap 12.8, BUN 45 H, Creatinine 3.20 H, Estimated Creat Clear 27, Estimated GFR 19 L*, Est GFR ( Amer) 23 L, Glucose 105 H, Calcium 7.8 L 11/04/19 10:57: Specimen Source L radial, O2 % 40%, ABG pH 7.26 L, ABG pCO2 72.3 H, ABG pO2 56.9 L, ABG HCO3 31.8 H, ABG Total CO2 34.0 H, ABG O2 Saturation 87 L*, ABG Base Excess 4.7 H, Gregory Test Acceptable 11/04/19 15:00: Specimen Source L radial, O2 % 45, ABG pH 7.27 L, ABG pCO2 71.3 H, ABG pO2 91.4, ABG HCO3 31.9 H, ABG Total CO2 34.0 H, ABG O2 Saturation 96, ABG Base Excess 4.9 H, Gregory Test Acceptable, Tidal Volume 18/6 11/04/19 15:03: Hgb 8.9 L, Hct 29.5 L 11/04/19 15:03: Sodium 130 L, Potassium 5.8 H, Chloride 93 L, Carbon Dioxide 32 H, Anion Gap 10.8, BUN 46 H, Creatinine 3.10 H, Estimated Creat Clear 28, Estimated GFR 19 L*, Est GFR ( Amer) 24 L, Glucose 105 H, Calcium 7.7 L 11/04/19 17:05: O2 % 50%, ABG pH 7.30 L, ABG pCO2 59.1 H, ABG pO2 72.6 L, ABG HCO3 28.6 H, ABG Total CO2 30.4 H, ABG O2 Saturation 94, ABG Base Excess 2.3, Gregory Test Patient unable, Vent Rate 16, Tidal Volume 450, PEEP 5 11/04/19 17:45: Urine Color Yellow, Urine Appearance Clear, Urine pH 5.5, Ur Specific [place] >= 1.030, Urine Protein Negative, Urine Glucose (UA) Negative, Urine Ketones Negative, Urine Blood Trace-l, Urine Nitrate Negative, Urine Bilirubin Negative, Urine Urobilinogen 0.2, Ur Leukocyte Esterase Negative, Urine WBC Occasional, Ur Squamous Epith Cells Occasional, Urine Bacteria Trace 11/04/19 21:10: Hgb 9.1 L, Hct 29.7 L 11/05/19 05:37: WBC 6.9, RBC 3.23 L, Hgb 8.8 L, Hct 29.8 L, MCV 92.1, MCH 27.4, MCHC 29.7 L, RDW 15.0, Plt Count 245, MPV 8.0, Neut % (Auto) 76.1, Lymph % (Auto) 9.2 L, [place] % (Auto) 9.5 H, Eos % (Auto) 4.6, Baso % (Auto) 0.6, Neut # (Auto) 5.3, Lymph # (Auto) 0.6 L, [place] # (Auto) 0.7, Eos # (Auto) 0.3, Baso # (Auto) 0.0 11/05/19 05:37: Sodium 130 L, Potassium 4.9, Chloride 96 L, Carbon Dioxide 31 H, Anion Gap 7.9, BUN 40 H, Creatinine 2.30 H D, Estimated Creat Clear 38, Estimated GFR 27 L, Est GFR ( Amer) 33 L D, Glucose 90, Calcium 7.3 L 11/05/19 06:00: Specimen Source Left brachial, O2 % 45, ABG pH 7.36, ABG pCO2 53.3 H, ABG pO2 43.6 L, ABG HCO3 29.1 H, ABG Total CO2 30.7 H, ABG O2 Saturation 80 L*, ABG Base Excess 3.6 H, Gregory Test Non applicable, Vent Rate 16, Tidal Volume 450, PEEP 5 I & O for Last 24 hours: Intake & Output 11/02/19 11/03/19 11/04/19 11/05/19 11:59 11:59 11:59 11:59 Intake Total 2009 600 / 600 2151 / 2151 Output Total 200 / 200 675 / 675 1248 / 1248 Balance 1810 / 1810 -75 / -75 903 / 903 Weight 220 lb 7 oz 229 lb 231 lb 2 oz 235 lb 4 oz Microbiology Reports for the Last 24 Hours: Microbiology 11/04/19 16:30 Sputum - Endotracheal Tube Aspirate Gram Stain - Final Narrative: Patient resting comfortably. He does not open his eyes but does start her with tactile or vocal stimulus. ET tube is in place. Neck has no jugular venous distention. Lungs have faint anterior rales best heard on the left. Heart has a regular rate and rhythm. Abdomen is soft and nontender with surgical scar in the right mid abdomen. Extremities are warm to the touch with 1-2+ edema. Hemoglobin of 8.8 this morning. Blood gas shows improvement in respiratory acidosis with persistent hypoxemia. Creatinine has decreased slightly compared to yesterday. Potassium remains mildly elevated. Chest x-ray has been interpreted as showing bibasilar infiltrates versus atelectasis and atelectasis is favored as patient has not had any infectious symptoms. There are also findings of vascular congestion Assessment and Plan (1) Acute respiratory failure with hypoxia and hypercapnia Current visit: Yes Status: Acute Category: Medical Code(s): J96.01 - Acute respiratory failure with hypoxia; J96.02 - Acute respiratory failure with hypercapnia Patient will remain intubated for now. Increase tidal volume to 500 mL's. Patient will remain lightly sedated and staff will work with patient today to attempt weaning. I am going to transfuse patient additional 2 units of packed red blood cells which should improve oxygen carrying capacity (2) History of atrial fibrillation Current visit: No Status: Acute Category: Medical Code(s): Z86.79 - Personal history of other diseases of the circulatory system Maintain telemetry monitoring. Patient has been in sinus rhythm while intubated (3) Shoulder fracture, right Current visit: Yes Status: Acute Qualifiers: Encounter type: initial encounter Fracture type: closed Qualified Code(s): S42.91XA - Fracture of right shoulder girdle, part unspecified, initial encounter for closed fracture Category: Medical Code(s): S42.91XA - Fracture of right shoulder girdle, part unspecified, initial encounter for closed fracture Orthopedics is consulted and at present surgery is indefinitely delayed (4) HHD (hypertensive heart disease) Current visit: Yes Status: Acute Category: Medical Code(s): I11.9 - Hypertensive heart disease without heart failure (5) Aortic stenosis Current visit: Yes Status: Acute Category: Medical Code(s): I35.0 - Nonrheumatic aortic (valve) stenosis (6) JAVIER (acute kidney injury) Current visit: Yes Status: Acute Category: Medical Code(s): N17.9 - Acute kidney failure, unspecified Acute kidney injury is stable and shows slow signs of improvement. Patient is in a positive fluid balance over the last 24 hours (7) Anemia Current visit: Yes Status: Acute Qualifiers: Iron deficiency anemia type: chronic blood loss Qualified Code(s): D64.9 - Anemia, unspecified Category: Medical Code(s): D64.9 - Anemia, unspecified Patient's anemia is mixed. He has chronic anemia that is been worsened by bleeding associated with his fracture. Patient will be transfused 2 additional units of packed red blood cells today. (8) Fall Current visit: Yes Status: Acute Qualifiers: Encounter type: initial encounter Qualified Code(s): W19.XXXA - Unspecified fall, initial encounter Category: Medical Code(s): W19.XXXA - Unspecified fall, initial encounter (9) Cellulitis Current visit: No Status: Acute Qualifiers: Site of cellulitis: extremity Site of cellulitis of extremity: lower extremity Laterality: right Qualified Code(s): L03.115 - Cellulitis of right lower limb Category: Medical Code(s): L03.90 - Cellulitis, unspecified (10) Hyperkalemia Current visit: Yes Status: Acute Category: Medical Code(s): E87.5 - Hyperkalemia Hyperkalemia is stable (11) Chronic kidney disease Current visit: Yes Status: Acute Category: Medical Code(s): N18.9 - Chronic kidney disease, unspecified
--- NOTE | 2019-11-05 08:03 | Progress Note ---
Subjective Date: 11/05/19 Time: 07:58 Principal diagnosis: R proximal humerus fracture Interval history: 79-year-old white male in bed continues to be sedated and intubated with mechanical ventilation. Telemetry shows sinus rhythm with nursing report one brief episode of nonsustained ventricular tachycardia last evening that resolved after patient was given usual dose of metoprolol. Patient did receive blood transfusion yesterday and is scheduled to receive another unit of blood today. IV fluids have been discontinued due to evidence of edema in the upper and lower extremities. Exam Vital signs and Labs for Last 24 Hours: Temp Pulse Resp BP Pulse Ox 99.6 F 77 16 136/59 L 94 L 11/05/19 07:00 11/05/19 07:00 11/05/19 07:00 11/05/19 07:00 11/05/19 07:00 Laboratory Results - last 24 hr 11/02/19 12:20: Blood Type O Positive, Antibody Screen Negative, Crossmatch (AHG) See Detail 11/04/19 10:57: Specimen Source L radial, O2 % 40%, ABG pH 7.26 L, ABG pCO2 72.3 H, ABG pO2 56.9 L, ABG HCO3 31.8 H, ABG Total CO2 34.0 H, ABG O2 Saturation 87 L*, ABG Base Excess 4.7 H, Gregory Test Acceptable 11/04/19 15:00: Specimen Source L radial, O2 % 45, ABG pH 7.27 L, ABG pCO2 71.3 H, ABG pO2 91.4, ABG HCO3 31.9 H, ABG Total CO2 34.0 H, ABG O2 Saturation 96, ABG Base Excess 4.9 H, Gregory Test Acceptable, Tidal Volume 18/6 11/04/19 15:03: Hgb 8.9 L, Hct 29.5 L 11/04/19 15:03: Sodium 130 L, Potassium 5.8 H, Chloride 93 L, Carbon Dioxide 32 H, Anion Gap 10.8, BUN 46 H, Creatinine 3.10 H, Estimated Creat Clear 28, Estimated GFR 19 L*, Est GFR ( Amer) 24 L, Glucose 105 H, Calcium 7.7 L 11/04/19 17:05: O2 % 50%, ABG pH 7.30 L, ABG pCO2 59.1 H, ABG pO2 72.6 L, ABG HCO3 28.6 H, ABG Total CO2 30.4 H, ABG O2 Saturation 94, ABG Base Excess 2.3, Gregory Test Patient unable, Vent Rate 16, Tidal Volume 450, PEEP 5 11/04/19 17:45: Urine Color Yellow, Urine Appearance Clear, Urine pH 5.5, Ur Specific [place] >= 1.030, Urine Protein Negative, Urine Glucose (UA) Negative, Urine Ketones Negative, Urine Blood Trace-l, Urine Nitrate Negative, Urine Bilirubin Negative, Urine Urobilinogen 0.2, Ur Leukocyte Esterase Negative, Urine WBC Occasional, Ur Squamous Epith Cells Occasional, Urine Bacteria Trace 11/04/19 21:10: Hgb 9.1 L, Hct 29.7 L 11/05/19 05:37: WBC 6.9, RBC 3.23 L, Hgb 8.8 L, Hct 29.8 L, MCV 92.1, MCH 27.4, MCHC 29.7 L, RDW 15.0, Plt Count 245, MPV 8.0, Neut % (Auto) 76.1, Lymph % (Auto) 9.2 L, [place] % (Auto) 9.5 H, Eos % (Auto) 4.6, Baso % (Auto) 0.6, Neut # (Auto) 5.3, Lymph # (Auto) 0.6 L, [place] # (Auto) 0.7, Eos # (Auto) 0.3, Baso # (Auto) 0.0 11/05/19 05:37: Sodium 130 L, Potassium 4.9, Chloride 96 L, Carbon Dioxide 31 H, Anion Gap 7.9, BUN 40 H, Creatinine 2.30 H D, Estimated Creat Clear 38, Estimated GFR 27 L, Est GFR ( Amer) 33 L D, Glucose 90, Calcium 7.3 L 11/05/19 06:00: Specimen Source Left brachial, O2 % 45, ABG pH 7.36, ABG pCO2 53.3 H, ABG pO2 43.6 L, ABG HCO3 29.1 H, ABG Total CO2 30.7 H, ABG O2 Saturation 80 L*, ABG Base Excess 3.6 H, Gregory Test Non applicable, Vent Rate 16, Tidal Vo lume 450, PEEP 5 I & O for Last 24 hours: Intake & Output 11/02/19 11/03/19 11/04/19 11/05/19 11:59 11:59 11:59 11:59 Intake Total 2009 600 / 600 2196 / 2196 Output Total 200 / 200 675 / 675 1308 / 1308 Balance 1810 / 1810 -75 / -75 888 / 888 Weight 220 lb 7 oz 229 lb 231 lb 2 oz 235 lb 4 oz Microbiology Reports for the Last 24 Hours: Microbiology 11/04/19 16:30 Sputum - Endotracheal Tube Aspirate Gram Stain - Final - *Routine Respiratory Exam Present: CTA bilaterally. Absent: accessory muscle use, rales, rhonchi, wheezes - *Routine Cardiovascular Exam Present: RRR, murmur. Absent: gallop, rubs - *Routine Extremities Exam Present: edema. Absent: calf tenderness - *Routine Neurological Exam Sedated on the vent. Progress Note: A&P (1) Acute respiratory failure with hypoxia and hypercapnia Status: Acute Current Visit: Yes (2) History of atrial fibrillation Status: Acute Current Visit: No (3) Shoulder fracture, right Status: Acute Current Visit: Yes (4) HHD (hypertensive heart disease) Status: Acute Current Visit: Yes (5) Aortic stenosis Status: Acute Current Visit: Yes (6) JAVIER (acute kidney injury) Status: Acute Current Visit: Yes (7) Anemia Status: Acute Current Visit: Yes (8) Fall Status: Acute Current Visit: Yes (9) Cellulitis Status: Acute Current Visit: No (10) Hyperkalemia Status: Acute Current Visit: Yes (11) Chronic kidney disease Status: Acute Current Visit: Yes (12) CHF (congestive heart failure) Status: Acute Assessment and plan: Acute right sided CHF with edema due to respiratory failure, anemia and diastolic dysfunction. Current Visit: Yes Assessment and Plan for All Diagnoses:: 1. Resp Failure, [facility] with weaning in progress. 2. Acute RHF due to #1, anemia and diastolic dysfunction. Repeat dose of IV lasix today due to continued edema and plans for further transfusion. 3. Anemia, transfusions in progress 4. Diastolic dysfunction, grade I 5. Mild aortic stenosis 6. Fall with right humerus fracture, surgery per Ortho 7. Hyperkalemia, resolved 8. Acute on chronic kidney disease, improved 9. History of A. fib, maintaining NSR on metoprolol. No A/C due to falls and recurrent anemia requiring transfusions.
--- NOTE | 2019-11-05 17:03 | Progress Note ---
Internal Medicine - PN: Subj *Date: 11/05/19 *Time: 17:01 Interval history: Patient has remained stable on ventilator throughout the day. He remains on SIMV at a rate of 16 and is overbreathing the ventilator at times with respirations up to 20/min. He is remained lightly sedated. Improvement in renal function this morning allowed for administration of Lasix 80 mg IV once and patient has had over 2 L of urine output since administration of Lasix. Exam Vital signs and Labs for Last 24 Hours: Temp Pulse Resp BP Pulse Ox 99.4 F 79 20 142/65 H 95 11/05/19 16:57 11/05/19 16:57 11/05/19 16:57 11/05/19 16:57 11/05/19 16:57 Laboratory Results - last 24 hr 11/02/19 12:20: Blood Type O Positive, Antibody Screen Negative, Crossmatch (AHG) See Detail 11/04/19 17:05: O2 % 50%, ABG pH 7.30 L, ABG pCO2 59.1 H, ABG pO2 72.6 L, ABG HCO3 28.6 H, ABG Total CO2 30.4 H, ABG O2 Saturation 94, ABG Base Excess 2.3, Gregory Test Patient unable, Vent Rate 16, Tidal Volume 450, PEEP 5 11/04/19 17:45: Urine Color Yellow, Urine Appearance Clear, Urine pH 5.5, Ur Specific [place] >= 1.030, Urine Protein Negative, Urine Glucose (UA) Negative, Urine Ketones Negative, Urine Blood Trace-l, Urine Nitrate Negative, Urine Bilirubin Negative, Urine Urobilinogen 0.2, Ur Leukocyte Esterase Negative, Urine WBC Occasional, Ur Squamous Epith Cells Occasional, Urine Bacteria Trace 11/04/19 21:10: Hgb 9.1 L, Hct 29.7 L 11/05/19 05:37: WBC 6.9, RBC 3.23 L, Hgb 8.8 L, Hct 29.8 L, MCV 92.1, MCH 27.4, MCHC 29.7 L, RDW 15.0, Plt Count 245, MPV 8.0, Neut % (Auto) 76.1, Lymph % (Auto) 9.2 L, [place] % (Auto) 9.5 H, Eos % (Auto) 4.6, Baso % (Auto) 0.6, Neut # (Auto) 5.3, Lymph # (Auto) 0.6 L, [place] # (Auto) 0.7, Eos # (Auto) 0.3, Baso # (Auto) 0.0 11/05/19 05:37: Sodium 130 L, Potassium 4.9, Chloride 96 L, Carbon Dioxide 31 H, Anion Gap 7.9, BUN 40 H, Creatinine 2.30 H D, Estimated Creat Clear 38, Estimated GFR 27 L, Est GFR ( Amer) 33 L D, Glucose 90, Calcium 7.3 L 11/05/19 06:00: Specimen Source Left brachial, O2 % 45, ABG pH 7.36, ABG pCO2 53.3 H, ABG pO2 43.6 L, ABG HCO3 29.1 H, ABG Total CO2 30.7 H, ABG O2 Saturation 80 L*, ABG Base Excess 3.6 H, Gregory Test Non applicable, Vent Rate 16, Tidal Volume 450, PEEP 5 11/05/19 09:00: Blood Type O Positive, Antibody Screen Negative, Crossmatch (AHG) See Detail I & O for Last 24 hours: Intake & Output 11/03/19 11/04/19 11/05/19 11/06/19 11:59 11:59 11:59 11:59 Intake Total 2009 600 / 600 2311 / 2329 638 / 638 Output Total 200 / 200 675 / 675 2253 / 2763 1165 / 1165 Balance 1810 / 1810 -75 / -75 58 / -434 -527 / -527 Weight 229 lb 231 lb 2 oz 235 lb 4 oz Microbiology Reports for the Last 24 Hours: Microbiology 11/04/19 16:30 Sputum - Endotracheal Tube Aspirate Gram Stain - Final 11/04/19 16:30 Sputum - Endotracheal Tube Aspirate Sputum Culture - Preliminary Narrative: Patient appears comfortable on the ventilator. His eyes open when his name is called. Active movement in all extremities is witnessed. Lungs have improved aeration from this morning as rales are absent anteriorly. Heart has a regular rate and rhythm. Abdomen is soft and nontender. Assessment and Plan (1) Acute respiratory failure with hypoxia and hypercapnia Current visit: Yes Status: Acute Category: Medical Code(s): J96.01 - Acute respiratory failure with hypoxia; J96.02 - Acute respiratory failure with hypercapnia (2) History of atrial fibrillation Current visit: No Status: Acute Category: Medical Code(s): Z86.79 - Personal history of other diseases of the circulatory system (3) Shoulder fracture, right Current visit: Yes Status: Acute Qualifiers: Encounter type: initial encounter Fracture type: closed Qualified Code(s): S42.91XA - Fracture of right shoulder girdle, part unspecified, initial encounter for closed fracture Category: Medical Code(s): S42.91XA - Fracture of right shoulder girdle, part unspecified, initial encounter for closed fracture (4) HHD (hypertensive heart disease) Current visit: Yes Status: Acute Category: Medical Code(s): I11.9 - Hypertensive heart disease without heart failure (5) Aortic stenosis Current visit: Yes Status: Acute Category: Medical Code(s): I35.0 - Nonrheumatic aortic (valve) stenosis (6) JAVIER (acute kidney injury) Current visit: Yes Status: Acute Category: Medical Code(s): N17.9 - Acute kidney failure, unspecified (7) Anemia Current visit: Yes Status: Acute Qualifiers: Iron deficiency anemia type: chronic blood loss Qualified Code(s): D64.9 - Anemia, unspecified Category: Medical Code(s): D64.9 - Anemia, unspecified (8) Fall Current visit: Yes Status: Acute Qualifiers: Encounter type: initial encounter Qualified Code(s): W19.XXXA - Unspecified fall, initial encounter Category: Medical Code(s): W19.XXXA - Unspecified fall, initial encounter (9) Cellulitis Current visit: No Status: Acute Qualifiers: Site of cellulitis: extremity Site of cellulitis of extremity: lower extremity Laterality: right Qualified Code(s): L03.115 - Cellulitis of right lower limb Category: Medical Code(s): L03.90 - Cellulitis, unspecified (10) Hyperkalemia Current visit: Yes Status: Acute Category: Medical Code(s): E87.5 - Hyperkalemia (11) Chronic kidney disease Current visit: Yes Status: Acute Category: Medical Code(s): N18.9 - Chronic kidney disease, unspecified (12) CHF (congestive heart failure) Current visit: Yes Status: Acute Category: Medical Code(s): I50.9 - Heart failure, unspecified - Assessment and plan all Dx Assessment and Plan for all problems:: 1. Check posttransfusion H&H and plan to give additional 80 mg of Lasix intravenously. No plans for further fluids at this time. H&H will be repeated again in the morning. 2. Repeat BMP in the morning. 3. Respiratory therapy will continue to work with patient overnight in anticipation of possible extubation in the morning
[2019-11-05 18:04] LABS: Hematocrit 32.8 % (42.0-52.0)
[2019-11-05 18:07] LABS: Hemoglobin 10.6 g/dL (14.1-18.0)
[2019-11-06 06:07] LABS: ABG HCO3 26.8 mmhg (22.0-26.0); ABG Oxygen Saturation 94 % (90-100); ABG PCO2 43.7 mmhg (35.0-45.0); ABG PH 7.41 mmol/L (7.35-7.45); ABG PO2 70.3 mmhg (80-100); ABG TCO2 28.1 mmhg (23-27); Oxygen 40% %; Tidal Volume 500
[2019-11-06 06:08] LABS: Allen's Test ACCEPTABLE; PEEP 5
[2019-11-06 06:16] LABS: Basophils % 0.5 % (0.1-2.0); Eosinophils # 0.4 K/mm3 (0.0-0.4); Eosinophils % 5.2 % (0.1-12.0); Hematocrit 33.6 % (42.0-52.0); Hemoglobin 10.8 g/dL (14.1-18.0); Lymphocytes # 0.7 K/mm3 (0.7-4.5); Lymphocytes % 8.9 % (10-50); Mean Corpuscular Volume 87.7 fl (80-94); Mean Platelet Volume 8.1 fl (7.4-10.4); Monocytes # 0.8 K/mm3 (0.1-1.0); Monocytes % 10.3 % (1.7-9.3); Neutrophils # 6.1 K/mm3 (1.8-7.8); Platelet Count 304 K/mm3 (142-424); Red Blood Count 3.83 M/mm3 (4.60-6.20); Red Cell Distribution Width 14.8 % (11.5-17.5); White Blood Count 8.1 K/mm3 (4.8-10.8)
[2019-11-06 06:25] LABS: Anion Gap 11.1 mEq/L (5-15)
--- NOTE | 2019-11-06 07:15 | Progress Note ---
Internal Medicine - PN: Subj *Date: 11/06/19 *Time: 07:12 Interval history: Patient is remained extubated overnight. He is done well and diuresed an additional 2 L of urine over the 12-hour nursing shift. Nursing staff reports no problems overnight. Vent settings remain SIMV at a rate of 16 with FiO2 of 40%, pressure support of 7, PEEP of 5 Exam Vital signs and Labs for Last 24 Hours: Temp Pulse Resp BP Pulse Ox 99.7 F H 77 16 124/52 L 94 L 11/06/19 06:00 11/06/19 06:00 11/06/19 06:00 11/06/19 06:00 11/06/19 07:00 Laboratory Results - last 24 hr 11/02/19 12:20: Crossmatch (AHG) See Detail 11/05/19 05:37: Magnesium 2.3 11/05/19 09:00: Blood Type O Positive, Antibody Screen Negative, Crossmatch ([facility]) See Detail 11/05/19 17:56: Hgb 10.6 L D, Hct 32.8 L 11/06/19 05:35: WBC 8.1, RBC 3.83 L, Hgb 10.8 L, Hct 33.6 L, MCV 87.7, MCH 28.1, MCHC 32.0, RDW 14.8, Plt Count 304, MPV 8.1, Neut % (Auto) 75.0, Lymph % (Auto) 8.9 L, [place] % (Auto) 10.3 H, Eos % (Auto) 5.2, Baso % (Auto) 0.5, Neut # (Auto) 6.1, Lymph # (Auto) 0.7, [place] # (Auto) 0.8, Eos # (Auto) 0.4, Baso # (Auto) 0.0 11/06/19 05:35: Sodium 133 L, Potassium 4.1, Chloride 95 L, Carbon Dioxide 31 H, Anion Gap 11.1, BUN 34 H, Creatinine 1.70 H D, Estimated Creat Clear 48, Es timated GFR 39 L, Est GFR ( Amer) 47 L D, Glucose 80, Calcium 8.0 L 11/06/19 06:00: Specimen Source L radial, O2 % 40%, ABG pH 7.41, ABG pCO2 43.7, ABG pO2 70.3 L, ABG HCO3 26.8 H, ABG Total CO2 28.1 H, ABG O2 Saturation 94, ABG Base Excess 2.0, Gregory Test Acceptable, Vent Rate 16, Tidal Volume 500, PEEP 5 I & O for Last 24 hours: Intake & Output 11/03/19 11/04/19 11/05/19 11/06/19 11:59 11:59 11:59 11:59 Intake Total 2009 600 / 600 2311 / 2329 997 / 997 Output Total 200 / 200 675 / 675 2253 / 2763 3410 / 3410 Balance 1810 / 1810 -75 / -75 58 / -434 -2413 / -2413 Weight 229 lb 231 lb 2 oz 235 lb 4 oz 219 lb 8 oz Microbiology Reports for the Last 24 Hours: Microbiology 11/04/19 16:30 Sputum - Endotracheal Tube Aspirate Gram Stain - Final 11/04/19 16:30 Sputum - Endotracheal Tube Aspirate Sputum Culture - Preliminary Narrative: Patient appears comfortable. He is sedated. Lungs have significantly improved aeration anteriorly. Patient still has left basilar crackles. Abdomen is soft. Heart has a regular rate and rhythm. Edema in the right hand has improved. Lower extremity edema is 1+ Assessment and Plan (1) Acute respiratory failure with hypoxia and hypercapnia Current visit: Yes Status: Acute Category: Medical Code(s): J96.01 - Acute respiratory failure with hypoxia; J96.02 - Acute respiratory failure with hypercapnia (2) History of atrial fibrillation Current visit: No Status: Acute Category: Medical Code(s): Z86.79 - Personal history of other diseases of the circulatory system (3) Shoulder fracture, right Current visit: Yes Status: Acute Qualifiers: Encounter type: initial encounter Fracture type: closed Qualified Code(s): S42.91XA - Fracture of right shoulder girdle, part unspecified, initial encounter for closed fracture Category: Medical Code(s): S42.91XA - Fracture of right shoulder girdle, part unspecified, initial encounter for closed fracture (4) HHD (hypertensive heart disease) Current visit: Yes Status: Acute Category: Medical Code(s): I11.9 - Hypertensive heart disease without heart failure (5) Aortic stenosis Current visit: Yes Status: Acute Category: Medical Code(s): I35.0 - Nonrheumatic aortic (valve) stenosis (6) JAVIER (acute kidney injury) Current visit: Yes Status: Acute Category: Medical Code(s): N17.9 - Acute kidney failure, unspecified (7) Anemia Current visit: Yes Status: Acute Qualifiers: Iron deficiency anemia type: chronic blood loss Qualified Code(s): D64.9 - Anemia, unspecified Category: Medical Code(s): D64.9 - Anemia, unspecified (8) Fall Current visit: Yes Status: Acute Qualifiers: Encounter type: initial encounter Qualified Code(s): W19.XXXA - Unspecified fall, initial encounter Category: Medical Code(s): W19.XXXA - Unspecified fall, initial encounter (9) Cellulitis Current visit: No Status: Acute Qualifiers: Site of cellulitis: extremity Site of cellulitis of extremity: lower extremity Laterality: right Qualified Code(s): L03.115 - Cellulitis of right lower limb Category: Medical Code(s): L03.90 - Cellulitis, unspecified (10) Hyperkalemia Current visit: Yes Status: Acute Category: Medical Code(s): E87.5 - Hyperkalemia (11) Chronic kidney disease Current visit: Yes Status: Acute Category: Medical Code(s): N18.9 - Chronic kidney disease, unspecified (12) CHF (congestive heart failure) Current visit: Yes Status: Acute Category: Medical Code(s): I50.9 - Heart failure, unspecified - Assessment and plan all Dx Assessment and Plan for all problems:: 1. Sedation will be weaned and patient will be extubated later this morning. 2. Give additional IV Lasix 80 mg this morning 3. PT OT evaluations this afternoon as patient is able
--- NOTE | 2019-11-06 07:45 | Progress Note ---
Subjective Date: 11/06/19 Time: 07:42 Principal diagnosis: R proximal humerus fracture Interval history: 79-year-old white male continues to be on the ventilator but weaning is in progress. Patient is more alert and will follow commands. Patient had a significant diuresis yesterday after IV Lasix was given with his weight now down about 16 pounds in the last couple of days. Exam Vital signs and Labs for Last 24 Hours: Temp Pulse Resp BP Pulse Ox 99.4 F 76 16 122/56 L 94 L 11/06/19 07:00 11/06/19 07:00 11/06/19 07:00 11/06/19 07:00 11/06/19 07:00 Laboratory Results - last 24 hr 11/02/19 12:20: Crossmatch (G) See Detail 11/05/19 05:37: Magnesium 2.3 11/05/19 09:00: Blood Type O Positive, Antibody Screen Negative, Crossmatch ([facility]) See Detail 11/05/19 17:56: Hgb 10.6 L D, Hct 32.8 L 11/06/19 05:35: WBC 8.1, RBC 3.83 L, Hgb 10.8 L, Hct 33.6 L, MCV 87.7, MCH 28.1, MCHC 32.0, RDW 14.8, Plt Count 304, MPV 8.1, Neut % (Auto) 75.0, Lymph % (Auto) 8.9 L, [place] % (Auto) 10.3 H, Eos % (Auto) 5.2, Baso % (Auto) 0.5, Neut # (Auto) 6.1, Lymph # (Auto) 0.7, [place] # (Auto) 0.8, Eos # (Auto) 0.4, Baso # (Auto) 0.0 11/06/19 05:35: Sodium 133 L, Potassium 4.1, Chloride 95 L, Carbon Dioxide 31 H, Anion Gap 11.1, BUN 34 H, Creatinine 1.70 H D, Estimated Creat Clear 48, Estimated GFR 39 L, Est GFR ( Amer) 47 L D, Glucose 80, Calcium 8.0 L 11/06/19 06:00: Specimen Source L radial, O2 % 40%, ABG pH 7.41, ABG pCO2 43.7, ABG pO2 70.3 L, ABG HCO3 26.8 H, ABG Total CO2 28.1 H, ABG O2 Saturation 94, ABG Base Excess 2.0, Gregory Test Acceptable, Vent Rate 16, Tidal Volume 500, PEEP 5 I & O for Last 24 hours: Intake & Output 11/03/19 11/04/19 11/05/19 11/06/19 11:59 11:59 11:59 11:59 Intake Total 2009 600 / 600 2311 / 2329 997 / 997 Output Total 200 / 200 675 / 675 2253 / 2763 3410 / 3410 Balance 1810 / 1810 -75 / -75 58 / -434 -2413 / -2413 Weight 229 lb 231 lb 2 oz 235 lb 4 oz 219 lb 8 oz Microbiology Reports for the Last 24 Hours: Microbiology 11/04/19 16:30 Sputum - Endotracheal Tube Aspirate Gram Stain - Final 11/04/19 16:30 Sputum - Endotracheal Tube Aspirate Sputum Culture - Preliminary - *Routine Respiratory Exam Present: rales. Absent: accessory muscle use, rhonchi, wheezes - *Routine Cardiovascular Exam Present: RRR. Absent: murmur, gallop, rubs - *Routine Extremities Exam Present: edema Progress Note: A&P (1) Acute respiratory failure with hypoxia and hypercapnia Status: Acute Current Visit: Yes (2) History of atrial fibrillation Status: Acute Current Visit: No (3) Shoulder fracture, right Status: Acute Current Visit: Yes (4) HHD (hypertensive heart disease) Status: Acute Current Visit: Yes (5) Aortic stenosis Status: Acute Current Visit: Yes (6) JAVIER (acute kidney injury) Status: Acute Current Visit: Yes (7) Anemia Status: Acute Current Visit: Yes (8) Fall Status: Acute Current Visit: Yes (9) Cellulitis Status: Acute Current Visit: No (10) Hyperkalemia Status: Acute Current Visit: Yes (11) Chronic kidney disease Status: Acute Current Visit: Yes (12) CHF (congestive heart failure) Status: Acute Current Visit: Yes Assessment and Plan for All Diagnoses:: 1. History of paroxysmal atrial fibrillation, maintaining sinus rhythm with metoprolol 50 mg twice daily. 2. Right humerus fracture after fall. Surgery postponed at this time 3. Respiratory failure and congestive heart failure, multifactorial, improved with IV Lasix. Weaning off the vent in progress. 4. Mild aortic stenosis with normal ejection fraction by echocardiogram this week. 5. Chronic kidney disease, back to baseline 6. Hyperkalemia, resolved 7. Anemia, improved with transfusion
--- NOTE | 2019-11-06 07:58 | Electrocardiograph Report ---
APPROVED REPORT Exam: Resting ECG HR:79 bpm ECG Measurements Heart Rate 79 AXES MA 190 P 62 QRSd 112 QRS -42 QT 364 T55 QTc 417 <Conclusion> Normal sinus rhythm Left axis deviation Incomplete left bundle branch block Abnormal ECG Electronically signed by : Dio Candelaria, 11/06/2019 07:58:09
--- NOTE | 2019-11-06 17:11 | Progress Note ---
Internal Medicine - PN: Subj *Date: 11/06/19 *Time: 17:08 Interval history: Patient was extubated this morning and since that time has been on a Ventimask with FiO2 of 50%. He reports he is feeling well. He did receive a single dose of hydrocodone 5 mg for pain in his right shoulder from his fracture. notes this seems to make the patient drowsy and patient is noted to look a little sedate during conversation. He denies shortness of breath. He reports frequent clearing of throat with production of phlegm that he swallows. Patient's failed a bedside swallowing evaluation and has had a formal swallowing evaluation by speech therapist. Patient tolerated sips of water off a spoon. Exam Vital signs and Labs for Last 24 Hours: Temp Pulse Resp BP Pulse Ox 98.7 F 100 H 22 137/65 95 11/06/19 15:55 11/06/19 16:00 11/06/19 15:00 11/06/19 15:00 11/06/19 15:00 Laboratory Results - last 24 hr 11/05/19 05:37: Magnesium 2.3 11/05/19 09:00: Crossmatch ([facility]) See Detail 11/05/19 17:56: Hgb 10.6 L D, Hct 32.8 L 11/06/19 05:35: WBC 8.1, RBC 3.83 L, Hgb 10.8 L, Hct 33.6 L, MCV 87.7, MCH 28.1, MCHC 32.0, RDW 14.8, Plt Count 304, MPV 8.1, Neut % (Auto) 75.0, Lymph % (Auto) 8.9 L, [place] % (Auto) 10.3 H, Eos % (Auto) 5.2, Baso % (Auto) 0.5, Neut # (Auto) 6.1, Lymph # (Auto) 0.7, [place] # (Auto) 0.8, Eos # (Auto) 0.4, Baso # (Auto) 0.0 11/06/19 05:35: Sodium 133 L, Potassium 4.1, Chloride 95 L, Carbon Dioxide 31 H, Anion Gap 11.1, BUN 34 H, Creatinine 1.70 H D, Estimated Creat Clear 48, Estimated GFR 39 L, Est GFR ( Amer) 47 L D, Glucose 80, Calcium 8.0 L 11/06/19 06:00: Specimen Source L radial, O2 % 40%, ABG pH 7.41, ABG pCO2 43.7, ABG pO2 70.3 L, ABG HCO3 26.8 H, ABG Total CO2 28.1 H, ABG O2 Saturation 94, ABG Base Excess 2.0, Gregory Test Acceptable, Vent Rate 16, Tidal Volume 500, PEEP 5 I & O for Last 24 hours: Intake & Output 11/04/19 11/05/19 11/06/19 11/07/19 11:59 11:59 11:59 11:59 Intake Total 600 / 600 2311 / 2329 1016 / 1016 0 / 0 Output Total 675 / 675 2253 / 2263 4385 / 4385 775 / 775 Balance -75 / -75 58 / -434 -3369 / -3369 -775 / -775 Weight 231 lb 2 oz 235 lb 4 oz 219 lb 8 oz Microbiology Reports for the Last 24 Hours: Microbiology 11/04/19 16:30 Sputum - Endotracheal Tube Aspirate Gram Stain - Final 11/04/19 16:30 Sputum - Endotracheal Tube Aspirate Sputum Culture - Preliminary Narrative: Patient looks comfortable in bed. Respirations are even and unlabored. Breath sounds remain diminished in the left base. Heart has a regular rate and rhythm. Abdomen is soft. Lower extremities have no pedal edema nor sean-ankle edema at this time Assessment and Plan (1) Acute respiratory failure with hypoxia and hypercapnia Current visit: Yes Status: Resolved Category: Medical Code(s): J96.01 - Acute respiratory failure with hypoxia; J96.02 - Acute respiratory failure with hypercapnia (2) History of atrial fibrillation Current visit: No Status: Acute Category: Medical Code(s): Z86.79 - Personal history of other diseases of the circulatory system (3) Shoulder fracture, right Current visit: Yes Status: Acute Qualifiers: Encounter type: initial encounter Fracture type: closed Qualified Code(s): S42.91XA - Fracture of right shoulder girdle, part unspecified, initial encounter for closed fracture Category: Medical Code(s): S42.91XA - Fracture of right shoulder girdle, part unspecified, initial encounter for closed fracture (4) HHD (hypertensive heart disease) Current visit: Yes Status: Acute Category: Medical Code(s): I11.9 - Hypertensive heart disease without heart failure (5) Aortic stenosis Current visit: Yes Status: Acute Category: Medical Code(s): I35.0 - Nonrheumatic aortic (valve) stenosis (6) JAVIER (acute kidney injury) Current visit: Yes Status: Acute Category: Medical Code(s): N17.9 - Acute kidney failure, unspecified (7) Anemia Current visit: Yes Status: Acute Qualifiers: Iron deficiency anemia type: chronic blood loss Qualified Code(s): D64.9 - Anemia, unspecified Category: Medical Code(s): D64.9 - Anemia, unspecified (8) Fall Current visit: Yes Status: Acute Qualifiers: Encounter type: initial encounter Qualified Code(s): W19.XXXA - Unspecified fall, initial encounter Category: Medical Code(s): W19.XXXA - Unspecified fall, initial encounter (9) Cellulitis Current visit: No Status: Acute Qualifiers: Site of cellulitis: extremity Site of cellulitis of extremity: lower extremity Laterality: right Qualified Code(s): L03.115 - Cellulitis of right lower limb Category: Medical Code(s): L03.90 - Cellulitis, unspecified (10) Hyperkalemia Current visit: Yes Status: Acute Category: Medical Code(s): E87.5 - Hyperkalemia (11) Chronic kidney disease Current visit: Yes Status: Acute Category: Medical Code(s): N18.9 - Chronic kidney disease, unspecified (12) CHF (congestive heart failure) Current visit: Yes Status: Acute Category: Medical Code(s): I50.9 - Heart failure, unspecified (13) COPD (chronic obstructive pulmonary disease) Current visit: Yes Status: Acute Category: Medical Code(s): J44.9 - Chronic obstructive pulmonary disease, unspecified - Assessment and plan all Dx Assessment and Plan for all problems:: 1. Continue oxygen delivery of the the Ventimask at 50% FiO2 with weaning as tolerated 2. He will be given additional dose of Lasix 40 mg intravenously this evening with repeat BMP and CBC in the morning 3. I am going to adjust his pain medications as patient seems very sensitive to narcotics and this may have attributed to some of his hypercapnia because of respiratory depression
[2019-11-07 05:41] LABS: Basophils # 0.1 K/mm3 (0-0.2); Eosinophils # 0.4 K/mm3 (0.0-0.4); Eosinophils % 5.8 % (0.1-12.0); Lymphocytes # 0.8 K/mm3 (0.7-4.5); Lymphocytes % 10.3 % (10-50); Mean Corpuscular HGB Conc 31.5 g/dL (31.8-35.4); Mean Corpuscular Volume 89.4 fl (80-94); Mean Platelet Volume 7.5 fl (7.4-10.4); Monocytes # 0.7 K/mm3 (0.1-1.0); Monocytes % 9.6 % (1.7-9.3); Neutrophils # 5.6 K/mm3 (1.8-7.8); Neutrophils % 73.4 % (37.0-80.0); Platelet Count 360 K/mm3 (142-424); Red Blood Count 4.47 M/mm3 (4.60-6.20); Red Cell Distribution Width 14.5 % (11.5-17.5); White Blood Count 7.6 K/mm3 (4.8-10.8)
[2019-11-07 05:42] LABS: Hemoglobin 12.6 g/dL (14.1-18.0)
[2019-11-07 05:56] LABS: Calcium 8.5 mg/dl (8.4-10.2)
--- NOTE | 2019-11-07 08:17 | Progress Note ---
Internal Medicine - PN: Subj *Date: 11/07/19 *Time: 08:13 Interval history: Patient has no complaints this morning. Nursing staff reports attempting to give patient sips of water office spoon but patient choked when attempting to do this on multiple occasions overnight. Patient reports he did not sleep very well. He continues to have pain radiating from the right shoulder. He denies shortness of breath. He is still on a Ventimask at 50% FiO2 which is keeping his sats in the low to mid 90s. Exam Vital signs and Labs for Last 24 Hours: Temp Pulse Resp BP Pulse Ox 97.9 F 94 H 21 153/74 H 95 11/07/19 04:00 11/07/19 06:00 11/07/19 06:00 11/07/19 06:00 11/07/19 06:00 Laboratory Results - last 24 hr 11/07/19 05:20: WBC 7.6, RBC 4.47 L, Hgb 12.6 L D, Hct 40.0 L, MCV 89.4, MCH 28.2, MCHC 31.5 L, RDW 14.5, Plt Count 360, MPV 7.5, Neut % (Auto) 73.4, Lymph % (Auto) 10.3, [place] % (Auto) 9.6 H, Eos % (Auto) 5.8, Baso % (Auto) 1.0, Neut # (Auto) 5.6, Lymph # (Auto) 0.8, [place] # (Auto) 0.7, Eos # (Auto) 0.4, Baso # (Auto) 0.1 11/07/19 05:20: Sodium 139, Potassium 4.0, Chloride 94 L, Carbon Dioxide 34 H, Anion Gap 15.0, BUN 32 H, Creatinine 1.40 H, Estimated Creat Clear 58, Estimated GFR 49 L, Est GFR ( Amer) 59 D, Glucose 73 L, Calcium 8.5 I & O for Last 24 hours: Intake & Output 11/04/19 11/05/19 11/06/19 11/07/19 11:59 11:59 11:59 11:59 Intake Total 600 / 600 2311 / 2329 1016 / 1016 0 / 0 Output Total 675 / 675 8373 / 5443 4385 / 9955 2044 / 2044 Balance -75 / -75 58 / -434 -3369 / -3369 -2044 / -204 Weight 231 lb 2 oz 235 lb 4 oz 219 lb 8 oz 219 lb 8.017 oz Microbiology Reports for the Last 24 Hours: Microbiology 11/04/19 16:30 Sputum - Endotracheal Tube Aspirate Gram Stain - Final 11/04/19 16:30 Sputum - Endotracheal Tube Aspirate Sputum Culture - Preliminary Gram Positive Cocci Narrative: Patient looks comfortable and shows no signs of respiratory distress. He has swelling in the right trapezius and right shoulder area and significant palpable trapezius spasm which causes the patient to turn his head to the right. Oropharynx is dry from the Ventimask. Lungs have rhonchi that clear with cough. Diminished breath sounds at the left base persist. There is no wheezing. Heart has a regular rate and rhythm. Abdomen is soft. Lower extremities have no edema this morning. Strength in the lower legs is symmetric in regards to hip flexion, knee flexion and extension, ankle plantar and dorsiflexion. [employer] strength in the left hand is adequate. Assessment and Plan (1) Acute respiratory failure with hypoxia and hypercapnia Current visit: Yes Status: Resolved Category: Medical Code(s): J96.01 - Acute respiratory failure with hypoxia; J96.02 - Acute respiratory failure with hypercapnia (2) History of atrial fibrillation Current visit: No Status: Acute Category: Medical Code(s): Z86.79 - Personal history of other diseases of the circulatory system (3) Shoulder fracture, right Current visit: Yes Status: Acute Qualifiers: Encounter type: initial encounter Fracture type: closed Qualified Code(s): S42.91XA - Fracture of right shoulder girdle, part unspecified, initial encounter for closed fracture Category: Medical Code(s): S42.91XA - Fracture of right shoulder girdle, part unspecified, initial encounter for closed fracture (4) HHD (hypertensive heart disease) Current visit: Yes Status: Acute Category: Medical Code(s): I11.9 - Hypertensive heart disease without heart failure (5) Aortic stenosis Current visit: Yes Status: Acute Category: Medical Code(s): I35.0 - Nonrheumatic aortic (valve) stenosis (6) JAVIER (acute kidney injury) Current visit: Yes Status: Resolved Category: Medical Code(s): N17.9 - Acute kidney failure, unspecified (7) Anemia Current visit: Yes Status: Acute Qualifiers: Iron deficiency anemia type: chronic blood loss Qualified Code(s): D64.9 - Anemia, unspecified Category: Medical Code(s): D64.9 - Anemia, unspecified (8) Fall Current visit: Yes Status: Acute Qualifiers: Encounter type: initial encounter Qualified Code(s): W19.XXXA - Unspecified fall, initial encounter Category: Medical Code(s): W19.XXXA - Unspecified fall, initial encounter (9) Cellulitis Current visit: No Status: Acute Qualifiers: Site of cellulitis: extremity Site of cellulitis of extremity: lower extremity Laterality: right Qualified Code(s): L03.115 - Cellulitis of right lower limb Category: Medical Code(s): L03.90 - Cellulitis, unspecified (10) Hyperkalemia Current visit: Yes Status: Acute Category: Medical Code(s): E87.5 - Hyperkalemia (11) Chronic kidney disease Current visit: Yes Status: Acute Category: Medical Code(s): N18.9 - Chronic kidney disease, unspecified (12) CHF (congestive heart failure) Current visit: Yes Status: Acute Qualifiers: Heart failure type: diastolic Category: Medical Code(s): I50.9 - Heart failure, unspecified (13) COPD (chronic obstructive pulmonary disease) Current visit: Yes Status: Acute Category: Medical Code(s): J44.9 - Chroni c obstructive pulmonary disease, unspecified - Assessment and plan all Dx Assessment and Plan for all problems:: 1. Attempt to wean oxygen today to keep sats in the low to mid 90s 2. Patient will get out of bed to chair with assistance of staff. This may help with his inspiratory effort as well as ability to swallow. Continue incentive spirometry. 3. Tylenol will be scheduled 4. Patient be given a K pad for his neck to see if that can help loosen the neck due to his restricted range of motion from his injury 5. Patient has been in a negative fluid balance over the last 72 hours. I will continue Lasix 40 mg intravenously once daily
[2019-11-08 06:02] LABS: Basophils # 0.1 K/mm3 (0-0.2); Basophils % 0.9 % (0.1-2.0); Eosinophils # 0.4 K/mm3 (0.0-0.4); Eosinophils % 5.4 % (0.1-12.0); Hematocrit 37.1 % (42.0-52.0); Hemoglobin 11.5 g/dL (14.1-18.0); Lymphocytes # 0.8 K/mm3 (0.7-4.5); Lymphocytes % 9.5 % (10-50); Mean Corpuscular HGB Conc 31.1 g/dL (31.8-35.4); Monocytes # 0.9 K/mm3 (0.1-1.0); Monocytes % 11.7 % (1.7-9.3); Neutrophils # 5.7 K/mm3 (1.8-7.8); Neutrophils % 72.5 % (37.0-80.0); Platelet Count 385 K/mm3 (142-424); Red Blood Count 4.17 M/mm3 (4.60-6.20); Red Cell Distribution Width 14.3 % (11.5-17.5); White Blood Count 7.8 K/mm3 (4.8-10.8)
[2019-11-08 06:12] LABS: Anion Gap 9.2 mEq/L (5-15); Calcium 8.2 mg/dl (8.4-10.2)
--- NOTE | 2019-11-08 08:00 | Progress Note ---
Internal Medicine - PN: Subj *Date: 11/08/19 *Time: 07:57 Interval history: Patient is remained stable over the last 24 hours. Overnight nursing did increase patient's supplemental oxygen due to witnessed increased respiratory rate. He seemed to respond to the increase in FiO2 along with some nebs. Unfortunately positioning for the patient remains difficult. Because of the right shoulder fracture there appears to be significant muscle spasm the patient lays in bed with his neck flexed forward and head turned to the left. Bowel appearances this looks quite uncomfortable although patient denies significant pain in his neck this morning. He did sit in the chair yesterday. He was max imum assist with standing up from bed. Exam Vital signs and Labs for Last 24 Hours: Temp Pulse Resp BP Pulse Ox 98.4 F 78 20 133/67 90 L 11/08/19 04:00 11/08/19 07:03 11/08/19 06:00 11/08/19 06:00 11/08/19 07:03 Laboratory Results - last 24 hr 11/07/19 11:07: POC Glucose 76 11/07/19 16:43: POC Glucose 82 11/07/19 22:28: POC Glucose 276 H 11/08/19 05:40: WBC 7.8, RBC 4.17 L, Hgb 11.5 L, Hct 37.1 L, MCV 89.0, MCH 27.6, MCHC 31.1 L, RDW 14.3, Plt Count 385, MPV 8.0, Neut % (Auto) 72.5, Lymph % (Auto) 9.5 L, [place] % (Auto) 11.7 H, Eos % (Auto) 5.4, Baso % (Auto) 0.9, Neut # (Auto) 5.7, Lymph # (Auto) 0.8, [place] # (Auto) 0.9, Eos # (Auto) 0.4, Baso # (Auto) 0.1 11/08/19 05:40: Sodium 135 L, Potassium 4.2, Chloride 92 L, Carbon Dioxide 38 H, Anion Gap 9.2, BUN 37 H, Creatinine 1.40 H, Estimated Creat Clear 58, Estimated GFR 49 L, Est GFR ( Amer) 59, Glucose 176 H, Calcium 8.2 L 11/08/19 06:21: POC Glucose 148 H I & O for Last 24 hours: Intake & Output 11/05/19 11/06/19 11/07/19 11/08/19 11:59 11:59 11:59 11:59 Intake Total 2311 / 2329 1016 / 1016 0 / 0 450 / 450 Output Total 2253 / 2763 4385 / 4385 2044 / 2044 1000 / 1000 Balance 58 / -434 -3369 / -3369 -2045 / -2045 -550 / -550 Weight 235 lb 4 oz 219 lb 8 oz 219 lb 8.017 oz 218 lb 7 oz Microbiology Reports for the Last 24 Hours: Microbiology 11/04/19 16:30 Sputum - Endotracheal Tube Aspirate Gram Stain - Final 11/04/19 16:30 Sputum - Endotracheal Tube Aspirate Sputum Culture - Preliminary Gram Positive Cocci Narrative: Patient looks comfortable laying in bed with Ventimask on. Lungs are clear anteriorly and posteriorly in upper lung ar[place]. The left base there is persistent crackles. Heart has a regular rate and rhythm. Abdomen is soft. Extremities have trace edema on the left just above the ankle. Assessment and Plan (1) Acute respiratory failure with hypoxia and hypercapnia Current visit: Yes Status: Resolved Category: Medical Code(s): J96.01 - Acute respiratory failure with hypoxia; J96.02 - Acute respiratory failure with hypercapnia (2) History of atrial fibrillation Current visit: No Status: Acute Category: Medical Code(s): Z86.79 - Personal history of other diseases of the circulatory system (3) Shoulder fracture, right Current visit: Yes Status: Acute Qualifiers: Encounter type: initial encounter Fracture type: closed Qualified Code(s): S42.91XA - Fracture of right shoulder girdle, part unspecified, initial encounter for closed fracture Category: Medical Code(s): S42.91XA - Fracture of right shoulder girdle, part unspecified, initial encounter for closed fracture (4) HHD (hypertensive heart disease) Current visit: Yes Status: Acute Category: Medical Code(s): I11.9 - Hypertensive heart disease without heart failure (5) Aortic stenosis Current visit: Yes Status: Acute Category: Medical Code(s): I35.0 - Nonrheumatic aortic (valve) stenosis (6) JAVIER (acute kidney injury) Current visit: Yes Status: Resolved Category: Medical Code(s): N17.9 - Acute kidney failure, unspecified (7) Anemia Current visit: Yes Status: Acute Qualifiers: Iron deficiency anemia type: chronic blood loss Qualified Code(s): D64.9 - Anemia, unspecified Category: Medical Code(s): D64.9 - Anemia, unspecified (8) Fall Current visit: Yes Status: Acute Qualifiers: Encounter type: initial encounter Qualified Code(s): W19.XXXA - Unspecified fall, initial encounter Category: Medical Code(s): W19.XXXA - Unspecified fall, initial encounter (9) Cellulitis Current visit: No Status: Acute Qualifiers: Site of cellulitis: extremity Site of cellulitis of extremity: lower extremity Laterality: right Qualified Code(s): L03.115 - Cellulitis of right lower limb Category: Medical Code(s): L03.90 - Cellulitis, unspecified (10) Hyperkalemia Current visit: Yes Status: Acute Category: Medical Code(s): E87.5 - Hyperkalemia (11) Chronic kidney disease Current visit: Yes Status: Acute Category: Medical Code(s): N18.9 - Chronic kidney disease, unspecified (12) CHF (congestive heart failure) Current visit: Yes Status: Acute Qualifiers: Heart failure type: diastolic Category: Medical Code(s): I50.9 - Heart failure, unspecified (13) COPD (chronic obstructive pulmonary disease) Current visit: Yes Status: Acute Category: Medical Code(s): J44.9 - Chronic obstructive pulmonary disease, unspecified - Assessment and plan all Dx Assessment and Plan for all problems:: Goal will be to have the patient sit in the chair some more today as I believe this puts him in a better position to optimize his ability to breathe. Continue hourly incentive spirometry use. Maintain O2 sats above 90%. Patient's diet has been upgraded after reevaluation by speech therapy. Observe for signs of sleep apnea at night
--- NOTE | 2019-11-08 09:42 | Progress Note ---
Internal Medicine - PN: Subj *Date: 11/08/19 *Time: 09:42 Exam Vital signs and Labs for Last 24 Hours: Temp Pulse Resp BP Pulse Ox 98.8 F 78 20 133/67 90 L 11/08/19 08:00 11/08/19 07:03 11/08/19 06:00 11/08/19 06:00 11/08/19 07:03 Laboratory Results - last 24 hr 11/05/19 09:00: Crossmatch (AHG) See Detail 11/07/19 11:07: POC Glucose 76 11/07/19 16:43: POC Glucose 82 11/07/19 22:28: POC Glucose 276 H 11/08/19 05:40: WBC 7.8, RBC 4.17 L, Hgb 11.5 L, Hct 37.1 L, MCV 89.0, MCH 27.6, MCHC 31.1 L, RDW 14.3, Plt Count 385, MPV 8.0, Neut % (Auto) 72.5, Lymph % (Auto) 9.5 L, [place] % (Auto) 11.7 H, Eos % (Auto) 5.4, Baso % (Auto) 0.9, Neut # (Auto) 5.7, Lymph # (Auto) 0.8, [place] # (Auto) 0.9, Eos # (Auto) 0.4, Baso # (Auto) 0.1 11/08/19 05:40: Sodium 135 L, Potassium 4.2, Chloride 92 L, Carbon Dioxide 38 H, Anion Gap 9.2, BUN 37 H, Creatinine 1.40 H, Estimated Creat Clear 58, Estimated GFR 49 L, Est GFR ( Amer) 59, Glucose 176 H, Calcium 8.2 L 11/08/19 06:21: POC Glucose 148 H I & O for Last 24 hours: Intake & Output 11/05/19 11/06/19 11/07/19 11/08/19 23:59 23:59 23:59 23:59 Intake Total 1661 / 1684 236 / 236 50 / 50 400 / 400 Output Total 4240 / 4285 3230 / 3330 1595 / 1595 Balance -2579 / -2601 -2994 / -3094 -1545 / -1545 400 / 400 Weight 106.708 kg 99.564 kg 99.564 kg 99.082 kg Microbiology Reports for the Last 24 Hours: Microbiology 11/04/19 16:30 Sputum - Endotracheal Tube Aspirate Gram Stain - Final 11/04/19 16:30 Sputum - Endotracheal Tube Aspirate Sputum Culture - Preliminary Gram Positive Cocci Assessment and Plan (1) Acute respiratory failure with hypoxia and hypercapnia Current visit: Yes Status: Resolved Category: Medical Code(s): J96.01 - Acute respiratory failure with hypoxia; J96.02 - Acute respiratory failure with hypercapnia (2) History of atrial fibrillation Current visit: No Status: Acute Category: Medical Code(s): Z86.79 - Personal history of other diseases of the circulatory system (3) Shoulder fracture, right Current visit: Yes Status: Acute Qualifiers: Encounter type: initial encounter Fracture type: closed Qualified Code(s): S42.91XA - Fracture of right shoulder girdle, part unspecified, initial encounter for closed fracture Category: Medical Code(s): S42.91XA - Fracture of right shoulder girdle, part unspecified, initial encounter for closed fracture (4) HHD (hypertensive heart disease) Current visit: Yes Status: Acute Category: Medical Code(s): I11.9 - Hypertensive heart disease without heart failure (5) Aortic stenosis Current visit: Yes Status: Acute Category: Medical Code(s): I35.0 - Nonrheumatic aortic (valve) stenosis (6) JAVIER (acute kidney injury) Current visit: Yes Status: Resolved Category: Medical Code(s): N17.9 - Acute kidney failure, unspecified (7) Anemia Current visit: Yes Status: Acute Qualifiers: Iron deficiency anemia type: chronic blood loss Qualified Code(s): D64.9 - Anemia, unspecified Category: Medical Code(s): D64.9 - Anemia, unspecified (8) Fall Current visit: Yes Status: Acute Qualifiers: Encounter type: initial encounter Qualified Code(s): W19.XXXA - Unspecified fall, initial encounter Category: Medical Code(s): W19.XXXA - Unspecified fall, initial encounter (9) Cellulitis Current visit: No Status: Acute Qualifiers: Site of cellulitis: extremity Site of cellulitis of extremity: lower extremity Laterality: right Qualified Code(s): L03.115 - Cellulitis of right lower limb Category: Medical Code(s): L03.90 - Cellulitis, unspecified (10) Hyperkalemia Current visit: Yes Status: Acute Category: Medical Code(s): E87.5 - Hyperkalemia (11) Chronic kidney disease Current visit: Yes Status: Acute Category: Medical Code(s): N18.9 - Chronic kidney disease, unspecified (12) CHF (congestive heart failure) Current visit: Yes Status: Acute Qualifiers: Heart failure type: diastolic Category: Medical Code(s): I50.9 - Heart failure, unspecified (13) COPD (chronic obstructive pulmonary disease) Current visit: Yes Status: Acute Category: Medical Code(s): J44.9 - Chronic obstructive pulmonary disease, unspecified The patient's infection will respond to the chosen ABx?: Yes Is the patient receiving the right drug, dose, and route?: Yes Could a more targeted ABx be ordered?: No (GRAM POSITIVE COCCI IN SPUTUM)
--- NOTE | 2019-11-08 12:09 | Pharmacy Consult Notes ---
- Pharmacy Consult Date: 11/08/19 Time: 12:08 Referring provider: DR. EVANS Reason for Consult:: VANCOMYCIN DOSING Allergies and ADEs:: Allergies Allergy/AdvReac Type Severity Reaction Status Date / Time codeine [CODEINE] Allergy Unknown Verified 11/02/19 05:01 Home Medications:: Home Medications Medication Instructions Recorded Confirmed Type Amlodipine Besylate [Amlodipine 10 mg PO DAILY 09/23/17 11/02/19 History 10mg Tab] Pantoprazole Sodium [Pantoprazole 40 mg PO DAILY 09/23/17 11/02/19 History 20mg Tab] lisinopriL [Lisinopril 40mg Tablet] 40 mg PO DAILY 09/23/17 11/02/19 History Ferrous Sulfate [Iron] 65 mg PO DAILY 03/04/18 11/02/19 History Furosemide [Furosemide 40MG tAB] 40 mg PO BID 03/04/18 11/02/19 History Metoprolol Tartrate 50 mg PO DAILY 03/05/18 11/02/19 History Sulfamethoxazole/Trimethoprim 1 each PO BID #14 tab 10/26/19 11/02/19 Rx [Bactrim DS tablet] Height: 1.88 m Weight: 99.082 kg Laboratory Results:: Laboratory Results - last 24 hr 11/05/19 09:00: Crossmatch (AHG) See Detail 11/07/19 16:43: POC Glucose 82 11/07/19 22:28: POC Glucose 276 H 11/08/19 05:40: WBC 7.8, RBC 4.17 L, Hgb 11.5 L, Hct 37.1 L, MCV 89.0, MCH 27.6, MCHC 31.1 L, RDW 14.3, Plt Count 385, MPV 8.0, Neut % (Auto) 72.5, Lymph % (Auto) 9.5 L, [place] % (Auto) 11.7 H, Eos % (Auto) 5.4, Baso % (Auto) 0.9, Neut # (Auto) 5.7, Lymph # (Auto) 0.8, [place] # (Auto) 0.9, Eos # (Auto) 0.4, Baso # (Auto) 0.1 11/08/19 05:40: Sodium 135 L, Potassium 4.2, Chloride 92 L, Carbon Dioxide 38 H, Anion Gap 9.2, BUN 37 H, Creatinine 1.40 H, Estimated Creat Clear 58, Estimated GFR 49 L, Est GFR ( Amer) 59, Glucose 176 H, Calcium 8.2 L 11/08/19 06:21: POC Glucose 148 H Medical History: Reports:: Arrhythmia, Atrial Fibrillation (Bruxism), Cancer (skin), Congestive Heart Failure (Diastolic), Hypertension, Palpitations Denies:: Diabetes Mellitus Type 1, Diabetes Mellitus Type 2, Internal Pacemaker, Lung Disease, MRSA, Seizures Assessment and Plan (1) Acute respiratory failure with hypoxia and hypercapnia Current visit: Yes Status: Resolved Category: Medical Code(s): J96.01 - Acute respiratory failure with hypoxia; J96.02 - Acute respiratory failure with hypercapnia (2) History of atrial fibrillation Current visit: No Status: Acute Category: Medical Code(s): Z86.79 - Personal history of other diseases of the circulatory system (3) Shoulder fracture, right Current visit: Yes Status: Acute Qualifiers: Encounter type: initial encounter Fracture type: closed Qualified Code(s): S42.91XA - Fracture of right shoulder girdle, part unspecified, initial encounter for closed fracture Category: Medical Code(s): S42.91XA - Fracture of right shoulder girdle, part unspecified, initial encounter for closed fracture (4) HHD (hypertensive heart disease) Current visit: Yes Status: Acute Category: Medical Code(s): I11.9 - Hypertensive heart disease without heart failure (5) Aortic stenosis Current visit: Yes Status: Acute Category: Medical Code(s): I35.0 - Nonrheumatic aortic (valve) stenosis (6) JAVIER (acute kidney injury) Current visit: Yes Status: Resolved Category: Medical Code(s): N17.9 - Acute kidney failure, unspecified (7) Anemia Current visit: Yes Status: Acute Qualifiers: Iron deficiency anemia type: chronic blood loss Qualified Code(s): D64.9 - Anemia, unspecified Category: Medical Code(s): D64.9 - Anemia, unspecified (8) Fall Current visit: Yes Status: Acute Qualifiers: Encounter type: initial encounter Qualified Code(s): W19.XXXA - Unspecified fall, initial encounter Category: Medical Code(s): W19.XXXA - Unspecified fall, initial encounter (9) Cellulitis Current visit: No Status: Acute Qualifiers: Site of cellulitis: extremity Site of cellulitis of extremity: lower extremity Laterality: right Qualified Code(s): L03.115 - Cellulitis of right lower limb Category: Medical Code(s): L03.90 - Cellulitis, unspecified (10) Hyperkalemia Current visit: Yes Status: Acute Category: Medical Code(s): E87.5 - Hyperkalemia (11) Chronic kidney disease Current visit: Yes Status: Acute Category: Medical Code(s): N18.9 - Chronic kidney disease, unspecified (12) CHF (congestive heart failure) Current visit: Yes Status: Acute Qualifiers: Heart failure type: diastolic Category: Medical Code(s): I50.9 - Heart failure, unspecified (13) COPD (chronic obstructive pulmonary disease) Current visit: Yes Status: Acute Category: Medical Code(s): J44.9 - Chronic obstructive pulmonary disease, unspecified - Assessment and plan all Dx Assessment and Plan for all problems:: BASED ON PATIENT FACTORS, RECOMMEND INITIATING VANCOMYCIN IV AT 2,000MG EVERY 24 HOURS FOR MRSA IN SPUTUM. PHARMACY WILL MONITOR AND ADJUST DOSE APPROPRIATE. -CHERYL BARNHART, ROSALIED
[2019-11-09 06:39] LABS: Basophils # 0.1 K/mm3 (0-0.2); Eosinophils # 0.6 K/mm3 (0.0-0.4); Eosinophils % 7.3 % (0.1-12.0); Hematocrit 38.4 % (42.0-52.0); Hemoglobin 12.1 g/dL (14.1-18.0); Lymphocytes # 0.8 K/mm3 (0.7-4.5); Lymphocytes % 9.8 % (10-50); Mean Corpuscular HGB Conc 31.4 g/dL (31.8-35.4); Mean Corpuscular Volume 89.3 fl (80-94); Mean Platelet Volume 7.7 fl (7.4-10.4); Monocytes # 0.7 K/mm3 (0.1-1.0); Monocytes % 8.4 % (1.7-9.3); Neutrophils # 6.1 K/mm3 (1.8-7.8); Neutrophils % 73.5 % (37.0-80.0); Platelet Count 393 K/mm3 (142-424); Red Cell Distribution Width 14.5 % (11.5-17.5); White Blood Count 8.3 K/mm3 (4.8-10.8)
[2019-11-09 06:45] LABS: Calcium 8.4 mg/dl (8.4-10.2)
--- NOTE | 2019-11-09 08:15 | Progress Note ---
Internal Medicine - PN: Subj *Date: 11/09/19 *Time: 08:12 Interval history: Patient reports feeling better this morning. Yesterday afternoon his sputum culture returned positive for MRSA. Patient was started on vancomycin. His appetite is improved. He has been weaned to supplemental oxygen via nasal cannula at 3 L/min. He continues to maintain O2 sats in the low to mid 90s. He reports his lower extremities are feeling stronger although he admits unsteadiness when standing. Exam Vital signs and Labs for Last 24 Hours: Temp Pulse Resp BP Pulse Ox 99.2 F 93 H 27 H 145/73 H 92 L 11/09/19 04:00 11/09/19 06:00 11/09/19 06:00 11/09/19 06:00 11/09/19 06:00 Laboratory Results - last 24 hr 11/05/19 09:00: Crossmatch (AHG) See Detail 11/09/19 06:08: WBC 8.3, RBC 4.30 L, Hgb 12.1 L, Hct 38.4 L, MCV 89.3, MCH 28.0, MCHC 31.4 L, RDW 14.5, Plt Count 393, MPV 7.7, Neut % (Auto) 73.5, Lymph % (Auto) 9.8 L, [place] % (Auto) 8.4, Eos % (Auto) 7.3, Baso % (Auto) 1.0, Neut # (Auto) 6.1, Lymph # (Auto) 0.8, [place] # (Auto) 0.7, Eos # (Auto) 0.6 H, Baso # (Auto) 0.1 11/09/19 06:08: Sodium 135 L, Potassium 4.0, Chloride 92 L, Carbon Dioxide 38 H, Anion Gap 9.0, BUN 34 H, Creatinine 1.10 D, Estimated Creat Clear 76, Estimated GFR 64, Est GFR ( Amer) 78 D, Glucose 131 H, Calcium 8.4 I & O for Last 24 hours: Intake & Output 11/06/19 11/07/19 11/08/19 11/09/19 11:59 11:59 11:59 11:59 Intake Total 1016 / 1016 0 / 0 450 / 450 1050 / 1050 Output Total 4385 / 4385 2045 / 2045 1000 / 1000 200 / 200 Balance -3369 / -3369 -2045 / -2045 -550 / -550 850 / 850 Weight 219 lb 8 oz 219 lb 8.017 oz 218 lb 7 oz 224 lb Microbiology Reports for the Last 24 Hours: Microbiology 11/04/19 16:30 Sputum - Endotracheal Tube Aspirate Gram Stain - Final 11/04/19 16:30 Sputum - Endotracheal Tube Aspirate Sputum Culture - Final Staphylococcus aureus Narrative: Patient is sitting in bed and appears in no distress. He looks quite uncomfortable as he sits with his head tilted forward and turned to his left. Lungs have improved inspiratory effort today with rales in the left base and diminished breath sounds in the left base. Abdomen is soft. Heart has a regular rate and rhythm. Lower extremities have no edema. Assessment and Plan (1) Acute respiratory failure with hypoxia and hypercapnia Current visit: Yes Status: Resolved Category: Medical Code(s): J96.01 - Acute respiratory failure with hypoxia; J96.02 - Acute respiratory failure with hypercapnia (2) History of atrial fibrillation Current visit: No Status: Acute Category: Medical Code(s): Z86.79 - Personal history of other diseases of the circulatory system (3) Shoulder fracture, right Current visit: Yes Status: Acute Qualifiers: Encounter type: initial encounter Fracture type: closed Qualified Code(s): S42.91XA - Fracture of right shoulder girdle, part unspecified, initial encounter for closed fracture Category: Medical Code(s): S42.91XA - Fracture of right shoulder girdle, part unspecified, initial encounter for closed fracture (4) HHD (hypertensive heart disease) Current visit: Yes Status: Acute Category: Medical Code(s): I11.9 - Hypertensive heart disease without heart failure (5) Aortic stenosis Current visit: Yes Status: Acute Category: Medical Code(s): I35.0 - Nonrheumatic aortic (valve) stenosis (6) JAVIER (acute kidney injury) Current visit: Yes Status: Resolved Category: Medical Code(s): N17.9 - Acute kidney failure, unspecified (7) Anemia Current visit: Yes Status: Acute Qualifiers: Iron deficiency anemia type: chronic blood loss Qualified Code(s): D64.9 - Anemia, unspecified Category: Medical Code(s): D64.9 - Anemia, unspecified (8) Fall Current visit: Yes Status: Acute Qualifiers: Encounter type: initial encounter Qualified Code(s): W19.XXXA - Unspecified fall, initial encounter Category: Medical Code(s): W19.XXXA - Unspecified fall, initial encounter (9) Cellulitis Current visit: No Status: Acute Qualifiers: Site of cellulitis: extremity Site of cellulitis of extremity: lower extremity Laterality: right Qualified Code(s): L03.115 - Cellulitis of right lower limb Category: Medical Code(s): L03.90 - Cellulitis, unspecified (10) Hyperkalemia Current visit: Yes Status: Acute Category: Medical Code(s): E87.5 - Hyperkalemia (11) Chronic kidney disease Current visit: Yes Status: Acute Category: Medical Code(s): N18.9 - Chronic kidney disease, unspecified (12) CHF (congestive heart failure) Current visit: Yes Status: Acute Qualifiers: Heart failure type: diastolic Category: Medical Code(s): I50.9 - Heart failure, unspecified (13) COPD (chronic obstructive pulmonary disease) Current visit: Yes Status: Acute Category: Medical Code(s): J44.9 - Chronic obstructive pulmonary disease, unspecified (14) Left lower lobe pneumonia Current visit: Yes Status: Acute Category: Medical Code(s): J18.9 - Pneumonia, unspecified organism (15) MRSA pneumonia Current visit: Yes Status: Acute Category: Medical Code(s): J15.212 - Pneumonia due to Methicillin resistant Staphylococcus aureus - Assessment and plan all Dx Assessment and Plan for all problems:: 1. Patient may be transferred out of stepdown unit 2. Continue vancomycin 3. No change in other medical care at this time. Continue attempts to wean oxygen. Encourage patient to be more active and continue PT eval.
--- NOTE | 2019-11-09 17:37 | Progress Note ---
Subjective Date: 11/09/19 Time: 15:00 Principal diagnosis: R proximal humerus fracture Interval history: The patient was not able to go to surgery due to acute decompensation with renal/respiratory failure requiring hydration and intubation/stepdown monitoring. He has been extubated several days and doing well on oxygen via nasal cannula. Sputum culture positive for MRSA, IV vancomycin started. PN: Obj Ex Vital signs: Temp Pulse Resp BP Pulse Ox 97.4 F L 93 H 27 H 145/73 H 91 L 11/09/19 08:00 11/09/19 06:00 11/09/19 06:00 11/09/19 06:00 11/09/19 08:00 - Routine Extremities Exam Comments: R shoulder mild ecchymosis anteriorly --> improving unable to lift R arm at shoulder due to pain FROM R elbow/wrist/forearm/hand; no tenderness AIN/PIN/ulnar nerves motor intact RUE SILT distally m/r/u distributions RUE palpable radial pulse R wrist, BCR all digits - Urinary Catheter Management Coude Cath placed during this visit: no Progress Note: A&P (1) Acute respiratory failure with hypoxia and hypercapnia Status: Resolved Current Visit: Yes (2) History of atrial fibrillation Status: Acute Current Visit: No (3) Shoulder fracture, right Status: Acute Current Visit: Yes (4) HHD (hypertensive heart disease) Status: Acute Current Visit: Yes (5) Aortic stenosis Status: Acute Current Visit: Yes (6) JAVIER (acute kidney injury) Status: Resolved Current Visit: Yes (7) Anemia Status: Acute Current Visit: Yes (8) Fall Status: Acute Current Visit: Yes (9) Cellulitis Status: Acute Current Visit: No (10) Hyperkalemia Status: Acute Current Visit: Yes (11) Chronic kidney disease Status: Acute Current Visit: Yes (12) CHF (congestive heart failure) Status: Acute Current Visit: Yes (13) COPD (chronic obstructive pulmonary disease) Status: Acute Current Visit: Yes (14) Left lower lobe pneumonia Status: Acute Current Visit: Yes (15) MRSA pneumonia Status: Acute Current Visit: Yes Assessment and Plan for All Diagnoses:: 79yo M with R proximal humerus fracture; DOI 11/02/19 -- continue sling, SONG RUE -- ice pack R shoulder PRN -- continue medical management per Dr. Gould, I will follow peripherally -- f/u in clinic after discharge, call for appointment. If still inpatient at the end of this week, will re-XR the shoulder. -- continue PT/OT for mobilization, but wear sling while ambulatory, SONG PINA
[2019-11-10 06:31] LABS: Basophils # 0.1 K/mm3 (0-0.2); Basophils % 0.7 % (0.1-2.0); Eosinophils # 0.5 K/mm3 (0.0-0.4); Eosinophils % 6.6 % (0.1-12.0); Hematocrit 37.8 % (42.0-52.0); Hemoglobin 11.6 g/dL (14.1-18.0); Lymphocytes # 1.1 K/mm3 (0.7-4.5); Lymphocytes % 12.8 % (10-50); Mean Corpuscular HGB Conc 30.6 g/dL (31.8-35.4); Mean Corpuscular Volume 90.8 fl (80-94); Mean Platelet Volume 7.4 fl (7.4-10.4); Monocytes # 0.7 K/mm3 (0.1-1.0); Monocytes % 8.6 % (1.7-9.3); Neutrophils # 5.8 K/mm3 (1.8-7.8); Neutrophils % 71.2 % (37.0-80.0); Platelet Count 379 K/mm3 (142-424); Red Blood Count 4.16 M/mm3 (4.60-6.20); Red Cell Distribution Width 14.4 % (11.5-17.5); White Blood Count 8.1 K/mm3 (4.8-10.8)
[2019-11-10 06:40] LABS: Anion Gap 8.5 mEq/L (5-15); Calcium 8.9 mg/dl (8.4-10.2)
--- NOTE | 2019-11-10 07:23 | Progress Note ---
Internal Medicine - PN: Subj *Date: 11/10/19 *Time: 07:21 Interval history: Patient has no concerns this morning and denies pain or shortness of breath. Nursing staff reports he required the assistance of 3 staff to attempt to stand. Patient was confused and had some difficulty following instructions. Patient is oriented to person and place Exam Vital signs and Labs for Last 24 Hours: Temp Pulse Resp BP Pulse Ox 99.1 F 91 H 22 170/80 H 91 L 11/10/19 03:42 11/10/19 04:07 11/10/19 03:42 11/10/19 03:42 11/10/19 05:12 Laboratory Results - last 24 hr 11/10/19 05:45: WBC 8.1, RBC 4.16 L, Hgb 11.6 L, Hct 37.8 L, MCV 90.8, MCH 27.8, MCHC 30.6 L, RDW 14.4, Plt Count 379, MPV 7.4, Neut % (Auto) 71.2, Lymph % (Auto) 12.8, [place] % (Auto) 8.6, Eos % (Auto) 6.6, Baso % (Auto) 0.7, Neut # (Auto) 5.8, Lymph # (Auto) 1.1, [place] # (Auto) 0.7, Eos # (Auto) 0.5 H, Baso # (Auto) 0.1 11/10/19 05:45: Sodium 133 L, Potassium 4.5, Chloride 92 L, Carbon Dioxide 37 H, Anion Gap 8.5, BUN 37 H, Creatinine 1.10, Estimated Creat Clear 73, Estimated GFR 64, Est GFR ( Amer) 78, Glucose 144 H, Calcium 8.9 I & O for Last 24 hours: Intake & Output 11/07/19 11/08/19 11/09/19 11/10/19 11:59 11:59 11:59 11:59 Intake Total 0 / 0 450 / 450 1410 / 1410 1010 / 1010 Output Total 2044 / 2044 1000 / 1000 201 / 201 1075 / 1075 Balance -2044 / -2045 -550 / -550 1209 / 1209 -65 / -65 Weight 219 lb 8.017 oz 218 lb 7 oz 224 lb 217 lb 7 oz Narrative: Patient does not appear to be in any respiratory distress. When I entered the room patient's oxygen was off as he had been trying to blow his nose and could not get the oxygen back in place. He was assisted. Speech is clear. Lungs have improved aeration with diminished breath sounds in the left base. Heart has a regular rate and rhythm. Abdomen is soft. Lower extremities have SCDs in place and no edema Assessment and Plan (1) MRSA pneumonia Current visit: Yes Status: Acute Category: Medical Code(s): J15.212 - Pneumonia due to Methicillin resistant Staphylococcus aureus (2) Acute respiratory failure with hypoxia and hypercapnia Current visit: Yes Status: Resolved Category: Medical Code(s): J96.01 - Acute respiratory failure with hypoxia; J96.02 - Acute respiratory failure with hypercapnia (3) History of atrial fibrillation Current visit: No Status: Acute Category: Medical Code(s): Z86.79 - Personal history of other diseases of the circulatory system (4) Shoulder fracture, right Current visit: Yes Status: Acute Qualifiers: Encounter type: initial encounter Fracture type: closed Qualified Code(s): S42.91XA - Fracture of right shoulder girdle, part unspecified, initial encounter for closed fracture Category: Medical Code(s): S42.91XA - Fracture of right shoulder girdle, part unspecified, initial encounter for closed fracture (5) HHD (hypertensive heart disease) Current visit: Yes Status: Acute Category: Medical Code(s): I11.9 - Hypertensive heart disease without heart failure (6) Aortic stenosis Current visit: Yes Status: Acute Category: Medical Code(s): I35.0 - Nonrheumatic aortic (valve) stenosis (7) JAVIER (acute kidney injury) Current visit: Yes Status: Resolved Category: Medical Code(s): N17.9 - Acute kidney failure, unspecified (8) Anemia Current visit: Yes Status: Acute Qualifiers: Iron deficiency anemia type: chronic blood loss Qualified Code(s): D64.9 - Anemia, unspecified Category: Medical Code(s): D64.9 - Anemia, unspecified (9) Fall Current visit: Yes Status: Acute Qualifiers: Encounter type: initial encounter Qualified Code(s): W19.XXXA - Unspecified fall, initial encounter Category: Medical Code(s): W19.XXXA - Unspecified fall, initial encounter (10) Cellulitis Current visit: No Status: Acute Qualifiers: Site of cellulitis: extremity Site of cellulitis of extremity: lower extremity Laterality: right Qualified Code(s): L03.115 - Cellulitis of right lower limb Category: Medical Code(s): L03.90 - Cellulitis, unspecified (11) Hyperkalemia Current visit: Yes Status: Acute Category: Medical Code(s): E87.5 - Hyperkalemia (12) Chronic kidney disease Current visit: Yes Status: Acute Category: Medical Code(s): N18.9 - Chronic kidney disease, unspecified (13) CHF (congestive heart failure) Current visit: Yes Status: Acute Qualifiers: Heart failure type: diastolic Category: Medical Code(s): I50.9 - Heart failure, unspecified (14) COPD (chronic obstructive pulmonary disease) Current visit: Yes Status: Acute Category: Medical Code(s): J44.9 - Chronic obstructive pulmonary disease, unspecified (15) Left lower lobe pneumonia Current visit: Yes Status: Acute Category: Medical Code(s): J18.9 - Pneumonia, unspecified organism - Assessment and plan all Dx Assessment and Plan for all problems:: Continue vancomycin for MRSA pneumonia. Increase pulmonary toilet. Out of bed to chair today and ambulate as tolerated. Patient has been severely deconditioned from his illness and is likely going require prolonged course of rehab. SNF is being investigated.
--- NOTE | 2019-11-10 12:53 | Pharmacy Consult Notes ---
- Pharmacy Consult Date: 11/10/19 Time: 12:51 Referring provider: DR. EVANS Reason for Consult:: VANCOMYCIN TROUGH LEVEL Allergies and ADEs:: Allergies Allergy/AdvReac Type Severity Reaction Status Date / Time codeine [CODEINE] Allergy Unknown Verified 11/02/19 05:01 Home Medications:: Home Medications Medication Instructions Recorded Confirmed Type Amlodipine Besylate [Amlodipine 10 mg PO DAILY 09/23/17 11/02/19 History 10mg Tab] Pantoprazole Sodium [Pantoprazole 40 mg PO DAILY 09/23/17 11/02/19 History 20mg Tab] lisinopriL [Lisinopril 40mg Tablet] 40 mg PO DAILY 09/23/17 11/02/19 History Ferrous Sulfate [Iron] 65 mg PO DAILY 03/04/18 11/02/19 History Furosemide [Furosemide 40MG tAB] 40 mg PO BID 03/04/18 11/02/19 History Metoprolol Tartrate 50 mg PO DAILY 03/05/18 11/02/19 History Sulfamethoxazole/Trimethoprim 1 each PO BID #14 tab 10/26/19 11/02/19 Rx [Bactrim DS tablet] Height: 1.88 m Weight: 98.628 kg Laboratory Results:: Laboratory Results - last 24 hr 11/10/19 05:45: WBC 8.1, RBC 4.16 L, Hgb 11.6 L, Hct 37.8 L, MCV 90.8, MCH 27.8, MCHC 30.6 L, RDW 14.4, Plt Count 379, MPV 7.4, Neut % (Auto) 71.2, Lymph % (Auto) 12.8, [place] % (Auto) 8.6, Eos % (Auto) 6.6, Baso % (Auto) 0.7, Neut # (Auto) 5.8, Lymph # (Auto) 1.1, [place] # (Auto) 0.7, Eos # (Auto) 0.5 H, Baso # (Auto) 0.1 11/10/19 05:45: Sodium 133 L, Potassium 4.5, Chloride 92 L, Carbon Dioxide 37 H, Anion Gap 8.5, BUN 37 H, Creatinine 1.10, Estimated Creat Clear 73, Estimated GFR 64, Est GFR ( Amer) 78, Glucose 144 H, Calcium 8.9 11/10/19 12:03: Vancomycin Trough 14.1 H Medical History: Reports:: Arrhythmia, Atrial Fibrillation (Bruxism), Cancer (skin), Congestive Heart Failure (Diastolic), Hypertension, Palpitations Denies:: Diabetes Mellitus Type 1, Diabetes Mellitus Type 2, Internal Pacemaker, Lung Disease, MRSA, Seizures Assessment and Plan (1) MRSA pneumonia Current visit: Yes Status: Acute Category: Medical Code(s): J15.212 - Pneumonia due to Methicillin resistant Staphylococcus aureus (2) Acute respiratory failure with hypoxia and hypercapnia Current visit: Yes Status: Resolved Category: Medical Code(s): J96.01 - Acute respiratory failure with hypoxia; J96.02 - Acute respiratory failure with hypercapnia (3) History of atrial fibrillation Current visit: No Status: Acute Category: Medical Code(s): Z86.79 - Personal history of other diseases of the circulatory system (4) Shoulder fracture, right Current visit: Yes Status: Acute Qualifiers: Encounter type: initial encounter Fracture type: closed Qualified Code(s): S42.91XA - Fracture of right shoulder girdle, part unspecified, initial encounter for closed fracture Category: Medical Code(s): S42.91XA - Fracture of right shoulder girdle, part unspecified, initial encounter for closed fracture (5) HHD (hypertensive heart disease) Current visit: Yes Status: Acute Category: Medical Code(s): I11.9 - Hypertensive heart disease without heart failure (6) Aortic stenosis Current visit: Yes Status: Acute Category: Medical Code(s): I35.0 - Nonrheumatic aortic (valve) stenosis (7) JAVIER (acute kidney injury) Current visit: Yes Status: Resolved Category: Medical Code(s): N17.9 - Acute kidney failure, unspecified (8) Anemia Current visit: Yes Status: Acute Qualifiers: Iron deficiency anemia type: chronic blood loss Qualified Code(s): D64.9 - Anemia, unspecified Category: Medical Code(s): D64.9 - Anemia, unspecified (9) Fall Current visit: Yes Status: Acute Qualifiers: Encounter type: initial encounter Qualified Code(s): W19.XXXA - Unspecified fall, initial encounter Category: Medical Code(s): W19.XXXA - Unspecified fall, initial encounter (10) Cellulitis Current visit: No Status: Acute Qualifiers: Site of cellulitis: extremity Site of cellulitis of extremity: lower e xtremity Laterality: right Qualified Code(s): L03.115 - Cellulitis of right lower limb Category: Medical Code(s): L03.90 - Cellulitis, unspecified (11) Hyperkalemia Current visit: Yes Status: Acute Category: Medical Code(s): E87.5 - Hyperkalemia (12) Chronic kidney disease Current visit: Yes Status: Acute Category: Medical Code(s): N18.9 - Chronic kidney disease, unspecified (13) CHF (congestive heart failure) Current visit: Yes Status: Acute Qualifiers: Heart failure type: diastolic Category: Medical Code(s): I50.9 - Heart failure, unspecified (14) COPD (chronic obstructive pulmonary disease) Current visit: Yes Status: Acute Category: Medical Code(s): J44.9 - Chronic obstructive pulmonary disease, unspecified (15) Left lower lobe pneumonia Current visit: Yes Status: Acute Category: Medical Code(s): J18.9 - Pneumonia, unspecified organism - Assessment and plan all Dx Assessment and Plan for all problems:: BASED ON PATIENT FACTORS AND VANCOMYCIN TROUGH LEVEL, RECOMMEND CONTINUING VANCOMYCIN 2 GM IV Q24H. PHARMACY WILL CONTINUE TO MONITOR DAILY AND ADJUST APPROPRIATE.
[2019-11-10 16:23] LABS: ABG Base Excess 10.2 mmol/L (-2.4-2.3); ABG HCO3 35.5 mmhg (22.0-26.0); ABG Oxygen Saturation 86 % (90-100); ABG PH 7.37 mmol/L (7.35-7.45); ABG PO2 50.4 mmhg (80-100); ABG TCO2 37.5 mmhg (23-27)
[2019-11-10 16:24] LABS: Allen's Test ACCEPTABLE; Oxygen 36 %
[2019-11-11 05:57] LABS: ABG Oxygen Saturation 93 % (90-100); ABG PH 7.39 mmol/L (7.35-7.45); ABG TCO2 36.8 mmhg (23-27)
[2019-11-11 06:01] LABS: Oxygen 40 %
[2019-11-11 06:02] LABS: Allen's Test Patient Unable; Tidal Volume 705
[2019-11-11 06:19] LABS: Basophils # 0.1 K/mm3 (0-0.2); Basophils % 0.9 % (0.1-2.0); Eosinophils # 0.6 K/mm3 (0.0-0.4); Eosinophils % 6.5 % (0.1-12.0); Hematocrit 37.6 % (42.0-52.0); Hemoglobin 11.5 g/dL (14.1-18.0); Lymphocytes # 0.8 K/mm3 (0.7-4.5); Lymphocytes % 8.3 % (10-50); Mean Corpuscular HGB Conc 30.6 g/dL (31.8-35.4); Mean Corpuscular Volume 91.3 fl (80-94); Mean Platelet Volume 7.5 fl (7.4-10.4); Monocytes # 0.7 K/mm3 (0.1-1.0); Monocytes % 7.6 % (1.7-9.3); Neutrophils # 6.9 K/mm3 (1.8-7.8); Neutrophils % 76.6 % (37.0-80.0); Platelet Count 367 K/mm3 (142-424); Red Blood Count 4.12 M/mm3 (4.60-6.20); Red Cell Distribution Width 14.7 % (11.5-17.5)
[2019-11-11 06:24] LABS: Anion Gap 9.6 mEq/L (5-15)
--- NOTE | 2019-11-11 08:15 | Progress Note ---
Internal Medicine - PN: Subj *Date: 11/11/19 *Time: 08:11 Interval history: Patient developed confusion yesterday afternoon along with increased work of breathing. Patient was placed back on BiPAP after an ABG revealed recurrence of both hypoxemia and hypercapnia. Patient remained on BiPAP overnight. This morning the patient is more awake and alert but unable to maintain his O2 sats while eating. Patient denies pain. He reports improvement in shortness of breath compared to yesterday. He was also placed in a soft cervical collar to try to aid with his head and neck positioning from muscle spasm related to his humeral fracture. Exam Vital signs and Labs for Last 24 Hours: Temp Pulse Resp BP Pulse Ox 99.2 F 105 H 25 H 161/70 H 77 L 11/11/19 04:00 11/11/19 04:00 11/11/19 04:00 11/11/19 04:00 11/11/19 07:39 Laboratory Results - last 24 hr 11/10/19 12:03: Vancomycin Trough 14.1 H 11/10/19 16:15: Specimen Source Left radial, O2 % 36, ABG pH 7.37, ABG pCO2 63.0 H, ABG pO2 50.4 L, ABG HCO3 35.5 H, ABG Total CO2 37.5 H, ABG O2 Saturation 86 L*, ABG Base Excess 10.2 H, Gregory Test Acceptable 11/11/19 05:35: WBC 9.0, RBC 4.12 L, Hgb 11.5 L, Hct 37.6 L, MCV 91.3, MCH 27.9, MCHC 30.6 L, RDW 14.7, Plt Count 367, MPV 7.5, Neut % (Auto) 76.6, Lymph % (Auto) 8.3 L, [place] % (Auto) 7.6, Eos % (Auto) 6.5, Baso % (Auto) 0.9, Neut # (Auto) 6.9, Lymph # (Auto) 0.8, [place] # (Auto) 0.7, Eos # (Auto) 0.6 H, Baso # (Auto) 0.1 11/11/19 05:35: Sodium 138, Potassium 4.6, Chloride 94 L, Carbon Dioxide 39 H, Anion Gap 9.6, BUN 39 H, Creatinine 1.20, Estimated Creat Clear 69, Estimated GFR 58 L, Est GFR ( Amer) 70, Glucose 138 H, Calcium 9.0 11/11/19 06:00: Specimen Source Left radial, O2 % 40, ABG pH 7.39, ABG pCO2 59.0 H, ABG pO2 64.0 L, ABG HCO3 35.0 H, ABG Total CO2 36.8 H, ABG O2 Saturation 93, ABG Base Excess 10.0 H, Gregory Test Patient unable, Tidal Volume 705 I & O for Last 24 hours: Intake & Output 11/08/19 11/09/19 11/10/19 11/11/19 11:59 11:59 11:59 11:59 Intake Total 450 / 450 1410 / 1410 1250 / 1250 370 / 370 Output Total 1000 / 1000 201 / 201 1075 / 1075 750 / 750 Balance -550 / -550 1209 / 1209 175 / 175 -380 / -380 Weight 218 lb 7 oz 224 lb 217 lb 7 oz 222 lb 4 oz Narrative: Patient is oriented to place and person. Lungs have faint rales at the left lung base but improved since yesterday. There is faint expiratory wheezing heard both anteriorly and posteriorly. Heart has a regular rate and rhythm. Abdomen is soft. SCDs are in place on his lower extremities and there is no pedal edema. Chest x-ray has shown improvement in patient's left lower lobe pneumonia ABG has shown slight improvement in hypercapnia and mild improvement in hypoxem ia. pH is normal Assessment and Plan (1) MRSA pneumonia Current visit: Yes Status: Acute Category: Medical Code(s): J15.212 - Pneumonia due to Methicillin resistant Staphylococcus aureus Continue IV vancomycin (2) Acute respiratory failure with hypoxia and hypercapnia Current visit: Yes Status: Acute Category: Medical Code(s): J96.01 - Acute respiratory failure with hypoxia; J96.02 - Acute respiratory failure with hypercapnia Continue BiPAP unless patient is eating. Review of office records indicates 3 years ago patient was referred for sleep study due to persistent daytime somnolence but failed to follow-up with polysomnography. During hospitalization patient has repeatedly been witnessed having rather slow respiratory rate. Initially this was attributed to use of narcotics to treat pain from his humeral fracture. I suspect patient may have underlying sleep disorder. Continue BiPAP during the day for now. Once patient has been weaned back to nasal cannula I do believe he would benefit from continued use of BiPAP/CPAP at night (3) History of atrial fibrillation Current visit: No Status: Acute Category: Medical Code(s): Z86.79 - Personal history of other diseases of the circulatory system (4) Shoulder fracture, right Current visit: Yes Status: Acute Qualifiers: Encounter type: initial encounter Fracture type: closed Qualified Code(s): S42.91XA - Fracture of right shoulder girdle, part unspecified, initial encounter for closed fracture Category: Medical Code(s): S42.91XA - Fracture of right shoulder girdle, part unspecified, initial encounter for closed fracture (5) HHD (hypertensive heart disease) Current visit: Yes Status: Acute Category: Medical Code(s): I11.9 - Hypertensive heart disease without heart failure (6) Aortic stenosis Current visit: Yes Status: Acute Category: Medical Code(s): I35.0 - Nonrheumatic aortic (valve) stenosis (7) JAVIER (acute kidney injury) Current visit: Yes Status: Resolved Category: Medical Code(s): N17.9 - Acute kidney failure, unspecified (8) Anemia Current visit: Yes Status: Acute Qualifiers: Iron deficiency anemia type: chronic blood loss Qualified Code(s): D64.9 - Anemia, unspecified Category: Medical Code(s): D64.9 - Anemia, unspecified (9) Fall Current visit: Yes Status: Acute Qualifiers: Encounter type: initial encounter Qualified Code(s): W19.XXXA - Unspecified fall, initial encounter Category: Medical Code(s): W19.XXXA - Unspecified fall, initial encounter (10) Cellulitis Current visit: No Status: Acute Qualifiers: Site of cellulitis: extremity Site of cellulitis of extremity: lower extremity Laterality: right Qualified Code(s): L03.115 - Cellulitis of right lower limb Category: Medical Code(s): L03.90 - Cellulitis, unspecified (11) Hyperkalemia Current visit: Yes Status: Acute Category: Medical Code(s): E87.5 - Hyperkalemia (12) Chronic kidney disease Current visit: Yes Status: Acute Category: Medical Code(s): N18.9 - Chronic kidney disease, unspecified (13) CHF (congestive heart failure) Current visit: Yes Status: Acute Qualifiers: Heart failure type: diastolic Category: Medical Code(s): I50.9 - Heart failure, unspecified (14) COPD (chronic obstructive pulmonary disease) Current visit: Yes Status: Acute Category: Medical Code(s): J44.9 - Chronic obstructive pulmonary disease, unspecified (15) Left lower lobe pneumonia Current visit: Yes Status: Acute Category: Medical Code(s): J18.9 - Pneumonia, unspecified organism
[2019-11-12 06:05] LABS: Basophils # 0.1 K/mm3 (0-0.2); Basophils % 0.9 % (0.1-2.0); Eosinophils # 0.5 K/mm3 (0.0-0.4); Eosinophils % 6.6 % (0.1-12.0); Hemoglobin 10.9 g/dL (14.1-18.0); Lymphocytes # 0.9 K/mm3 (0.7-4.5); Lymphocytes % 12.4 % (10-50); Mean Corpuscular HGB Conc 30.1 g/dL (31.8-35.4); Mean Platelet Volume 7.6 fl (7.4-10.4); Monocytes # 0.7 K/mm3 (0.1-1.0); Monocytes % 9.7 % (1.7-9.3); Neutrophils # 4.9 K/mm3 (1.8-7.8); Neutrophils % 70.4 % (37.0-80.0); Platelet Count 307 K/mm3 (142-424); Red Blood Count 3.87 M/mm3 (4.60-6.20)
[2019-11-12 06:22] LABS: Calcium 8.7 mg/dl (8.4-10.2)
[2019-11-12 06:30] LABS: Anion Gap 4.4 mEq/L (5-15)
[2019-11-12 06:32] LABS: ABG Base Excess 10.1 mmol/L (-2.4-2.3); ABG HCO3 34.8 mmhg (22.0-26.0); ABG Oxygen Saturation 92 % (90-100); ABG PH 7.41 mmol/L (7.35-7.45); ABG PO2 60.9 mmhg (80-100); ABG TCO2 36.6 mmhg (23-27)
[2019-11-12 06:34] LABS: Oxygen 40 %; PEEP 8
[2019-11-12 06:35] LABS: Allen's Test ACCEPTABLE
[2019-11-12 06:39] LABS: ABG PCO2 56.6 mmhg (35.0-45.0)
--- NOTE | 2019-11-12 07:55 | Progress Note ---
Internal Medicine - PN: Subj *Date: 11/12/19 *Time: 07:51 Interval history: Patient has remained stable over the last 24 hours. BiPAP is been removed for brief periods of time to allow patient to eat and he has tolerated brief transitions to supplemental oxygen at 4 L/min. He remained on BiPAP overnight and is no longer having episodes of confusion. Bed positioning remains a challenge as patient is slouched down in the bed with head turned to the left and neck flexed of the right despite use of a soft cervical collar. Patient finds a soft cervical collar uncomfortable and asked to be removed at times overnight. He denies shortness of breath this morning. Exam Vital signs and Labs for Last 24 Hours: Temp Pulse Resp BP Pulse Ox 99.4 F 76 20 155/63 H 98 11/12/19 04:00 11/12/19 06:00 11/12/19 06:00 11/12/19 06:00 11/12/19 06:00 Laboratory Results - last 24 hr 11/12/19 05:36: WBC 7.0, RBC 3.87 L, Hgb 10.9 L, Hct 36.0 L, MCV 93.0, MCH 28.0, MCHC 30.1 L, RDW 15.0, Plt Count 307, MPV 7.6, Neut % (Auto) 70.4, Lymph % (Auto) 12.4, [place] % (Auto) 9.7 H, Eos % (Auto) 6.6, Baso % (Auto) 0.9, Neut # (Auto) 4.9, Lymph # (Auto) 0.9, [place] # (Auto) 0.7, Eos # (Auto) 0.5 H, Baso # (Auto) 0.1 11/12/19 05:36: Sodium 136, Potassium 4.4, Chloride 95 L, Carbon Dioxide 41 H*, Anion Gap 4.4 L, BUN 34 H, Creatinine 1.20, Estimated Creat Clear 68, Estimated GFR 58 L, Est GFR ( Amer) 70, Glucose 122 H, Calcium 8.7 11/12/19 06:00: Specimen Source Left radial, O2 % 40, ABG pH 7.41, ABG pCO2 56.6 H, ABG pO2 60.9 L, ABG HCO3 34.8 H, ABG Total CO2 36.6 H, ABG O2 Saturation 92, ABG Base Excess 10.1 H, Gregory Test Acceptable, PEEP 8 I & O for Last 24 hours: Intake & Output 11/09/19 11/10/19 11/11/19 11/12/19 11:59 11:59 11:59 11:59 Intake Total 1410 / 1410 1250 / 1250 370 / 370 250 / 250 Output Total 201 / 201 1075 / 1075 750 / 750 800 / 800 Balance 1209 / 1209 175 / 175 -380 / -380 -550 / -550 Weight 224 lb 217 lb 7 oz 222 lb 4 oz 218 lb 7.649 oz Narrative: Patient is resting in bed and shows no signs of respiratory distress. He awakens easily. He does communicate through the BiPAP. Lung exam reveals faint crackles in the left base but lungs are otherwise clear. Heart has a regular rate and rhythm. Abdomen is soft. Lower extremities have no edema and SCDs are in place. ABG reviewed. PCO2 has decreased slightly. pH remains within a normal limit. PO2 remains low. Assessment and Plan (1) MRSA pneumonia Current visit: Yes Status: Acute Category: Medical Code(s): J15.212 - Pneumonia due to Methicillin resistant Staphylococcus aureus (2) Acute respiratory failure with hypoxia and hypercapnia Current visit: Yes Status: Acute Category: Medical Code(s): J96.01 - Acute respiratory failure with hypoxia; J96.02 - Acute respiratory failure with hyp ercapnia (3) History of atrial fibrillation Current visit: No Status: Acute Category: Medical Code(s): Z86.79 - Personal history of other diseases of the circulatory system (4) Shoulder fracture, right Current visit: Yes Status: Acute Qualifiers: Encounter type: initial encounter Fracture type: closed Qualified Code(s): S42.91XA - Fracture of right shoulder girdle, part unspecified, initial encounter for closed fracture Category: Medical Code(s): S42.91XA - Fracture of right shoulder girdle, part unspecified, initial encounter for closed fracture (5) HHD (hypertensive heart disease) Current visit: Yes Status: Acute Category: Medical Code(s): I11.9 - Hypertensive heart disease without heart failure (6) Aortic stenosis Current visit: Yes Status: Acute Category: Medical Code(s): I35.0 - Nonrheumatic aortic (valve) stenosis (7) JAVIER (acute kidney injury) Current visit: Yes Status: Resolved Category: Medical Code(s): N17.9 - Acute kidney failure, unspecified (8) Anemia Current visit: Yes Status: Acute Qualifiers: Iron deficiency anemia type: chronic blood loss Qualified Code(s): D64.9 - Anemia, unspecified Category: Medical Code(s): D64.9 - Anemia, unspecified (9) Fall Current visit: Yes Status: Acute Qualifiers: Encounter type: initial encounter Qualified Code(s): W19.XXXA - Unspecified fall, initial encounter Category: Medical Code(s): W19.XXXA - Unspecified fall, initial encounter (10) Cellulitis Current visit: No Status: Acute Qualifiers: Site of cellulitis: extremity Site of cellulitis of extremity: lower extremity Laterality: right Qualified Code(s): L03.115 - Cellulitis of right lower limb Category: Medical Code(s): L03.90 - Cellulitis, unspecified (11) Hyperkalemia Current visit: Yes Status: Acute Category: Medical Code(s): E87.5 - Hyperkalemia (12) Chronic kidney disease Current visit: Yes Status: Acute Category: Medical Code(s): N18.9 - Chronic kidney disease, unspecified (13) CHF (congestive heart failure) Current visit: Yes Status: Acute Qualifiers: Heart failure type: diastolic Category: Medical Code(s): I50.9 - Heart failure, unspecified (14) COPD (chronic obstructive pulmonary disease) Current visit: Yes Status: Acute Category: Medical Code(s): J44.9 - Chronic obstructive pulmonary disease, unspecified (15) Left lower lobe pneumonia Current visit: Yes Status: Acute Category: Medical Code(s): J18.9 - Pneumonia, unspecified organism (16) Chronic respiratory failure Current visit: Yes Status: Acute Category: Medical Code(s): J96.10 - Chronic respiratory failure, unspecified whether with hypoxia or hypercapnia - Assessment and plan all Dx Assessment and Plan for all problems:: 1. Continue vancomycin for MRSA pneumonia 2. Acute kidney injury has resolved, continue to monitor renal function 3. Congestive heart failure has resolved and patient is maintaining a negative fluid balance 4. Patient's acute on chronic respiratory failure is proving to be a challenge. Because of the severe weakness from the patient's illness along with underlying COPD, suspected sleep apnea, and his inability to maintain an optimal position within the bed patient's respiratory failure is complicating all aspects of his care. He is unable to participate with physical therapy nor sit up in the chair. I am unsure if patient is a candidate for pulmonary rehab inpatient stay but this will be investigated.
--- NOTE | 2019-11-12 09:36 | Progress Note ---
Internal Medicine - PN: Subj *Date: 11/12/19 *Time: 09:35 Exam Vital signs and Labs for Last 24 Hours: Temp Pulse Resp BP Pulse Ox 97.7 F 76 20 155/63 H 98 11/12/19 07:54 11/12/19 06:00 11/12/19 06:00 11/12/19 06:00 11/12/19 06:00 Laboratory Results - last 24 hr 11/12/19 05:36: WBC 7.0, RBC 3.87 L, Hgb 10.9 L, Hct 36.0 L, MCV 93.0, MCH 28.0, MCHC 30.1 L, RDW 15.0, Plt Count 307, MPV 7.6, Neut % (Auto) 70.4, Lymph % (Auto) 12.4, [place] % (Auto) 9.7 H, Eos % (Auto) 6.6, Baso % (Auto) 0.9, Neut # (Auto) 4.9, Lymph # (Auto) 0.9, [place] # (Auto) 0.7, Eos # (Auto) 0.5 H, Baso # (Auto) 0.1 11/12/19 05:36: Sodium 136, Potassium 4.4, Chloride 95 L, Carbon Dioxide 41 H*, Anion Gap 4.4 L, BUN 34 H, Creatinine 1.20, Estimated Creat Clear 68, Estimated GFR 58 L, Est GFR ( Amer) 70, Glucose 122 H, Calcium 8.7 11/12/19 06:00: Specimen Source Left radial, O2 % 40, ABG pH 7.41, ABG pCO2 56.6 H, ABG pO2 60.9 L, ABG HCO3 34.8 H, ABG Total CO2 36.6 H, ABG O2 Saturation 92, ABG Base Excess 10.1 H, Gregory Test Acceptable, PEEP 8 I & O for Last 24 hours: Intake & Output 11/09/19 11/10/19 11/11/19 11/12/19 23:59 23:59 23:59 23:59 Intake Total 1810 / 1810 610 / 610 260 / 260 Output Total 976 / 976 300 / 300 750 / 750 800 / 800 Balance 834 / 834 310 / 310 -490 / -490 -800 / -800 Weight 101.605 kg 98.628 kg 100.811 kg 99.1 kg Assessment and Plan (1) MRSA pneumonia Current visit: Yes Status: Acute Category: Medical Code(s): J15.212 - Pneumonia due to Methicillin resistant Staphylococcus aureus (2) Acute respiratory failure with hypoxia and hypercapnia Current visit: Yes Status: Acute Category: Medical Code(s): J96.01 - Acute respiratory failure with hypoxia; J96.02 - Acute respiratory failure with hypercapnia (3) History of atrial fibrillation Current visit: No Status: Acute Category: Medical Code(s): Z86.79 - Personal history of other diseases of the circulatory system (4) Shoulder fracture, right Current visit: Yes Status: Acute Qualifiers: Encounter type: initial encounter Fracture type: closed Qualified Code(s): S42.91XA - Fracture of right shoulder girdle, part unspecified, initial encounter for closed fracture Category: Medical Code(s): S42.91XA - Fracture of right shoulder girdle, part unspecified, initial encounter for closed fracture (5) HHD (hypertensive heart disease) Current visit: Yes Status: Acute Category: Medical Code(s): I11.9 - Hyper tensive heart disease without heart failure (6) Aortic stenosis Current visit: Yes Status: Acute Category: Medical Code(s): I35.0 - Nonrheumatic aortic (valve) stenosis (7) JAVIER (acute kidney injury) Current visit: Yes Status: Resolved Category: Medical Code(s): N17.9 - Acute kidney failure, unspecified (8) Anemia Current visit: Yes Status: Acute Qualifiers: Iron deficiency anemia type: chronic blood loss Qualified Code(s): D64.9 - Anemia, unspecified Category: Medical Code(s): D64.9 - Anemia, unspecified (9) Fall Current visit: Yes Status: Acute Qualifiers: Encounter type: initial encounter Qualified Code(s): W19.XXXA - Unspecified fall, initial encounter Category: Medical Code(s): W19.XXXA - Unspecified fall, initial encounter (10) Cellulitis Current visit: No Status: Acute Qualifiers: Site of cellulitis: extremity Site of cellulitis of extremity: lower extremity Laterality: right Qualified Code(s): L03.115 - Cellulitis of right lower limb Category: Medical Code(s): L03.90 - Cellulitis, unspecified (11) Hyperkalemia Current visit: Yes Status: Acute Category: Medical Code(s): E87.5 - Hyperkalemia (12) Chronic kidney disease Current visit: Yes Status: Acute Category: Medical Code(s): N18.9 - Chronic kidney disease, unspecified (13) CHF (congestive heart failure) Current visit: Yes Status: Acute Qualifiers: Heart failure type: diastolic Category: Medical Code(s): I50.9 - Heart failure, unspecified (14) COPD (chronic obstructive pulmonary disease) Current visit: Yes Status: Acute Category: Medical Code(s): J44.9 - Chronic obstructive pulmonary disease, unspecified (15) Left lower lobe pneumonia Current visit: Yes Status: Acute Category: Medical Code(s): J18.9 - Pneumonia, unspecified organism (16) Chronic respiratory failure Current visit: Yes Status: Acute Category: Medical Code(s): J96.10 - Chronic respiratory failure, unspecified whether with hypoxia or hypercapnia The patient's infection will respond to the chosen ABx?: Yes Is the patient receiving the right drug, dose, and route?: Yes Could a more targeted ABx be ordered?: No (MRSA POSITIVE, AFEBRILE, WBC WNL)
[2019-11-13 06:09] LABS: Basophils # 0.1 K/mm3 (0-0.2); Basophils % 0.9 % (0.1-2.0); Eosinophils # 0.5 K/mm3 (0.0-0.4); Eosinophils % 6.1 % (0.1-12.0); Hematocrit 34.7 % (42.0-52.0); Hemoglobin 10.6 g/dL (14.1-18.0); Lymphocytes # 0.9 K/mm3 (0.7-4.5); Lymphocytes % 12.4 % (10-50); Mean Corpuscular HGB Conc 30.6 g/dL (31.8-35.4); Mean Platelet Volume 7.3 fl (7.4-10.4); Monocytes # 0.7 K/mm3 (0.1-1.0); Monocytes % 9.2 % (1.7-9.3); Neutrophils # 5.4 K/mm3 (1.8-7.8); Neutrophils % 71.3 % (37.0-80.0); Platelet Count 318 K/mm3 (142-424); Red Blood Count 3.86 M/mm3 (4.60-6.20); Red Cell Distribution Width 14.6 % (11.5-17.5); White Blood Count 7.6 K/mm3 (4.8-10.8)
[2019-11-13 06:12] LABS: Calcium 8.5 mg/dl (8.4-10.2)
[2019-11-13 07:01] LABS: Anion Gap 12.2 mEq/L (5-15)
--- NOTE | 2019-11-13 07:54 | Progress Note ---
Internal Medicine - PN: Subj *Date: 11/13/19 *Time: 07:51 Interval history: Patient denies pain. He denies shortness of breath. He is aggravated by the BiPAP. He is maintained sats generally in the high 80s to mid 90s with use of nasal cannula although will seem to become tired after prolonged uses of nasal cannula. Patient will maintain sats in the mid to high 90s on BiPAP at night. He is also aggravated by use of the soft cervical collar. Nursing staff reports patient seems to be doing better with positioning of his head and neck. Exam Vital signs and Labs for Last 24 Hours: Temp Pulse Resp BP Pulse Ox 98.5 F 80 26 H 141/75 H 90 L 11/13/19 04:00 11/13/19 06:00 11/13/19 06:00 11/13/19 06:00 11/13/19 06:15 Laboratory Results - last 24 hr 11/13/19 05:26: WBC 7.6, RBC 3.86 L, Hgb 10.6 L, Hct 34.7 L, MCV 90.0, MCH 27.5, MCHC 30.6 L, RDW 14.6, Plt Count 318, MPV 7.3 L, Neut % (Auto) 71.3, Lymph % (Auto) 12.4, [place] % (Auto) 9.2, Eos % (Auto) 6.1, Baso % (Auto) 0.9, Neut # (Auto) 5.4, Lymph # (Auto) 0.9, [place] # (Auto) 0.7, Eos # (Auto) 0.5 H, Baso # (Auto) 0.1 11/13/19 05:26: Sodium 137, Potassium 4.2, Chloride 92 L, Carbon Dioxide 37 H, Anion Gap 12.2, BUN 33 H, Creatinine 1.20, Estimated Creat Clear 68, Estimated GFR 58 L, Est GFR ( Amer) 70, Glucose 121 H, Calcium 8.5 I & O for Last 24 hours: Intake & Output 11/10/19 11/11/19 11/12/19 11/13/19 11:59 11:59 11:59 11:59 Intake Total 1250 / 1250 370 / 370 730 / 730 850 / 850 Output Total 1075 / 1075 750 / 750 800 / 800 1550 / 1550 Balance 175 / 175 -380 / -380 -70 / -70 -700 / -700 Weight 217 lb 7 oz 222 lb 4 oz 218 lb 7.649 oz 219 lb 9 oz Narrative: Patient is sitting up in bed although his posture remains quite slouched. Head is turned slightly to the left with neck and right lateral flexion. The soft cervical collar is in place this morning. Patient is oriented to person and place. Lungs are distant with faint expiratory wheeze. Heart has a irregular rate and rhythm. He is noted to have occasional PVC on telemetry monitoring. Abdomen is soft. Lower extremities have no edema. Assessment and Plan (1) MRSA pneumonia Current visit: Yes Status: Acute Category: Medical Code(s): J15.212 - Pneumonia due to Methicillin resistant Staphylococcus aureus (2) Acute respiratory failure with hypoxia and hypercapnia Current visit: Yes Status: Acute Category: Medical Code(s): J96.01 - Acute respiratory failure with hypoxia; J96.02 - Acute respiratory failure with hypercapnia (3) History of atrial fibrillation Current visit: No Status: Acute Category: Medical Code(s): Z86.79 - Personal history of other diseases of the circulatory system (4) Shoulder fracture, right Current visit: Yes Status: Acute Qualifiers: Encounter type: initial encounter Fracture type: closed Qualified Code(s): S42.91XA - Fracture of right shoulder girdle, part unspecified, initial encounter for closed fracture Category: Medical Code(s): S42.91XA - Fracture of right shoulder girdle, part unspecified, initial encounter for closed fracture (5) HHD (hypertensive heart disease) Current visit: Yes Status: Acute Category: Medical Code(s): I11.9 - Hypertensive heart disease without heart failure (6) Aortic stenosis Current visit: Yes Status: Acute Category: Medical Code(s): I35.0 - Nonrheumatic aortic (valve) stenosis (7) JAVIER (acute kidney injury) Current visit: Yes Status: Resolved Category: Medical Code(s): N17.9 - Acute kidney failure, unspecified (8) Anemia Current visit: Yes Status: Acute Qualifiers: Iron deficiency anemia type: chronic blood loss Qualified Code(s): D64.9 - Anemia, unspecified Category: Medical Code(s): D64.9 - Anemia, unspecified (9) Fall Current visit: Yes Status: Acute Qualifiers: Encounter type: initial encounter Qualified Code(s): W19.XXXA - Unspecified fall, initial encounter Category: Medical Code(s): W19.XXXA - Unspecified fall, initial encounter (10) Cellulitis Current visit: No Status: Acute Qualifiers: Site of cellulitis: extremity Site of cellulitis of extremity: lower extremity Laterality: right Qualified Code(s): L03.115 - Cellulitis of right lower limb Category: Medical Code(s): L03.90 - Cellulitis, unspecified (11) Hyperkalemia Current visit: Yes Status: Acute Category: Medical Code(s): E87.5 - Hyperkalemia (12) Chronic kidney disease Current visit: Yes Status: Acute Category: Medical Code(s): N18.9 - Chronic kidney disease, unspecified (13) CHF (congestive heart failure) Current visit: Yes Status: Acute Qualifiers: Heart failure type: diastolic Category: Medical Code(s): I50.9 - Heart failure, unspecified (14) COPD (chronic obstructive pulmonary disease) Current visit: Yes Status: Acute Category: Medical Code(s): J44.9 - Chronic obstructive pulmonary disease, unspecified (15) Left lower lobe pneumonia Current visit: Yes Status: Acute Category: Medical Code(s): J18.9 - Pneumonia, unspecified organism (16) Chronic respiratory failure Current visit: Yes Status: Acute Category: Medical Code(s): J96.10 - Chronic respiratory failure, unspecified whether with hypoxia or hypercapnia - Assessment and plan all Dx Assessment and Plan for all problems:: 1. Tinea vancomycin to finish a course of antibiotics for his MRSA pneumonia 2. Continue use of BiPAP at night with weaning to nasal cannula during the day. 3. Patient has faint wheezing this morning and I will schedule his neb treatments. He will be given ipratropium and Xopenex to avoid cardiac stimulation 4. Add prednisone 20 mg daily 5. Will get patient out of bed to chair today. Patient is requested his shoes to be applied for standing as he feels more comfortable with shoes on then in sock feet. 6. Anemia remained stable 7. Acute kidney injury has resolved and his return to normal renal function
--- NOTE | 2019-11-13 13:30 | Pharmacy Consult Notes ---
- Pharmacy Consult Date: 11/13/19 Time: 13:29 Referring provider: DR. EVANS Reason for Consult:: VANCOMYCIN TROUGH LEVEL Allergies and ADEs:: Allergies Allergy/AdvReac Type Severity Reaction Status Date / Time codeine [CODEINE] Allergy Unknown Verified 11/02/19 05:01 Home Medications:: Home Medications Medication Instructions Recorded Confirmed Type Amlodipine Besylate [Amlodipine 10 mg PO DAILY 09/23/17 11/02/19 History 10mg Tab] Pantoprazole Sodium [Pantoprazole 40 mg PO DAILY 09/23/17 11/02/19 History 20mg Tab] lisinopriL [Lisinopril 40mg Tablet] 40 mg PO DAILY 09/23/17 11/02/19 History Ferrous Sulfate [Iron] 65 mg PO DAILY 03/04/18 11/02/19 History Furosemide [Furosemide 40MG tAB] 40 mg PO BID 03/04/18 11/02/19 History Metoprolol Tartrate 50 mg PO DAILY 03/05/18 11/02/19 History Sulfamethoxazole/Trimethoprim 1 each PO BID #14 tab 10/26/19 11/02/19 Rx [Bactrim DS tablet] Height: 1.88 m Weight: 99.592 kg Laboratory Results:: Laboratory Results - last 24 hr 11/13/19 05:26: WBC 7.6, RBC 3.86 L, Hgb 10.6 L, Hct 34.7 L, MCV 90.0, MCH 27.5, MCHC 30.6 L, RDW 14.6, Plt Count 318, MPV 7.3 L, Neut % (Auto) 71.3, Lymph % (Auto) 12.4, [place] % (Auto) 9.2, Eos % (Auto) 6.1, Baso % (Auto) 0.9, Neut # (Auto) 5.4, Lymph # (Auto) 0.9, [place] # (Auto) 0.7, Eos # (Auto) 0.5 H, Baso # (Auto) 0.1 11/13/19 05:26: Sodium 137, Potassium 4.2, Chloride 92 L, Carbon Dioxide 37 H, Anion Gap 12.2, BUN 33 H, Creatinine 1.20, Estimated Creat Clear 68, Estimated GFR 58 L, Est GFR ( Amer) 70, Glucose 121 H, Calcium 8.5 11/13/19 12:00: Vancomycin Trough 21.9 H Medical History: Reports:: Arrhythmia, Atrial Fibrillation (Bruxism), Cancer (skin), Congestive Heart Failure (Diastolic), Hypertension, Palpitations Denies:: Diabetes Mellitus Type 1, Diabetes Mellitus Type 2, Internal Pacemaker, Lung Disease, MRSA, Seizures Assessment and Plan (1) MRSA pneumonia Current visit: Yes Status: Acute Category: Medical Code(s): J15.212 - Pneumonia due to Methicillin resistant Staphylococcus aureus (2) Acute respiratory failure with hypoxia and hypercapnia Current visit: Yes Status: Acute Category: Medical Code(s): J96.01 - Acute respiratory failure with hypoxia; J96.02 - Acute respiratory failure with hypercapnia (3) History of atrial fibrillation Current visit: No Status: Acute Category: Medical Code(s): Z86.79 - Personal history of other diseases of the circulatory system (4) Shoulder fracture, right Current visit: Yes Status: Acute Qualifiers: Encounter type: initial encounter Fracture type: closed Qualified Code(s): S42.91XA - Fracture of right shoulder girdle, part unspecified, initial encounter for closed fracture Category: Medical Code(s): S42.91XA - Fracture of right shoulder girdle, part unspecified, initial encounter for closed fracture (5) HHD (hypertensive heart disease) Current visit: Yes Status: Acute Category: Medical Code(s): I11.9 - Hypertensive heart disease without heart failure (6) Aortic stenosis Current visit: Yes Status: Acute Category: Medical Code(s): I35.0 - Nonrheumatic aortic (valve) stenosis (7) JAVIER (acute kidney injury) Current visit: Yes Status: Resolved Category: Medical Code(s): N17.9 - Acute kidney failure, unspecified (8) Anemia Current visit: Yes Status: Acute Qualifiers: Iron deficiency anemia type: chronic blood loss Qualified Code(s): D64.9 - Anemia, unspecified Category: Medical Code(s): D64.9 - Anemia, unspecified (9) Fall Current visit: Yes Status: Acute Qualifiers: Encounter type: initial encounter Qualified Code(s): W19.XXXA - Unspecified fall, initial encounter Category: Medical Code(s): W19.XXXA - Unspecified fall, initial encounter (10) Cellulitis Current visit: No Status: Acute Qualifiers: Site of cellulitis: extremity Site of cellulitis of extremity: lower extremity Laterality: right Qualified Code(s): L03.115 - Cellulitis of right lower limb Category: Medical Code(s): L03.90 - Cellulitis, unspecified (11) Hyperkalemia Current visit: Yes Status: Acute Category: Medical Code(s): E87.5 - Hyperkalemia (12) Chronic kidney disease Current visit: Yes Status: Acute Category: Medical Code(s): N18.9 - Chronic kidney disease, unspecified (13) CHF (congestive heart failure) Current visit: Yes Status: Acute Qualifiers: Heart failure type: diastolic Category: Medical Code(s): I50.9 - Heart failure, unspecified (14) COPD (chronic obstructive pulmonary disease) Current visit: Yes Status: Acute Category: Medical Code(s): J44.9 - Chronic obstructive pulmonary disease, unspecified (15) Left lower lobe pneumonia Current visit: Yes Status: Acute Category: Medical Code(s): J18.9 - Pneumonia, unspecified organism (16) Chronic respiratory failure Current visit: Yes Status: Acute Category: Medical Code(s): J96.10 - Chronic respiratory failure, unspecified whether with hypoxia or hypercapnia - Assessment and plan all Dx Assessment and Plan for all problems:: BASED ON PATIENT FACTORS AND VANCOMYCIN TROUGH LEVEL, RECOMMEND LOWERING DOSE TO VANCOMYCIN 1500 MG IV Q24H. PHARMACY WILL CONTINUE TO MONITOR DAILY AND ADJUST APPROPRIATE.
--- NOTE | 2019-11-13 17:05 | Progress Note ---
Subjective Date: 11/13/19 Time: 17:00 Principal diagnosis: R proximal humerus fracture Interval history: The patient is feeling better this afternoon, maintaining ~93% O2 saturation on 3L nasal cannula. R shoulder pain present, ecchymosis resolved, increased swelling in distal extremity. PN: Obj Ex Vital signs: Temp Pulse Resp BP Pulse Ox 98.0 F 90 20 134/66 91 L 11/13/19 15:52 11/13/19 16:00 11/13/19 14:00 11/13/19 14:00 11/13/19 14:00 - Constitutional no acute distress - Routine Extremities Exam Comments: R shoulder ecchymosis resolved unable to lift R arm at shoulder due to pain FROM R elbow/wrist/forearm/hand; no tenderness AIN/PIN/ulnar nerves motor intact RUE SILT distally m/r/u distributions RUE palpable radial pulse R wrist, BCR all digits increased soft tissue swelling distal RUE from elbow - Urinary Catheter Management Coude Cath placed during this visit: no Progress Note: A&P (1) MRSA pneumonia Status: Acute Current Visit: Yes (2) Acute respiratory failure with hypoxia and hypercapnia Status: Acute Current Visit: Yes (3) History of atrial fibrillation Status: Acute Current Visit: No (4) Shoulder fracture, right Status: Acute Current Visit: Yes (5) HHD (hypertensive heart disease) Status: Acute Current Visit: Yes (6) Aortic stenosis Status: Acute Current Visit: Yes (7) JAVIER (acute kidney injury) Status: Resolved Current Visit: Yes (8) Anemia Status: Acute Current Visit: Yes (9) Fall Status: Acute Current Visit: Yes (10) Cellulitis Status: Acute Current Visit: No (11) Hyperkalemia Status: Acute Current Visit: Yes (12) Chronic kidney disease Status: Acute Current Visit: Yes (13) CHF (congestive heart failure) Status: Acute Current Visit: Yes (14) COPD (chronic obstructive pulmonary disease) Status: Acute Current Visit: Yes (15) Left lower lobe pneumonia Status: Acute Current Visit: Yes (16) Chronic respiratory failure Status: Acute Current Visit: Yes Assessment and Plan for All Diagnoses:: 79yo M with R proximal humerus fracture; DOI 11/02/19 -- new XR performed today of R shoulder; no change in alignment or interval healing of comminuted proximal humerus fracture -- continue sling, NWB RUE -- ice pack R shoulder PRN -- after another 7-10 days in the sling, may start to mobilize shoulder as tolerated, starting with pendulum exercises and PROM -- continue PT/OT for mobilization, but wear sling while ambulatory, SONG PINA -- continue medical management per Dr. Gould, I will follow peripherally -- f/u in clinic after discharge, call for appointment when discharge being prepared ([phone])
[2019-11-14 05:57] LABS: Basophils # 0.1 K/mm3 (0-0.2); Basophils % 0.8 % (0.1-2.0); Eosinophils # 0.2 K/mm3 (0.0-0.4); Eosinophils % 2.8 % (0.1-12.0); Hematocrit 34.3 % (42.0-52.0); Hemoglobin 10.6 g/dL (14.1-18.0); Lymphocytes % 11.4 % (10-50); Mean Corpuscular Volume 87.5 fl (80-94); Mean Platelet Volume 7.5 fl (7.4-10.4); Monocytes # 0.8 K/mm3 (0.1-1.0); Monocytes % 9.4 % (1.7-9.3); Neutrophils # 6.4 K/mm3 (1.8-7.8); Neutrophils % 75.6 % (37.0-80.0); Platelet Count 307 K/mm3 (142-424); Red Blood Count 3.91 M/mm3 (4.60-6.20); Red Cell Distribution Width 14.4 % (11.5-17.5); White Blood Count 8.5 K/mm3 (4.8-10.8)
[2019-11-14 06:57] LABS: Anion Gap 9.6 mEq/L (5-15); Calcium 8.6 mg/dl (8.4-10.2)
--- NOTE | 2019-11-14 07:15 | Progress Note ---
Internal Medicine - PN: Subj *Date: 11/14/19 *Time: 07:12 Interval history: Patient had a good night with periods of confusion noted by staff and by patient's this morning. He can be reoriented rather easily. Patient wore BiPAP most of the night and claims he does not sleep with BiPAP on although nursing staff reports patient did sleep well until around 1 AM. Patient denies shortness of breath or cough. Despite his fractured right humerus he denies significant pain. Exam Vital signs and Labs for Last 24 Hours: Temp Pulse Resp BP Pulse Ox 97.8 F 90 20 168/84 H 99 11/14/19 04:00 11/14/19 05:15 11/14/19 04:00 11/14/19 04:00 11/14/19 05:15 Laboratory Results - last 24 hr 11/13/19 12:00: Vancomycin Trough 21.9 H 11/14/19 05:40: WBC 8.5, RBC 3.91 L, Hgb 10.6 L, Hct 34.3 L, MCV 87.5, MCH 27.2, MCHC 31.0 L, RDW 14.4, Plt Count 307, MPV 7.5, Neut % (Auto) 75.6, Lymph % (Auto) 11.4, [place] % (Auto) 9.4 H, Eos % (Auto) 2.8, Baso % (Auto) 0.8, Neut # (Auto) 6.4, Lymph # (Auto) 1.0, [place] # (Auto) 0.8, Eos # (Auto) 0.2, Baso # (Auto) 0.1 11/14/19 05:40: Sodium 134 L, Potassium 4.6, Chloride 91 L, Carbon Dioxide 38 H, Anion Gap 9.6, BUN 32 H, Creatinine 1.10, Estimated Creat Clear 74, Estimated GFR 64, Est GFR ( Amer) 78, Glucose 122 H, Calcium 8.6 I & O for Last 24 hours: Intake & Output 11/11/19 11/12/19 11/13/19 11/14/19 11:59 11:59 11:59 11:59 Intake Total 370 / 370 730 / 730 1330 / 1330 580 / 580 Output Total 750 / 750 800 / 800 1550 / 1550 2210 / 2210 Balance -380 / -380 -70 / -70 -220 / -220 -1630 / -1630 Weight 222 lb 4 oz 218 lb 7.649 oz 219 lb 9 oz 220 lb 7 oz Narrative: Patient is once again slouched down in the bed. Neck is and lateral flexion to the right. Patient has trouble straightening his neck. Lungs have some expiratory wheezes as well as some crackles at the left base. Heart has a regular rate and rhythm. Assessment and Plan (1) MRSA pneumonia Current visit: Yes Status: Acute Category: Medical Code(s): J15.212 - Pneumonia due to Methicillin resistant Staphylococcus aureus (2) Acute respiratory failure with hypoxia and hypercapnia Current visit: Yes Status: Acute Category: Medical Code(s): J96.01 - Acute respiratory failure with hypoxia; J96.02 - Acute respiratory failure with hypercapnia (3) History of atrial fibrillation Current visit: No Status: Acute Category: Medical Code(s): Z86.79 - Personal history of other diseases of the circulatory system (4) Shoulder fracture, right Current visit: Yes Status: Acute Qualifiers: Encounter type: initial encounter Fracture type: closed Qualified Code(s): S42.91XA - Fracture of right shoulder girdle, part unspecified, initial encounter for closed fracture Category: Medical Code(s): S42.91XA - Fracture of right shoulder girdle, part unspecified, initial encounter for closed fracture (5) HHD (hypertensive heart disease) Current visit: Yes Status: Acute Category: Medical Code(s): I11.9 - Hypertensive heart disease without heart failure (6) Aortic stenosis Current visit: Yes Status: Acute Category: Medical Code(s): I35.0 - Nonrheumatic aortic (valve) stenosis (7) JAVIER (acute kidney injury) Current visit: Yes Status: Resolved Category: Medical Code(s): N17.9 - Acute kidney failure, unspecified (8) Anemia Current visit: Yes Status: Acute Qualifiers: Iron deficiency anemia type: chronic blood loss Qualified Code(s): D64.9 - Anemia, unspecified Category: Medical Code(s): D64.9 - Anemia, unspecified (9) Fall Current visit: Yes Status: Acute Qualifiers: Encounter type: initial encounter Qualified Code(s): W19.XXXA - Unspecified fall, initial encounter Category: Medical Code(s): W19.XXXA - Unspecified fall, initial encounter (10) Cellulitis Current visit: No Status: Resolved Qualifiers: Site of cellulitis: extremity Site of cellulitis of extremity: lower extremity Laterality: right Qualified Code(s): L03.115 - Cellulitis of right lower limb Category: Medical Code(s): L03.90 - Cellulitis, unspecified (11) Hyperkalemia Current visit: Yes Status: Resolved Category: Medical Code(s): E87.5 - Hyperkalemia (12) Chronic kidney disease Current visit: Yes Status: Acute Category: Medical Code(s): N18.9 - Chronic kidney disease, unspecified (13) CHF (congestive heart failure) Current visit: Yes Status: Acute Qualifiers: Heart failure type: diastolic Category: Medical Code(s): I50.9 - Heart failure, unspecified (14) COPD (chronic obstructive pulmonary disease) Current visit: Yes Status: Acute Category: Medical Code(s): J44.9 - Chronic obstructive pulmonary disease, unspecified (15) Left lower lobe pneumonia Current visit: Yes Status: Acute Category: Medical Code(s): J18.9 - Pneumonia, unspecified organism (16) Chronic respiratory failure Current visit: Yes Status: Acute Category: Medical Code(s): J96.10 - Chronic respiratory failure, unspecified whether with hypoxia or hypercapnia - Assessment and plan all Dx Assessment and Plan for all problems:: 1. Continue weaning to nasal cannula during the day. Patient will continue BiPAP at night. He will be out of bed to chair again today which he tolerated very well yesterday. Continue ambulating with assistance. Despite successful treatment with BiPAP patient struggles with this mode of respiratory support. It is interfering with sleep which I think is contributing to some of his confusion. He finds it uncomfortable to wear. I do believe he is going to need some form of ventilatory support at night for the time. We will investigate a trilogy device at the beginning of the week 2. As patient has not had any arrhythmia during the 2-week hospitalization his telemetry will be discontinued
[2019-11-14 16:35] LABS: ABG Base Excess 9.8 mmol/L (-2.4-2.3); ABG Oxygen Saturation 93 % (90-100); ABG PH 7.44 mmol/L (7.35-7.45); ABG PO2 64.1 mmhg (80-100); ABG TCO2 35.6 mmhg (23-27)
[2019-11-14 16:42] LABS: ABG PCO2 51.8 mmhg (35.0-45.0); Allen's Test Acceptable
--- NOTE | 2019-11-15 08:42 | Progress Note ---
Internal Medicine - PN: Subj *Date: 11/15/19 *Time: 08:39 Interval history: Patient had a restless night. Apparently he wore BiPAP to around 2 AM at which point he became confused and began fighting having to wear the BiPAP. It was subsequently removed and he has been on supplemental oxygen via nasal cannula since that time. His is at bedside this morning and reports that she does not feel he is doing very well as he seems increasingly confused. Patient awakens easily. He is oriented to person but when asked if he knows where he is his responses "in bed". He does not know where he is located. Exam Vital signs and Labs for Last 24 Hours: Temp Pulse Resp BP Pulse Ox 98.1 F 90 22 131/73 90 L 11/15/19 07:59 11/15/19 07:59 11/15/19 07:59 11/15/19 07:59 11/15/19 07:59 Laboratory Results - last 24 hr 11/14/19 15:35: Specimen Source Left radial, O2 % 3lpm nc, ABG pH 7.44, ABG pCO2 51.8 H, ABG pO2 64.1 L, ABG HCO3 34.0 H, ABG Total CO2 35.6 H, ABG O2 Saturation 93, ABG Base Excess 9.8 H, Gregory Test Acceptable 11/14/19 20:40: Vancomycin Trough 17.7 H I & O for Last 24 hours: Intake & Output 11/12/19 11/13/19 11/14/19 11/15/19 11:59 11:59 11:59 11:59 Intake Total 730 / 730 1330 / 1330 820 / 820 600 / 600 Output Total 800 / 800 1550 / 1550 2210 / 2210 2560 / 2560 Balance -70 / -70 -220 / -220 -1390 / -1390 -1960 / -1960 Weight 218 lb 7.649 oz 219 lb 9 oz 220 lb 7 oz Narrative: Patient is slouched down in the bed again looks very uncomfortable. His head is tilted to the right and nearly resting on his right shoulder and his chin is tucked into his chest. There is mild increased work of breathing with use of abdominal accessory muscles. Lungs have expiratory wheezes and left lateral rales. Heart has a regular rate and rhythm. Abdomen is soft and nontender. Bridges catheter remains anchored and has clear yellow urine Assessment and Plan (1) MRSA pneumonia Current visit: Yes Status: Acute Category: Medical Code(s): J15.212 - Pneumonia due to Methicillin resistant Staphylococcus aureus Continue IV vancomycin. Repeat chest x-ray today (2) Chronic respiratory failure Current visit: Yes Status: Acute Category: Medical Code(s): J96.10 - Chronic respiratory failure, unspecified whether with hypoxia or hypercapnia Repeat ABG this morning due to mental status changes. Patient needs to continue using BiPAP at night and he may require reapplication of BiPAP with use of the soft cervical collar during the day today (3) COPD exacerbation Current visit: Yes Status: Acute Category: Medical Code(s): J44.1 - Chronic obstructive pulmonary disease with (acute) exacerbation Increase steroids by starting Solu-Medrol 60 mg every 8 hours (4) Acute respiratory failure with hypoxia and hypercapnia Current visit: Yes Status: Acute Category: Medical Code(s): J96.01 - Acute respiratory failure with hypoxia; J96.02 - Acute respiratory failure with hypercapnia (5) History of atrial fibrillation Current visit: No Status: Acute Category: Medical Code(s): Z86.79 - Personal history of other diseases of the circulatory system Stable (6) Shoulder fracture, right Current visit: Yes Status: Acute Qualifiers: Encounter type: initial encounter Fracture type: closed Qualified Code(s): S42.91XA - Fracture of right shoulder girdle, part unspecified, initial encounter for closed fracture Category: Medical Code(s): S42.91XA - Fracture of right shoulder girdle, part unspecified, initial encounter for closed fracture (7) HHD (hypertensive heart disease) Current visit: Yes Status: Acute Category: Medical Code(s): I11.9 - Hypertensive heart disease without heart failure (8) Aortic stenosis Current visit: Yes Status: Acute Category: Medical Code(s): I35.0 - Nonrheumatic aortic (valve) stenosis (9) JAVIER (acute kidney injury) Current visit: Yes Status: Resolved Category: Medical Code(s): N17.9 - Acute kidney failure, unspecified (10) Anemia Current visit: Yes Status: Acute Qualifiers: Iron deficiency anemia type: chronic blood loss Qualified Code(s): D64.9 - Anemia, unspecified Category: Medical Code(s): D64.9 - Anemia, unspecified (11) Fall Current visit: Yes Status: Acute Qualifiers: Encounter type: initial encounter Qualified Code(s): W19.XXXA - Unspecified fall, initial encounter Category: Medical Code(s): W19.XXXA - Unspecified fall, initial encounter (12) Cellulitis Current visit: No Status: Resolved Qualifiers: Site of cellulitis: extremity Site of cellulitis of extremity: lower extremity Laterality: right Qualified Code(s): L03.115 - Cellulitis of right lower limb Category: Medical Code(s): L03.90 - Cellulitis, unspecified (13) Hyperkalemia Current visit: Yes Status: Resolved Category: Medical Code(s): E87.5 - Hyperkalemia (14) Chronic kidney disease Current visit: Yes Status: Acute Category: Medical Code(s): N18.9 - Chronic kidney disease, unspecified (15) CHF (congestive heart failure) Current visit: Yes Status: Acute Qualifiers: Heart failure type: diastolic Category: Medical Code(s): I50.9 - Heart failure, unspecified (16) COPD (chronic obstructive pulmonary disease) Current visit: Yes Status: Acute Category: Medical Code(s): J44.9 - Chronic obstructive pulmonary disease, unspecified (17) Left lower lobe pneumonia Current visit: Yes Status: Acute Category: Medical Code(s): J18.9 - Pneumonia, unspecified organism
[2019-11-15 10:00] LABS: ABG Base Excess 9.9 mmol/L (-2.4-2.3); ABG HCO3 35.1 mmhg (22.0-26.0); ABG Oxygen Saturation 90 % (90-100); ABG PH 7.37 mmol/L (7.35-7.45); ABG PO2 59.2 mmhg (80-100)
[2019-11-15 10:02] LABS: Allen's Test ACCEPTABLE; Oxygen 36 %
[2019-11-15 10:07] LABS: ABG PCO2 61.7 mmhg (35.0-45.0)
--- NOTE | 2019-11-15 11:48 | Pharmacy Consult Notes ---
- Pharmacy Consult Date: 11/15/19 Time: 11:47 Referring provider: DR. EVANS Reason for Consult:: VANCOMYCIN TROUGH LEVEL Allergies and ADEs:: Allergies Allergy/AdvReac Type Severity Reaction Status Date / Time codeine [CODEINE] Allergy Unknown Verified 11/02/19 05:01 Home Medications:: Home Medications Medication Instructions Recorded Confirmed Type Amlodipine Besylate [Amlodipine 10 mg PO DAILY 09/23/17 11/02/19 History 10mg Tab] Pantoprazole Sodium [Pantoprazole 40 mg PO DAILY 09/23/17 11/02/19 History 20mg Tab] lisinopriL [Lisinopril 40mg Tablet] 40 mg PO DAILY 09/23/17 11/02/19 History Ferrous Sulfate [Iron] 65 mg PO DAILY 03/04/18 11/02/19 History Furosemide [Furosemide 40MG tAB] 40 mg PO BID 03/04/18 11/02/19 History Metoprolol Tartrate 50 mg PO DAILY 03/05/18 11/02/19 History Sulfamethoxazole/Trimethoprim 1 each PO BID #14 tab 10/26/19 11/02/19 Rx [Bactrim DS tablet] Height: 1.88 m Weight: 99.989 kg Laboratory Results:: Laboratory Results - last 24 hr 11/14/19 15:35: Specimen Source Left radial, O2 % 3lpm nc, ABG pH 7.44, ABG pCO2 51.8 H, ABG pO2 64.1 L, ABG HCO3 34.0 H, ABG Total CO2 35.6 H, ABG O2 Saturation 93, ABG Base Excess 9.8 H, Gregory Test Acceptable 11/14/19 20:40: Vancomycin Trough 17.7 H 11/15/19 08:36: Specimen Source Left radial, O2 % 36, ABG pH 7.37, ABG pCO2 61.7 H, ABG pO2 59.2 L, ABG HCO3 35.1 H, ABG Total CO2 37.0 H, ABG O2 Saturation 90, ABG Base Excess 9.9 H, Gregory Test Acceptable Medical History: Reports:: Arrhythmia, Atrial Fibrillation (Bruxism), Cancer (skin), Congestive Heart Failure (Diastolic), Hypertension, Palpitations Denies:: Diabetes Mellitus Type 1, Diabetes Mellitus Type 2, Internal Pacemaker, Lung Disease, MRSA, Seizures Assessment and Plan (1) MRSA pneumonia Current visit: Yes Status: Acute Category: Medical Code(s): J15.212 - Pneumonia due to Methicillin resistant Staphylococcus aureus (2) Chronic respiratory failure Current visit: Yes Status: Acute Category: Medical Code(s): J96.10 - Chronic respiratory failure, unspecified whether with hypoxia or hypercapnia (3) COPD exacerbation Current visit: Yes Status: Acute Category: Medical Code(s): J44.1 - Chronic obstructive pulmonary disease with (acute) exacerbation (4) Acute respiratory failure with hypoxia and hypercapnia Current visit: Yes Status: Acute Category: Medical Code(s): J96.01 - Acute respiratory failure with hypoxia; J96.02 - Acute respiratory failure with hypercapnia (5) History of atrial fibrillation Current visit: No Status: Acute Category: Medical Code(s): Z86.79 - Personal history of other diseases of the circulatory system (6) Shoulder fracture, right Current visit: Yes Status: Acute Qualifiers: Encounter type: initial encounter Fracture type: closed Qualified Code(s): S42.91XA - Fracture of right shoulder girdle, part unspecified, initial encounter for closed fracture Category: Medical Code(s): S42.91XA - Fracture of right shoulder girdle, part unspecified, initial encounter for closed fracture (7) HHD (hypertensive heart disease) Current visit: Yes Status: Acute Category: Medical Code(s): I11.9 - Hypertensive heart disease without heart failure (8) Aortic stenosis Current visit: Yes Status: Acute Category: Medical Code(s): I35.0 - Nonrheumatic aortic (valve) stenosis (9) JAVIER (acute kidney injury) Current visit: Yes Status: Resolved Category: Medical Code(s): N17.9 - Acute kidney failure, unspecified (10) Anemia Current visit: Yes Status: Acute Qualifiers: Iron deficiency anemia type: chronic blood loss Qualified Code(s): D64.9 - Anemia, unspecified Category: Medical Code(s): D64.9 - Anemia, unspecified (11) Fall Current visit: Yes Status: Acute Qualifiers: Encounter type: initial encounter Qualified Code(s): W19.XXXA - Unspecified fall, initial encounter Category: Medical Code(s): W19.XXXA - Unspecified fall, initial encounter (12) Cellulitis Current visit: No Status: Resolved Qualifiers: Site of cellulitis: extremity Site of cellulitis of extremity: lower extremity Laterality: right Qualified Code(s): L03.115 - Cellulitis of right lower limb Category: Medical Code(s): L03.90 - Cellulitis, unspecified (13) Hyperkalemia Current visit: Yes Status: Resolved Category: Medical Code(s): E87.5 - Hyperkalemia (14) Chronic kidney disease Current visit: Yes Status: Acute Category: Medical Code(s): N18.9 - Chronic kidney disease, unspecified (15) CHF (congestive heart failure) Current visit: Yes Status: Acute Qualifiers: Heart failure type: diastolic Category: Medical Code(s): I50.9 - Heart failure, unspecified (16) COPD (chronic obstructive pulmonary disease) Current visit: Yes Status: Acute Category: Medical Code(s): J44.9 - Chronic obstructive pulmonary disease, unspecified (17) Left lower lobe pneumonia Current visit: Yes Status: Acute Category: Medical Code(s): J18.9 - Pneumonia, unspecified organism - Assessment and plan all Dx Assessment and Plan for all problems:: BASED ON VANCOMYCIN TROUGH LEVEL AND PATIENT FACTORS, RECOMMEND CONTINUING VANCOMYCIN 1500 MG IV Q24H. PHARMACY WILL CONTINUE TO MONITOR DAILY AND ADJUST APPROPRIATE. THIS IS DAY 8 OF VANCOMYCIN.
[2019-11-16 06:23] LABS: Basophils % 0.1 % (0.1-2.0); Eosinophils % 0.1 % (0.1-12.0); Hematocrit 34.1 % (42.0-52.0); Hemoglobin 10.6 g/dL (14.1-18.0); Lymphocytes # 0.4 K/mm3 (0.7-4.5); Lymphocytes % 4.6 % (10-50); Mean Corpuscular HGB Conc 31.2 g/dL (31.8-35.4); Mean Corpuscular Volume 89.2 fl (80-94); Mean Platelet Volume 7.4 fl (7.4-10.4); Monocytes # 0.5 K/mm3 (0.1-1.0); Monocytes % 5.8 % (1.7-9.3); Neutrophils # 8.2 K/mm3 (1.8-7.8); Neutrophils % 89.4 % (37.0-80.0); Platelet Count 313 K/mm3 (142-424); Red Blood Count 3.83 M/mm3 (4.60-6.20); Red Cell Distribution Width 14.5 % (11.5-17.5); White Blood Count 9.2 K/mm3 (4.8-10.8)
[2019-11-16 06:29] LABS: Anion Gap 9.4 mEq/L (5-15); Calcium 8.5 mg/dl (8.4-10.2)
--- NOTE | 2019-11-16 07:43 | Progress Note ---
Internal Medicine - PN: Subj *Date: 11/16/19 *Time: 07:40 Interval history: Patient slept well. is at bedside. He was able to tolerate BiPAP this time after application late yesterday morning. Exam Vital signs and Labs for Last 24 Hours: Temp Pulse Resp BP Pulse Ox 98.2 F 88 24 186/62 H 92 L 11/16/19 04:00 11/16/19 06:39 11/16/19 04:00 11/16/19 04:00 11/16/19 04:00 Laboratory Results - last 24 hr 11/15/19 08:36: Specimen Source Left radial, O2 % 36, ABG pH 7.37, ABG pCO2 61.7 H, ABG pO2 59.2 L, ABG HCO3 35.1 H, ABG Total CO2 37.0 H, ABG O2 Saturation 90, ABG Base Excess 9.9 H, Gregory Test Acceptable 11/16/19 05:40: WBC 9.2, RBC 3.83 L, Hgb 10.6 L, Hct 34.1 L, MCV 89.2, MCH 27.8, MCHC 31.2 L, RDW 14.5, Plt Count 313, MPV 7.4, Neut % (Auto) 89.4 H, Lymph % (Auto) 4.6 L, [place] % (Auto) 5.8, Eos % (Auto) 0.1, Baso % (Auto) 0.1, Neut # (Auto) 8.2 H, Lymph # (Auto) 0.4 L, [place] # (Auto) 0.5, Eos # (Auto) 0.0, Baso # (Auto) 0.0 11/16/19 05:40: Sodium 136, Potassium 4.4, Chloride 95 L, Carbon Dioxide 36 H, Anion Gap 9.4, BUN 31 H, Creatinine 1.00, Estimated Creat Clear 82, Estimated GFR 72, Est GFR ( Amer) 87, Glucose 174 H, Calcium 8.5 I & O for Last 24 hours: Intake & Output 11/13/19 11/14/19 11/15/19 11/16/19 11:59 11:59 11:59 11:59 Intake Total 1330 / 1330 820 / 820 600 / 600 1330 / 1330 Output Total 1550 / 1550 2210 / 2210 2560 / 2560 2600 / 2600 Balance -220 / -220 -1390 / -1390 -1960 / -1960 -1270 / -1270 Weight 219 lb 9 oz 220 lb 7 oz 221 lb Narrative: Patient is laying in bed with soft cervical collar in place. He is positioned a little bit better this morning. The BiPAP is in place. Patient awakens to vocal stimulus. Lungs have improved aeration and no expiratory wheezes this morning. Rales that were present in the left lateral lung have also improved. Heart had a regular rate and rhythm. Abdomen is soft. Lower extremities have no edema. Bridges catheter remains in place. Chest x-ray yesterday showed improvement in patient's pneumonia. Assessment and Plan (1) MRSA pneumonia Current visit: Yes Status: Acute Category: Medical Code(s): J15.212 - Pneumonia due to Methicillin resistant Staphylococcus aureus (2) Chronic respiratory failure Current visit: Yes Status: Acute Category: Medical Code(s): J96.10 - Chronic respiratory failure, unspecified whether with hypoxia or hypercapnia (3) COPD exacerbation Current visit: Yes Status: Acute Category: Medical Code(s): J44.1 - Chronic obstructive pulmonary disease with (acute) exacerbation (4) Acute respiratory failure with hypoxia and hypercapnia Current visit: Yes Status: Acute Category: Medical Code(s): J96.01 - Acute respiratory failure with hypoxia; J96.02 - Acute respiratory failure with hypercapnia (5) History of atrial fibrillation Current visit: No Status: Acute Category: Medical Code(s): Z86.79 - Personal history of other diseases of the circulatory system (6) Shoulder fracture, right Current visit: Yes Status: Acute Qualifiers: Encounter type: initial encounter Fracture type: closed Qualified Code(s): S42.91XA - Fracture of right shoulder girdle, part unspecified, initial encounter for closed fracture Category: Medical Code(s): S42.91XA - Fracture of right shoulder girdle, part unspecified, initial encounter for closed fracture (7) HHD (hypertensive heart disease) Current visit: Yes Status: Acute Category: Medical Code(s): I11.9 - Hypertensive heart disease without heart failure (8) Aortic stenosis Current visit: Yes Status: Acute Category: Medical Code(s): I35.0 - Nonrheumatic aortic (valve) stenosis (9) JAVIER (acute kidney injury) Current visit: Yes Status: Resolved Category: Medical Code(s): N17.9 - Acute kidney failure, unspecified (10) Anemia Current visit: Yes Status: Acute Qualifiers: Iron deficiency anemia type: chronic blood loss Qualified Code(s): D64.9 - Anemia, unspecified Category: Medical Code(s): D64.9 - Anemia, unspecified (11) Fall Current visit: Yes Status: Acute Qualifiers: Encounter type: initial encounter Qualified Code(s): W19.XXXA - Unspecified fall, initial encounter Category: Medical Code(s): W19.XXXA - Unspecified fall, initial encounter (12) Cellulitis Current visit: No Status: Resolved Qualifiers: Site of cellulitis: extremity Site of cellulitis of extremity: lower extremity Laterality: right Qualified Code(s): L03.115 - Cellulitis of right lower limb Category: Medical Code(s): L03.90 - Cellulitis, unspecified (13) Hyperkalemia Current visit: Yes Status: Resolved Category: Medical Code(s): E87.5 - Hyperkalemia (14) Chronic kidney disease Current visit: Yes Status: Acute Category: Medical Code(s): N18.9 - Chronic kidney disease, unspecified (15) CHF (congestive heart failure) Current visit: Yes Status: Acute Qualifiers: Heart failure type: diastolic Category: Medical Code(s): I50.9 - Heart failure, unspecified (16) COPD (chronic obstructive pulmonary disease) Current visit: Yes Status: Acute Category: Medical Code(s): J44.9 - Chronic obstructive pulmonary disease, unspecified (17) Left lower lobe pneumonia Current visit: Yes Status: Acute Category: Medical Code(s): J18.9 - Pneumonia, unspecified organism - Assessment and plan all Dx Assessment and Plan for all problems:: 1. Patient has completed 9 days of vancomycin which should be adequate to treat his MRSA pneumonia so this will be discontinued. 2. Continue steroids and breathing treatments for COPD exacerbation 3. Patient's COPD, suspected sleep apnea, chronic respiratory failure are presently the greatest challenge for the patient. Due to immobility, bed positioning, generalized deconditioning patient is having continuous episodes of mild acute on chronic respiratory failure. ABG yesterday had a PCO2 of greater than 55 and that was on supplemental oxygen at 3 L/min. He is repeatedly retained CO2 and this does respond to BiPAP although patient's tolerance of BiPAP is fluctuated. Patient would benefit from volume ventilation to treat his respiratory failure. I do believe he would benefit from trilogy noninvasive ventilation device to treat his respiratory failure and I do not believe he would tolerate higher pressures on BiPAP consistently.
[2019-11-16 09:20] LABS: Lymphocytes % 5 % (10-50); Monocytes % 2 % (2-9); Neutrophils % 93 % (42-76); RBC Morphology Normal; Total Cells Counted 100
[2019-11-17 06:00] LABS: Basophils % 0.1 % (0.1-2.0); Eosinophils % 0.2 % (0.1-12.0); Hematocrit 34.6 % (42.0-52.0); Hemoglobin 10.7 g/dL (14.1-18.0); Lymphocytes # 0.4 K/mm3 (0.7-4.5); Mean Corpuscular Volume 90.2 fl (80-94); Mean Platelet Volume 7.3 fl (7.4-10.4); Monocytes # 0.6 K/mm3 (0.1-1.0); Monocytes % 4.3 % (1.7-9.3); Neutrophils # 11.9 K/mm3 (1.8-7.8); Neutrophils % 92.5 % (37.0-80.0); Platelet Count 329 K/mm3 (142-424); Red Blood Count 3.84 M/mm3 (4.60-6.20); Red Cell Distribution Width 14.8 % (11.5-17.5); White Blood Count 12.8 K/mm3 (4.8-10.8)
[2019-11-17 06:06] LABS: Anion Gap 9.3 mEq/L (5-15)
[2019-11-17 06:07] LABS: Calcium 8.5 mg/dl (8.4-10.2)
--- NOTE | 2019-11-17 07:43 | Progress Note ---
Internal Medicine - PN: Subj *Date: 11/17/19 *Time: 07:41 Interval history: Patient tolerated use of the trilogy noninvasive ventilation device. It was much more comfortable and he did not feel the need to try to adjust the mask himself. Nursing staff reports patient did well overnight. Patient denies shortness of breath or pain this morning. Nursing staff reports he was given Tylenol overnight for his right arm pain. The patient is up out of bed already this morning eating breakfast Exam Vital signs and Labs for Last 24 Hours: Temp Pulse Resp BP Pulse Ox 98.5 F 84 17 159/76 H 92 L 11/17/19 04:00 11/17/19 06:09 11/17/19 04:00 11/17/19 04:00 11/17/19 04:00 Laboratory Results - last 24 hr 11/16/19 05:40: Total Counted 100, Neutrophils % (Manual) 93 H, Lymphocytes % (Manual) 5 L, Monocytes % (Manual) 2, Platelet Estimate Normal, RBC Morphology Normal 11/17/19 05:40: WBC 12.8 H D, RBC 3.84 L, Hgb 10.7 L, Hct 34.6 L, MCV 90.2, MCH 28.0, MCHC 31.0 L, RDW 14.8, Plt Count 329, MPV 7.3 L, Neut % (Auto) 92.5 H, Lymph % (Auto) 3.0 L, [place] % (Auto) 4.3, Eos % (Auto) 0.2, Baso % (Auto) 0.1, Neut # (Auto) 11.9 H, Lymph # (Auto) 0.4 L, [place] # (Auto) 0.6, Eos # (Auto) 0.0, Baso # (Auto) 0.0 11/17/19 05:40: Sodium 134 L, Potassium 4.3, Chloride 95 L, Carbon Dioxide 34 H, Anion Gap 9.3, BUN 39 H D, Creatinine 1.10, Estimated Creat Clear 74, Estimated GFR 64, Est GFR ( Amer) 78, Glucose 182 H, Calcium 8.5 I & O for Last 24 hours: Intake & Output 11/14/19 11/15/19 11/16/19 11/17/19 11:59 11:59 11:59 11:59 Intake Total 820 / 820 600 / 600 1810 / 1810 1180 / 1180 Output Total 2210 / 2210 2560 / 2560 2600 / 2600 2800 / 2800 Balance -1390 / -1390 -1960 / -1960 -790 / -790 -1620 / -1620 Weight 220 lb 7 oz 221 lb 220 lb 7.396 oz Narrative: Patient looks comfortable. He shows no signs of respiratory distress. Lungs this morning are clear without expiratory wheezes. Heart has a regular rate and rhythm. exam reveals an anchored Bridges catheter and large right inguinal hernia descended into the scrotum. Lower extremities have no edema Assessment and Plan (1) MRSA pneumonia Current visit: Yes Status: Acute Category: Medical Code(s): J15.212 - Pneumonia due to Methicillin resistant Staphylococcus aureus (2) Chronic respiratory failure Current visit: Yes Status: Acute Category: Medical Code(s): J96.10 - Chronic respiratory failure, unspecified whether with hypoxia or hypercapnia (3) COPD exacerbation Current visit: Yes Status: Acute Category: Medical Code(s): J44.1 - Chronic obstructive pulmonary disease with (acute) exacerbation (4) Acute respiratory failure with hypoxia and hypercapnia Current visit: Yes Status: Acute Category: Medical Code(s): J96.01 - Acute respiratory failure with hypoxia; J96.02 - Acute respiratory failure with hype rcapnia (5) History of atrial fibrillation Current visit: No Status: Acute Category: Medical Code(s): Z86.79 - Personal history of other diseases of the circulatory system (6) Shoulder fracture, right Current visit: Yes Status: Acute Qualifiers: Encounter type: initial encounter Fracture type: closed Qualified Code(s): S42.91XA - Fracture of right shoulder girdle, part unspecified, initial encounter for closed fracture Category: Medical Code(s): S42.91XA - Fracture of right shoulder girdle, part unspecified, initial encounter for closed fracture (7) HHD (hypertensive heart disease) Current visit: Yes Status: Acute Category: Medical Code(s): I11.9 - Hypertensive heart disease without heart failure (8) Aortic stenosis Current visit: Yes Status: Acute Category: Medical Code(s): I35.0 - Nonrheumatic aortic (valve) stenosis (9) JAVIER (acute kidney injury) Current visit: Yes Status: Resolved Category: Medical Code(s): N17.9 - Acute kidney failure, unspecified (10) Anemia Current visit: Yes Status: Acute Qualifiers: Iron deficiency anemia type: chronic blood loss Qualified Code(s): D64.9 - Anemia, unspecified Category: Medical Code(s): D64.9 - Anemia, unspecified (11) Fall Current visit: Yes Status: Acute Qualifiers: Encounter type: initial encounter Qualified Code(s): W19.XXXA - Unspecified fall, initial encounter Category: Medical Code(s): W19.XXXA - Unspecified fall, initial encounter (12) Cellulitis Current visit: No Status: Resolved Qualifiers: Site of cellulitis: extremity Site of cellulitis of extremity: lower extremity Laterality: right Qualified Code(s): L03.115 - Cellulitis of right lower limb Category: Medical Code(s): L03.90 - Cellulitis, unspecified (13) Hyperkalemia Current visit: Yes Status: Resolved Category: Medical Code(s): E87.5 - H yperkalemia (14) Chronic kidney disease Current visit: Yes Status: Acute Category: Medical Code(s): N18.9 - Chronic kidney disease, unspecified (15) CHF (congestive heart failure) Current visit: Yes Status: Acute Qualifiers: Heart failure type: diastolic Category: Medical Code(s): I50.9 - Heart failure, unspecified (16) COPD (chronic obstructive pulmonary disease) Current visit: Yes Status: Acute Category: Medical Code(s): J44.9 - Chronic obstructive pulmonary disease, unspecified (17) Left lower lobe pneumonia Current visit: Yes Status: Acute Category: Medical Code(s): J18.9 - Pneumonia, unspecified organism - Assessment and plan all Dx Assessment and Plan for all problems:: No change in plan of care. Patient is ready for discharge. Once he has been accepted to intermediate facility he will be discharged.
--- NOTE | 2019-11-17 07:57 | Discharge Summary ---
General - General Admission date:: 11/02/19 Discharge date: 11/17/19 HPI HPI: 79-year-old male presented to the emergency department after a fall at home around 2 AM this morning. Patient states he was coming out of the bathroom and his right foot slipped out from under him. This led to a fall where the patient landed directly on the right shoulder which is resulted in a surgical neck fracture of the right humerus. Patient was evaluated for further trauma in the emergency department. There were no other fractures identified. Patient was admitted with orthopedic consultation. Patient has a history of paroxysmal atrial fibrillation and recently was taken off all anticoagulants due to GI bleed. Due to a large inguinal hernia patient is not capable of undergoing appropriate bowel prep and colonoscopy. He denies chest pain, shortness of breath at rest, syncope, palpitations. During his recent hospitalizations patient did report some shortness of breath with exertion but this was relieved once his anemia was corrected. Hospital Course Hospital Course: Patient was admitted with initial intention of orthopedic repair of his right humerus fracture. Upon admission cardiology was consulted for patient's history of diastolic heart failure. Echocardiogram showed a normal ejection fraction. Patient was transfused preoperatively due to anticipated blood loss and his personal history of anemia. Hospital course per problem list is as follows: Patient's right humeral fracture was initially intended to be repaired. However due to complications during hospitalization starting with anemia and later acute kidney injury with subsequent acute on chronic respiratory failure requiring intubation it was felt to be in the patient's best is interest that this be treated conservatively. Dr. Valladares of the orthopedic service was consulted on admission and followed along with the patient during hospitalization. At discharge patient will continue to follow with Dr. Mckee. Patient will follow-up with Dr. Valladares 7 to 10 days after discharge and his right arm will remain in a sling with nonweightbearing of the right upper extremity. Patient's pain was treated with Tylenol as it was believed either morphine or oral narcotics were suppressing his respiratory drive. He tolerated Tylenol for pain control Patient had anemia prior to admission with recent hospitalization for GI bleed with inability to complete GI evaluation due to a large right inguinal hernia that contains bowel. Upper GI performed during prior hospitalization did not reveal any upper GI source of bleeding. Patient was taken off anticoagulants which he was using because of atrial fibrillation. Patient was anemic on admission and was transfused in anticipation of surgery due to bleeding from the humeral fracture. Patient transfused on multiple occasions during the first week of hospitalization to maintain a hemoglobin around 10. After receiving a total of 5 units of packed red blood cells patient's hemoglobin stabilized around 10 and stayed between 10 and 11 for the remainder of his hospitalization. His anemia is chronic and was contributed to by acute blood loss from his humeral fracture. Anemia was stable at discharge Patient has a history of atrial fibrillation which was controlled and patient remained in sinus rhythm during hospitalization. He cannot take anticoagulants due to his recurring GI bleeds that have led to anemia. The day following admission patient had acute elevation in his creatinine and decrease in renal function consistent with acute kidney injury suspected due to blood loss. Patient's anemia was corrected but his creatinine was much slower to respond. Patient was receiving fluids which led the patient becoming fluid overloaded. Diuretics were avoided to preserve renal function until it became absolutely necessary and patient's pulmonary status was compromised. Patient was given intravenous Lasix 80 mg to start and had a robust response with diure sis of more than thousand milliliters with administration of this medication. During the remainder of the hospitalization patient was maintained on either IV or oral Lasix to maintain euvolemia. Weights were followed daily. Echocardiogram showed diastolic dysfunction with normal ejection fraction. Patient will continue twice daily oral Lasix at discharge. Renal function improved significantly with creatinine the day prior to discharge of 1. Patient had hyperkalemia associated with his acute kidney injury but as his acute kidney injury resolved his potassium returned to normal levels Patient has a history of suspected obstructive sleep apnea and known COPD. During the first week of hospitalization patient gradually had a decline in O2 sats along with increased work of breathing. On repeated lung exam patient had poor inspiratory effort and poor air movement. Blood gases were checked which revealed a mild respiratory acidosis. Patient had BiPAP applied. Patient had poor response to BiPAP and decision was made to intubate the patient to alleviate his acute on chronic respiratory failure with hypercarbia and hypoxemia. Patient was intubated for approximately 48 hours and extubated on November 06. After extubation patient was transitioned to nasal cannula but because of suspected pre-existing obstructive sleep apnea along with COPD and chronic respiratory failure decision was made to continue the patient on BiPAP at night with weaning to nasal cannula during the day. Patient did not tolerate BiPAP as he became more alert and decision was made to transition to the [facility] noninvasive ventilation device which patient tolerated much better. At discharge patient was on supplemental oxygen via the nasal cannula between 2 and 3 L/min during the day and was using trilogy at night. After extubation sputum collected revealed MRSA. Patient was started on vancomycin for MRSA pneumonia seen on chest x-ray. Serial chest x-rays were performed during his prolonged hospitalization which showed gradual improvement of his pneumonia. After 9 days of vancomycin antibiotics were discontinued. During hospitalization patient never had fever nor elevation in his white blood cell count. Blood cultures were negative. 72 hours prior to discharge patient developed increased work of breathing again although this time had associated wheezing. He was started on steroids and duo nebs which improved his wheezing and work of breathing within 24 hours. Patient's prolonged hospitalization left him profoundly weakened. He was deconditioned prior to admission due to recent hospitalization along with poor functional status at baseline. Ability to ambulate was now complicated by his right humeral fracture. PT was consulted and worked with the patient when able during hospitalization as sometimes his level of illness prevented physical therapy intervention. Patient will need rehabilitation at a facility. Once he was accepted to a facility patient was discharged in stable condition. Objective Vital signs: Temp Pulse Resp BP Pulse Ox 98.5 F 84 17 159/76 H 92 L 11/17/19 04:00 11/17/19 06:09 11/17/19 04:00 11/17/19 04:00 11/17/19 04:00 Narrative: On the day of discharge patient was sitting up in chair. His posture is poor with head tilted slightly to the right and chin tucked. Nasal cannula was in place. Neck is supple. Right upper extremity is in a sling. Lungs have good aeration and are clear without wheezes or rales. Heart has a regular rate and rhythm. Abdomen is soft. He has a large right inguinal hernia that is descended into the scrotum. Lower extremities have no edema Results Labs on day of discharge: Labs from last 24 hours 11/17/19 11/17/19 11/16/19 05:40 05:40 05:40 WBC 12.8 H D RBC 3.84 L Hgb 10.7 L Hct 34.6 L MCV 90.2 MCH 28.0 MCHC 31.0 L RDW 14.8 Plt Count 329 MPV 7.3 L Neut % (Auto) 92.5 H Lymph % (Auto) 3.0 L Barren % (Auto) 4.3 Eos % (Auto) 0.2 Baso % (Auto) 0.1 Neut # (Auto) 11.9 H Lymph # (Auto) 0.4 L Barren # (Auto) 0.6 Eos # (Auto) 0.0 Baso # (Auto) 0.0 Total Counted 100 Neutrophils % (Manual) 93 H Lymphocytes % (Manual) 5 L Monocytes % (Manual) 2 Platelet Estimate Normal RBC Morphology Normal Sodium 134 L Potassium 4.3 Chloride 95 L Carbon Dioxide 34 H Anion Gap 9.3 BUN 39 H D Creatinine 1.10 Estimated Creat Clear 74 Estimated GFR 64 Est GFR ( Amer) 78 Glucose 182 H Calcium 8.5 DS: Diagnosis - Discharge Diagnosis (1) MRSA pneumonia Status: Acute (2) Chronic respiratory failure Status: Acute (3) COPD exacerbation Status: Acute (4) Acute respiratory failure with hypoxia and hypercapnia Status: Acute (5) History of atrial fibrillation Status: Acute (6) Shoulder fracture, right Status: Acute (7) HHD (hypertensive heart disease) Status: Acute (8) Aortic stenosis Status: Acute (9) JAVIER (acute kidney injury) Status: Resolved (10) Anemia Status: Acute (11) Fall Status: Acute (12) Cellulitis Status: Resolved (13) Hyperkalemia Status: Resolved (14) Chronic kidney disease Status: Acute (15) CHF (congestive heart failure) Status: Acute (16) COPD (chronic obstructive pulmonary disease) Status: Acute (17) Left lower lobe pneumonia Status: Acute Discharge Plan - Patient Discharge Instructions ACTIVITY: Continue current activity DIET: continue same diet Patient Instructions: Getting to the Heart of a Healthful Diet: Sodium, Methicillin-Resistant Staph Infection, Anemia, DI for Kidney Failure, DI for High Blood Pressure, DI for Shoulder Fracture, DI for Surgical Site Infection, Low-Sodium Diet, DI for Multiple Drug-resistant Organism (MDRO) Infection - Follow up Plan Follow up with: Dio Gould MD [Primary Care Provider] - Disposition: [facility] ([facility] Home Medications: Home Medications Medication Instructions Recorded Confirmed Type Amlodipine Besylate [Amlodipine 10 mg PO DAILY 09/23/17 11/02/19 History 10mg Tab] Pantoprazole Sodium [Pantoprazole 40 mg PO DAILY 09/23/17 11/02/19 History 20mg Tab] lisinopriL [Lisinopril 40mg Tablet] 40 mg PO DAILY 09/23/17 11/02/19 History Ferrous Sulfate [Iron] 65 mg PO DAILY 03/04/18 11/02/19 History Furosemide [Furosemide 40MG tAB] 40 mg PO BID 03/04/18 11/02/19 History Metoprolol Tartrate 50 mg PO DAILY 03/05/18 11/02/19 History Sulfamethoxazole/Trimethoprim 1 each PO BID #14 tab 10/26/19 11/02/19 Rx [Bactrim DS tablet] Ipratropium/Albuterol Sulfate 3 ml IH Q6HP PRN #30 neb 11/17/19 Rx [Duoneb 3mL neb] predniSONE [Prednisone 20mg 20 mg PO DIRECTED #20 tab 11/17/19 Rx Tab] Prescriptions/Medication Reconciliation: New Ipratropium/Albuterol Sulfate [Duoneb 3mL neb] 3 ml IH Q6HP PRN #30 neb PRN Reason: Wheezing predniSONE [Prednisone 20mg Tab] 20 mg PO DIRECTED #20 tab Continued lisinopriL [Lisinopril 40mg Tablet] 40 mg PO DAILY Pantoprazole Sodium [Pantoprazole 20mg Tab] 40 mg PO DAILY Furosemide [Furosemide 40MG tAB] 40 mg PO BID Metoprolol Tartrate 50 mg PO DAILY Amlodipine Besylate [Amlodipine 10mg Tab] 10 mg PO DAILY Ferrous Sulfate [Iron] 65 mg PO DAILY Discontinued Sulfamethoxazole/Trimethoprim [Bactrim DS tablet] 1 each PO BID #14 tab - Problem Reconciliation Problems Reviewed?: Yes
[2019-11-17 11:25] LABS: Hypochromasia 1+; Lymphocytes % 2 % (10-50); Monocytes % 1 % (2-9); Neutrophils % 97 % (42-76); Stomatocytes 1+; Total Cells Counted 100
== END 2019-11-17 14:35 | DRG 562 ==
LOC: ER 04:31 → 2ND 04:31 → OBSVTOIN 09:29 → INTOOBSV 09:29 → 2ND 09:57
PROVIDERS: ADMIT Family Medicine; ATTEND Family Medicine
CPT/HCPCS: 36415; 70450; 71010; 71045; 71250; 72125; 72170; 73030; 73080; 73200; 80048; 80053; 80202; 81001; 82803; 82962; 83735; 85007; 85014; 85018; 85025; 85610; 86850; 87070; 87077; 87186; 87205; 92526; 92610; 93005; 93306; 94002; 94003; 94640; 94660; 94760; 94761; 96374; 96375; 97110; 97163; 97530; 99284; J2405; J2704; J3370; P9016

== ENCOUNTER 2019-12-07 11:54 | Inpatient (IN) ==
[2019-12-07 12:20] LABS: ABG Base Excess 3.5 mmol/L (-2.4-2.3); ABG HCO3 30.7 mmhg (22.0-26.0); ABG Oxygen Saturation 79 % (90-100); ABG PH 7.25 mmol/L (7.35-7.45); ABG TCO2 32.9 mmhg (23-27)
--- NOTE | 2019-12-07 12:20 | Emergency Department Note ---
ED Disposition Clinical Impression: Acute respiratory failure with hypoxia and hypercarbia, Hospital-acquired pneumonia, History of atrial fibrillation, Atrial fibrillation with rapid ventricular response, Hypoxemia Dyspnea Qualifiers: Dyspnea type: acute respiratory distress Qualified Code(s): R06.03 - Acute respiratory distress CHF (congestive heart failure) Qualifiers: Heart failure type: unspecified Heart failure chronicity: unspecified Qualified Code(s): I50.9 - Heart failure, unspecified Pneumonia of both lower lobes Qualifiers: Pneumonia type: due to unspecified organism Qualified Code(s): J18.9 - Pneumonia, unspecified organism Disposition: Admitted As Inpatient Condition on Discharge: Serious Referrals: Dio Gould MD [Primary Care Provider] - Time of Disposition: 13:42 - Critical Care Critical Care Time: Yes Attestation: On , the high probability of a clinically significant, sudden or life threa tening deterioration of the following system(s) required my full and direct attention, intervention and personal management. The time I documented below is in addition to time spent performing reported procedures but includes the following listed in this critical care notation. Total Critical Care Time: 30 Vital system(s) involved:: Circulatory Failure, Respiratory Failure My critical care processes included: Assessment & monitoring of V/S, Initial and Re-exams, Data Review/Interpretation, Coordinating Care, Medication Orders and management, Documentation Medical Decision Making - Jay Inquiry Pt receiving controlled substance: No Vital Signs: 12/07/19 11:55 Temperature 97.4 F L Temperature Source Oral Pulse Rate [Brachial] 85 Respiratory Rate 22 Blood Pressure [Right Arm] 113/50 L Blood Pressure Mean [Right Arm] 71 Blood Pressure Source [Right Arm] Automatic Cuff Blood Pressure Position [Right Arm] Sitting 02 Sat by Pulse Oximetry 78 L Oxygen Delivery Method Nasal Cannula Oxygen Flow Rate (LPM) 2 - Lab Data Lab results reviewed: Yes: I reviewed the patient's lab results. Lab Results 12/07/19 12:11: Specimen Source Right radial, O2 % 4l, ABG pH 7.25 L, ABG pCO2 71.8 H, ABG pO2 47.7 L, ABG HCO3 30.7 H, ABG Total CO2 32.9 H, ABG O2 Saturation 79 L*, ABG Base Excess 3.5 H, Gregory Test Acceptable 12/07/19 12:20: WBC 7.9, RBC 4.93, Hgb 14.0 L, Hct 45.8, MCV 92.9, MCH 28.4, MCH C 30.5 L, RDW 15.2, Plt Count 257, MPV 7.9, Neut % (Auto) 87.7 H, Lymph % (Auto) 8.8 L, Phelps % (Auto) 0.8 L, Eos % (Auto) 2.2, Baso % (Auto) 0.7, Neut # (Auto) 7.0, Lymph # (Auto) 0.7, Phelps # (Auto) 0.1, Eos # (Auto) 0.2, Baso # (Auto) 0.1, Total Counted 100, Neutrophils % (Manual) 73, Band Neutrophils % 11.0 H, Lymphocytes % (Manual) 9 L, Monocytes % (Manual) 4, Eosinophils % (Manual) 3, Platelet Estimate Moderate decrease, Hypochromasia 1+ 12/07/19 12:20: Sodium 135 L, Potassium 3.7, Chloride 87 L, Carbon Dioxide 37 H, Anion Gap 14.7, BUN 26 H, Creatinine 1.70 H, Estimated Creat Clear 48, Estimated GFR 39 L, Est GFR ( Amer) 47 L, Glucose 213 H, Calcium 8.9, Total Bilirubin 0.8, AST 20, ALT 17, Alkaline Phosphatase 199 H, Total Protein 7.0, Albumin 3.8, Globulin 3.2, Albumin/Globulin Ratio 1.2 12/07/19 12:20: Lactate 5.2 H 12/07/19 12:25: Urine Color Dk yellow, Urine Appearance Sl cloudy, Urine pH 5.5, Ur Specific Jay 1.025, Urine Protein Trace, Urine Glucose (UA) Negative, Urine Ketones Negative, Urine Blood Negative, Urine Nitrate Negative, Urine Bilirubin Negative, Urine Urobilinogen 1.0, Ur Leukocyte Esterase 1+ A, Urine RBC 5-10, Urine WBC 20-50, Ur Squamous Epith Cells Occasional, Urine Bacteria 2+, Hyaline Casts Occasional Result diagrams: 12/07/19 12:20 12/07/19 12:20 Orders (Tests/Meds): ED MEDICATIONS Generic Name Dose Route Start Last Admin Trade Name Freq PRN Reason Stop Dose Admin Sodium Chloride 2,990 mls @ 1,495 mls/hr 12/07/19 12:53 Sod Chlor 0.9% 1000ml Bag 30 ml/kg infuse over 2 hr (2990 ml) 12/07/19 14:52 IV .Q2H ONE ORDERS Category Date Time Status Brain Natriuretic Peptide Stat Lab 12/07/19 12:20 Received SARS-CoV-2, DILEEP Stat Lab 12/07/19 13:00 Received Trop I [Troponin I] Stat Lab 12/07/19 12:20 Received Troponin I Q3H Lab 12/07/19 16:15 Ordered Troponin I Q3H Lab 12/07/19 19:15 Ordered Blood Culture Stat Micro 12/07/19 12:20 Received Urine Culture Stat Micro 12/07/19 12:25 Received Arterial Blood Gas Stat RT 12/07/19 12:15 Ordered - Radiology Data #1 Image(s): Chest Image Reviewed: Yes I reviewed the patient's radiology image XR CHEST PORTABLE CLINICAL HISTORY: shortness of breath FINDINGS: There is cardiomegaly without failure. There are chronic changes noted with chronic pleural thickening in the right hemithorax laterally with old right-sided rib fractures. There is chronic increased density in the right lower lobe which may be related to chronic volume loss similar to multiple previous exams. There is also increased density in the left lung base with obscuration of the left hemidiaphragm suggesting left lower lobe pneumonia. Upper lobes are clear. IMPRESSION: Cardiomegaly with chronic changes with increased density in the retrocardiac region on the left with obscured hemidiaphragm consistent with left lower lobe pneumonia Dictated by: Gregory Cespedes MD 12/07/2019 12:42 Electronically signed by Gregory Cespedes MD in [place] 12/07/2019 12:42 - ECG Data Tracing #1 Atrial fibrillation with a heart rate of 174 bpm Arrhythmias present: afib (Rapid ventricular response) - Physician Consults Physician Consulted: Dr. Gould Time: 13:00 Reason -: Admission, Pt condition Comment/Response: Discussed with Dr. Gould regarding the patient and planned to get the patient admitted to the ICU. He was concerned about the patient having atrial fibrillation. He states the family members had called him stating that the patient's heart rate was high this morning. Plan to start the patient on antibiotics for hospital-acquired pneumonia as well as management for atrial fibrillation - Reevaluation(s) Time: 13:00 Reevaluation #1: The Pt was having shortness of breath and was Tachypneic. We planned to the patient on a BiPAP because of acute respiratory failure with hypercapnia and hypoxemia. As the patient has been in the hospital recently with the possibility of coronavirus symptoms at this time we decided to do a coronavirus testing on the patient. We had to keep the patient on BiPAP in a negative pressure room for the same. Plan to admit the patient to the ICU for the same. We planned not to bolus the patient with IV fluids too much because of his congestive heart failure. We will plan to give him gentle IV fluid for hydration. General Adult HPI - General Chief complaint: Shortness of Breath/Dyspnea Stated complaint: SOA Time Seen by Provider: 12/07/19 12:00 Mode of Arrival: Wheelchair Source of Information: Patient Limitations: No Limitations Description of Symptoms (Recalled from ER Triage Doc. by RN): Increased SOB that started today. States he is hurting in his hernia, difficulty urinating, coughing up yellow stuff. States he has been hot with no temperature. recent intubation and right humerus fracture. - History of Present Illness HPI narrative: 79-year-old male presents to the emergency department chief complaint of having shortness of breath since last night. Still complains of not being able to urinate since last night. Complains of the lower part of the abdomen and inguinal hernia site. He has large inguinal hernia. No hx of fever or chills. No history of nausea or vomiting. Patient was recently admitted to our hospital for pneumonia and then transferred to the long term. He was in the long term for 2 weeks and then went home for the last 1 week or so. - Related Data Home Medications Medication Instructions Recorded Confirmed Amlodipine Besylate [Amlodipine 10 mg PO DAILY 09/23/17 12/07/19 10mg Tab] Pantoprazole Sodium [Pantoprazole 40 mg PO DAILY 09/23/17 12/07/19 20mg Tab] lisinopriL [Lisinopril 40mg Tablet] 40 mg PO DAILY 09/23/17 12/07/19 Furosemide [Furosemide 40MG tAB] 40 mg PO BID 03/04/18 12/07/19 Metoprolol Tartrate 50 mg PO DAILY 03/05/18 12/07/19 Amiodarone HCl [Amiodarone 100mg 100 mg PO DAILY 12/07/19 12/07/19 Tab] Allergies Allergy/AdvReac Type Severity Reaction Status Date / Time codeine [CODEINE] Allergy Unknown Verified 11/02/19 05:01 [facility] History - Hepatitis A Screen Drug use history?: No High risk sexual behaviors?: No History of sexually transmitted infection?: No Currently employed?: No Childcare worker?: No Do you have indoor plumbing?: Yes Do you have electricity?: Yes Attestation statement:: This patient has been screened for Hepatitis A risk factors. I have reviewed the patient's past medical history: Yes Medical History: Reports:: Arrhythmia, Atrial Fibrillation (Bruxism), Cancer (skin), Congestive Heart Failure (Diastolic), Hypertension, Palpitations Denies:: Diabetes Mellitus Type 1, Diabetes Mellitus Type 2, Internal Pacema ker, Lung Disease, MRSA, Seizures Other Medical History: Reports: Anemia, Arthritis, Chemotherapy (off for 2 weeks) Laterality Cases: Left: Total Hip Replacement, Bilateral: Other Other Surgeries: Yes: Appendectomy, Colonoscopy, EGD. No: Pacemaker Amputation: No Fractures: Yes - Social History Educational Level: Completed High School Smoking Status: Former smoker Tobacco Type: cigarettes # Packs/Day (cigarettes): 1 Alcohol Intake: never Alcohol Intake Frequency:: holidays/special occasions only Substance Use Type: denies use Occupational Status: disabled Housing: house Household Members: spouse Family Hx:: Diabetes ROS Obtained: Yes All systems reviewed & no additional complaints Physical Exam - General General appearance: alert, other (Patient is in shortness of breath) - Head Head exam: atraumatic, normocephalic, normal inspection - Eye Eye exam: Present: normal appearance, PERRL, EOMI - ENT ENT exam: Present: normal exam, normal oropharynx, mucous membranes moist, normal external ear exam - Neck Neck exam: Present: other (Chronic kyphoscoliosis) - Chest Chest inspection: Present: normal inspection, symmetric chest wall rise. Absent: tenderness - Respiratory Respiratory exam: Present: normal lung sounds bilaterally. Absent: respiratory distress - Cardiovascular Cardiovascular exam: Present: regular rate, normal rhythm. Absent: JVD - Abdominal Exam Abdominal exam: Present: soft, distention (Large right inguinal hernia extending to the scrotum. Hernia is size of a pumpkin), normal bowel sounds, other (Large right inguinal hernia size of a pumpkin.). Absent: tenderness, guarding - Extremities Exam Extremities exam: Present: other (At baseline state.) - Back Exam Back exam: Present: other (Kyphoscoliosis and is at baseline state) - Neurological Exam Neurological exam: Present: alert, oriented X3, CN II-XII intact - Psychiatric Psychiatric exam: Present: normal affect, normal mood - Skin Skin exam: Present: warm
[2019-12-07 12:27] LABS: ABG PCO2 71.8 mmhg (35.0-45.0); Allen's Test ACCEPTABLE; Oxygen 4L %
[2019-12-07 12:28] LABS: ABG PO2 47.7 mmhg (80-100)
[2019-12-07 12:29] LABS: Microscopic, Urine URINE MICROSCOPIC (MICROSCOPIC)
[2019-12-07 12:30] LABS: Basophils # 0.1 K/mm3 (0-0.2); Basophils % 0.7 % (0.1-2.0); Eosinophils # 0.2 K/mm3 (0.0-0.4); Eosinophils % 2.2 % (0.1-12.0); Hematocrit 45.8 % (42.0-52.0); Lymphocytes # 0.7 K/mm3 (0.7-4.5); Lymphocytes % 8.8 % (10-50); Mean Corpuscular HGB Conc 30.5 g/dL (31.8-35.4); Mean Corpuscular Volume 92.9 fl (80-94); Mean Platelet Volume 7.9 fl (7.4-10.4); Monocytes # 0.1 K/mm3 (0.1-1.0); Monocytes % 0.8 % (1.7-9.3); Neutrophils % 87.7 % (37.0-80.0); Platelet Count 257 K/mm3 (142-424); Red Blood Count 4.93 M/mm3 (4.60-6.20); Red Cell Distribution Width 15.2 % (11.5-17.5); White Blood Count 7.9 K/mm3 (4.8-10.8)
[2019-12-07 12:35] LABS: Appearance,Urine SL CLOUDY (Clear); Blood, Urine Negative (Negative); Color,Urine DK YELLOW (Yellow); Glucose,Urine (UA) Negative (Negative); Ketones,Urine Negative (Negative); Leukocyte Esterase,Urine 1+ (Negative); PH,Urine 5.5 (5.0-8.5); Protein,Urine TRACE (Negative); Specific Gravity, Urine 1.025 (1.005-1.030)
[2019-12-07 12:39] LABS: Albumin Level 3.8 g/dl (3.5-5.0); Albumin/Globulin Ratio 1.2 (1.1-1.8); Anion Gap 14.7 mEq/L (5-15); Bilirubin,Total 0.8 mg/dl (0.2-1.3); Calcium 8.9 mg/dl (8.4-10.2); Globulin 3.2 g/dL (1.3-3.2)
[2019-12-07 12:41] LABS: Bilirubin,Urine Negative (Negative)
[2019-12-07 12:46] LABS: Eosinophils % 3 % (0-3); Hypochromasia 1+; Lymphocytes % 9 % (10-50); Monocytes % 4 % (2-9); Neutrophils % 73 % (42-76); Total Cells Counted 100
[2019-12-07 12:54] LABS: Bacteria,Urine 2+ /lpf; Hyaline Casts,Urine Occasional #/lpf (0); Squamous Epithelial Cell,Urine Occasional #/hpf (0-5); WBC,Urine 20-50 #/hpf (0-3)
--- NOTE | 2019-12-07 14:58 | Pharmacy Consult Notes ---
[facility] Pharmacy VTE Monitoring - Patient Demographics Admission date: 12/07/19 Report Date: 12/07/19 Time: 14:58 Allergies/Adverse Reactions: Patient Allergies codeine [CODEINE] Allergy (Unknown, Verified 11/02/19 05:01) Height: 1.7 m Weight: 99.79 kg Patient Problems: Current Active Problems Hypoxemia (Acute) History of atrial fibrillation (Acute) Acute respiratory failure with hypoxia and hypercapnia (Acute) CHF (congestive heart failure) (Acute) Dyspnea (Acute) Hospital-acquired pneumonia (Acute) Atrial fibrillation with rapid ventricular response (Acute) Pneumonia of both lower lobes (Acute) - VTE Risk Labs: VTE Related Lab Results Hgb 14.0 g/dL (14.1-18.0) L 12/07/19 12:20 Hct 45.8 % (42.0-52.0) 12/07/19 12:20 Plt Count 257 K/mm3 (142-424) 12/07/19 12:20 BUN 26 mg/dl (9-20) H 12/07/19 12:20 Creatinine 1.70 mg/dl (0.66-1.25) H 12/07/19 12:20 Estimated Creat Clear 48 mL/min (50-200) 12/07/19 12:20 - Prophylaxis VTE Prophylaxis Ordered?: Yes Types of VTE Prophylaxis: TEDS Knee High, Pharmacological Location of Applied Device: Bilateral Lower Extremeties Pharmacologic Type: Enoxaparin - VTE Diagnosis Confirmed Treatment or plan recommended: Continue Current Treatment
--- NOTE | 2019-12-07 15:38 | Pharmacy Consult Notes ---
- Pharmacy Consult Date: 12/07/19 Time: 15:34 Referring provider: DR. EVANS Reason for Consult:: VANCOMYCIN DOSING Allergies and ADEs:: Allergies Allergy/AdvReac Type Severity Reaction Status Date / Time codeine [CODEINE] Allergy Unknown Verified 11/02/19 05:01 Home Medications:: Home Medications Medication Instructions Recorded Confirmed Type Amlodipine Besylate [Amlodipine 10 mg PO DAILY 09/23/17 12/07/19 History 10mg Tab] lisinopriL [Lisinopril 40mg Tablet] 40 mg PO DAILY 09/23/17 12/07/19 History Furosemide [Furosemide 40MG tAB] 40 mg PO BID 03/04/18 12/07/19 History Metoprolol Tartrate 50 mg PO BID 03/05/18 12/07/19 History Amiodarone HCl [Amiodarone 100mg 100 mg PO DAILY 12/07/19 12/07/19 History Tab] Pantoprazole Sodium [Protonix 40mg 40 mg PO DAILY 12/07/19 12/07/19 History tablet] Vismodegib [Erivedge] 150 mg PO DAILY 12/07/19 12/07/19 History Height: 1.88 m Weight: 93.185 kg Laboratory Results:: Laboratory Results - last 24 hr 12/07/19 12:11: Specimen Source Right radial, O2 % 4l, ABG pH 7.25 L, ABG pCO2 71.8 H, ABG pO2 47.7 L, ABG HCO3 30.7 H, ABG Total CO2 32.9 H, ABG O2 Saturation 79 L*, ABG Base Excess 3.5 H, Gregory Test Acceptable 12/07/19 12:20: WBC 7.9, RBC 4.93, Hgb 14.0 L, Hct 45.8, MCV 92.9, MCH 28.4, MCHC 30.5 L, RDW 15.2, Plt Count 257, MPV 7.9, Neut % (Auto) 87.7 H, Lymph % (Auto) 8.8 L, [place] % (Auto) 0.8 L, Eos % (Auto) 2.2, Baso % (Auto) 0.7, Neut # (Auto) 7.0, Lymph # (Auto) 0.7, [place] # (Auto) 0.1, Eos # (Auto) 0.2, Baso # (Auto) 0.1, Total Counted 100, Neutrophils % (Manual) 73, Band Neutrophils % 11.0 H, Lymphocytes % (Manual) 9 L, Monocytes % (Manual) 4, Eosinophils % (Manual) 3, Platelet Estimate Moderate decrease, Hypochromasia 1+ 12/07/19 12:20: Sodium 135 L, Potassium 3.7, Chloride 87 L, Carbon Dioxide 37 H, Anion Gap 14.7, BUN 26 H, Creatinine 1.70 H, Estimated Creat Clear 48, Estimated GFR 39 L, Est GFR ( Amer) 47 L, Glucose 213 H, Calcium 8.9, Total Bilirubin 0.8, AST 20, ALT 17, Alkaline Phosphatase 199 H, Total Protein 7.0, Albumin 3.8, Globulin 3.2, Albumin/Globulin Ratio 1.2 12/07/19 12:20: Lactate 5.2 H 12/07/19 12:20: Troponin I < 0.01, NT-Pro-B Natriuret Pep 7590 H 12/07/19 12:25: Urine Color Dk yellow, Urine Appearance Sl cloudy, Urine pH 5.5, Ur Specific [place] 1.025, Urine Protein Trace, Urine Glucose (UA) Negative, Urine Ketones Negative, Urine Blood Negative, Urine Nitrate Negative, Urine Bilirubin Negative, Urine Urobilinogen 1.0, Ur Leukocyte Esterase 1+ A, Urine RBC 5-10, Urine WBC 20-50, Ur Squamous Epith Cells Occasional, Urine Bacteria 2+, Hyaline Casts Occasional Medical History: Reports:: Arrhythmia, Atrial Fibrillation, Cancer, Congestive Heart Failure, Hyperlipidemia, Hypertension, MRSA, Palpitations Denies:: Diabetes Mellitus Type 1, Diabetes Mellitus Type 2, Internal Pacemaker, Lung Disease, Seizures Assessment and Plan - Assessment and plan all Dx Assessment and Plan for all problems:: BASED ON PATIENT'S FACTORS, RECOMMEND STARTING WITH VANCOMYCIN 1500 MG Q24H AT THIS TIME.
--- NOTE | 2019-12-07 16:18 | History & Physical Report ---
*Admission Date: 12/07/19 *Chief complaint: Shortness of breath/tachycardia *History of present illness: 1-year-old male with recent 2-week hospitalization at this facility after right humerus fracture that was later complicated by acute kidney injury, acute on chronic respiratory failure, MRSA pneumonia, congestive heart failure presented to the emergency department with family over concerns about increased difficulty breathing at home as well as tachycardia with pulse rate at home detected to be in the 150s. Patient also has a history of atrial fibrillation. Presentation in the ER his pulse rate was recorded as normal although later was detected to be in the 120s. In the emergency department patient was found to have acute respiratory failure supported by abnormal ABG with both hypoxemia and hypercapnia and patient was placed on BiPAP. Chest x-ray is revealed what appears to be bilateral infiltrates. No family is present to give history and patient is difficult to understand due to the presence of BiPAP. Patient has also complained of lower abdominal pain and has a large right inguinal hernia that has been present for many years. There is been no nausea or vomiting. Patient denies increase in the size of his hernia. Patient is been admitted and started on broad-spectrum antibiotic coverage with IV fluids and a Cardizem drip for his atrial fibrillation [facility] History I have reviewed the patient's past medical history: Yes Medical History: Reports:: Arrhythmia, Atrial Fibrillation, Cancer (Basal cell carcinoma of the skin), Congestive Heart Failure, Chronic Obstructive Pulmonary Disease (COPD), Hyperlipidemia, Hypertension, MRSA, Palpitations Denies:: Diabetes Mellitus Type 1, Diabetes Mellitus Type 2, Internal Pacemaker, Lung Disease, Seizures *Have you ever received a pneumonia vaccine?: No *Have you received a flu vaccine this season?: No Other Medical History: Reports: Anemia, Arthritis, Chemotherapy (off for 2 weeks) Laterality Cases: Left: Total Hip Replacement, Bilateral: Other Other Surgeries: Yes: Appendectomy, Colonoscopy, EGD. No: Pacemaker Amputation: No Fractures: Yes - *Social History Educational Level: Completed High School Smoking Status: Former smoker Tobacco Type: cigarettes # Packs/Day (cigarettes): 1 Alcohol Intake: never Alcohol Intake Frequency:: holidays/special occasions only Substance Use Type: denies use *Occupational Status:: retired Housing: house Household Members: spouse *Travel in the last 8 weeks: None Family Hx:: Unable to obtain Review of Systems - Review of Systems Review of systems:: unable to obtain Meds Home Medications Medication Instructions Recorded Confirmed Type Amlodipine Besylate [Amlodipine 10 mg PO DAILY 09/23/17 12/07/19 History 10mg Tab] lisinopriL [Lisinopril 40mg Tablet] 40 mg PO DAILY 09/23/17 12/07/19 History Furosemide [Furosemide 40MG tAB] 40 mg PO BID 03/04/18 12/07/19 History Metoprolol Tartrate 50 mg PO BID 03/05/18 12/07/19 History Amiodarone HCl [Amiodarone 100mg 100 mg PO DAILY 12/07/19 12/07/19 History Tab] Pantoprazole Sodium [Protonix 40mg 40 mg PO DAILY 12/07/19 12/07/19 History tablet] Vismodegib [Erivedge] 150 mg PO DAILY 12/07/19 12/07/19 History Allergies Allergy/AdvReac Type Severity Reaction Status Date / Time codeine [CODEINE] Allergy Unknown Verified 11/02/19 05:01 Exam Vital signs and Labs for Last 24 Hours: Temp Pulse Resp BP Pulse Ox 100.4 F H 125 H 22 99/50 L 78 L 12/07/19 15:29 12/07/19 14:02 12/07/19 14:02 12/07/19 15:33 12/07/19 11:55 Laboratory Results - last 24 hr 12/07/19 12:11: Specimen Source Right radial, O2 % 4l, ABG pH 7.25 L, ABG pCO2 71.8 H, ABG pO2 47.7 L, ABG HCO3 30.7 H, ABG Total CO2 32.9 H, ABG O2 Saturation 79 L*, ABG Base Excess 3.5 H, Gregory Test Acceptable 12/07/19 12:20: WBC 7.9, RBC 4.93, Hgb 14.0 L, Hct 45.8, MCV 92.9, MCH 28.4, MCHC 30.5 L, RDW 15.2, Plt Count 257, MPV 7.9, Neut % (Auto) 87.7 H, Lymph % (Auto) 8.8 L, [place] % (Auto) 0.8 L, Eos % (Auto) 2.2, Baso % (Auto) 0.7, Neut # (Auto) 7.0, Lymph # (Auto) 0.7, [place] # (Auto) 0.1, Eos # (Auto) 0.2, Baso # (Auto) 0.1, Total Counted 100, Neutrophils % (Manual) 73, Band Neutrophils % 11.0 H, Lymphocytes % (Manual) 9 L, Monocytes % (Manual) 4, Eosinophils % (Manual) 3, Platelet Estimate Moderate decrease, Hypochromasia 1+ 12/07/19 12:20: Sodium 135 L, Potassium 3.7, Chloride 87 L, Carbon Dioxide 37 H, Anion Gap 14.7, BUN 26 H, Creatinine 1.70 H, Estimated Creat Clear 48, Estimated GFR 39 L, Est GFR ( Amer) 47 L, Glucose 213 H, Calcium 8.9, Total Bilirubin 0.8, AST 20, ALT 17, Alkaline Phosphatase 199 H, Total Protein 7.0, Albumin 3.8, Globulin 3.2, Albumin/Globulin Ratio 1.2 12/07/19 12:20: Lactate 5.2 H 12/07/19 12:20: Troponin I < 0.01, NT-Pro-B Natriuret Pep 7590 H 12/07/19 12:25: Urine Color Dk yellow, Urine Appearance Sl cloudy, Urine pH 5.5, Ur Specific [place] 1.025, Urine Protein Trace, Urine Glucose (UA) Negative, Urine Ketones Negative, Urine Blood Negative, Urine Nitrate Negative, Urine Bilirubin Negative, Urine Urobilinogen 1.0, Ur Leukocyte Esterase 1+ A, Urine RBC 5-10, Urine WBC 20-50, Ur Squamous Epith Cells Occasional, Urine Bacteria 2+, Hyaline Casts Occasional I & O for Last 24 hours: Intake & Output 12/05/19 12/06/19 12/07/19 12/08/19 11:59 11:59 11:59 11:59 Weight 220 lb 205 lb 7 oz Narrative: Patient is laying in bed. Similar to his last hospitalization he is slouched down in the bed and what appears to be an uncomfortable position although the patient denies discomfort. Head is tilted to the right. BiPAP is in place. Patient is tachypneic. Neck has no lymphadenopathy. Lungs are clear anteriorly with rales at the bases left more than right. Heart has an irregularly irregular rate and rhythm. Abdomen is soft and nontender. Patient notes some mild discomfort with palpation of the lower abdomen and pelvis area at the base of his scrotum which is quite distended from his right inguinal hernia. Bowel sounds cannot be auscultated in the abdomen or in the scrotum. Patient has 1+ edema in the lower extremities. Neurologically the patient is oriented to person, place, and time. Musculoskeletal exam is significant for limited use of the right shoulder due right humeral neck fracture Assessment and Plan (1) Acute respiratory failure with hypoxia and hypercapnia Status: Acute Category: Medical Code(s): J96.01 - Acute respiratory failure with hypoxia; J96.02 - Acute respiratory failure with hypercapnia Patient has been started on BiPAP. This will be continued overnight and patient's ABG will be repeated in the morning and has been admitted acute to stepdown unit (2) Atrial fibrillation with rapid ventricular response Status: Acute Category: Medical Code(s): I48.91 - Unspecified atrial fibrillation Cardizem drip. He will continue amiodarone and metoprolol 50 twice daily. Wean Cardizem drip when able (3) CHF (congestive heart failure) Status: Acute Qualifiers: Heart failure type: unspecified Heart failure chronicity: unspecified Qualified Code(s): I50.9 - Heart failure, unspecified Category: Medical Code(s): I50.9 - Heart failure, unspecified Patient has normal ejection fraction and congestive heart failure is felt to be diastolic in nature due to his hypertensive heart disease. BNP is elevated and will be repeated in the morning. Patient seems less symptomatic from heart failure than he does from pneumonia. He will be started on IV fluids with monitoring of I's and O's daily as well as daily weights (4) Pneumonia of both lower lobes Status: Acute Qualifiers: Pneumonia type: due to unspecified organism Qualified Code(s): J18.9 - Pneumonia, unspecified organism Category: Medical Code(s): J18.9 - Pneumonia, unspecified organism Will be started on broad-spectrum antibiotic coverage including vancomycin due to his history of MRSA. Patient does not have any known COVID 19 exposures. COVID 19 testing was performed in the emergency department. Chest x-ray is not consistent with usual findings of COVID 19 pneumonia. Continue negative pressure isolation (5) COPD (chronic obstructive pulmonary disease) Status: Chronic Category: Medical Code(s): J44.9 - Chronic obstructive pulmonary disease, unspecified (6) Chronic kidney disease Status: Acute Category: Medical Code(s): N18.9 - Chronic kidney disease, unspecified Creatinine is risen since discharge earlier in the month. Monitor with daily BMP (7) Chronic respiratory failure Status: Acute Category: Medical Code(s): J96.10 - Chronic respiratory failure, unspecified whether with hypoxia or hypercapnia (8) HHD (hypertensive heart disease) Status: Acute Category: Medical Code(s): I11.9 - Hypertensive heart disease without heart failure (9) Hypotension Status: Acute Category: Medical Code(s): I95.9 - Hypotension, unspecified Patient is hypotensive likely from the use of the Cardizem drip. His lisinopril and amlodipine will be held indefinitely. IV fluids have been started. (10) Right inguinal hernia Status: Acute Category: Medical Code(s): K40.90 - Unilateral inguinal hernia, without obstruction or gangrene, not specified as recurrent Patient has Tylenol ordered for fever and can also be given for pain. Morphine will also be ordered for pain.
[2019-12-07 18:47] LABS: ABG HCO3 27.5 mmhg (22.0-26.0); ABG PCO2 72.8 mmhg (35.0-45.0)
[2019-12-07 18:48] LABS: ABG Base Excess -0.6 mmol/L (-2.4-2.3); ABG Oxygen Saturation 87 % (90-100); ABG TCO2 29 mmhg (23-27); Oxygen 80 %
[2019-12-07 18:49] LABS: Allen's Test Acceptable
--- NOTE | 2019-12-08 03:34 | Death Note ---
Pronouncement Note - Date and Time of Date of : 12/08/19 Time of : 03:11 - PCOD Preliminary cause of : Pneumonia - Additional Data Confirmation of : no pulse, no respirations, no heart sounds Family: at bedside Attending/PCP notified?: Yes Attending physician: Dio Gould MD Was code activated?: Yes Autopsy requested?: No home office claims examiner notified?: No Organ bank notified?: Yes Advance directives: No
--- NOTE | 2019-12-08 03:37 | Progress Note ---
Acute Rapid Response Note - Subjective Date Responded: 12/08/19 Time Responded: 02:40 Provider Note: pt in icu full precautions and was on li drips to support bp- code blue called 0241 and pt with pulse after epi but not breathing - pt was intubated at - 0250 with 7.5 tube - abg drawn and on vent and lost pulse and no resp to acls and pronounced at 0311- family and pcp notified- - Objective Findings: Vital Signs - Last 4 Hours Temperature 99.5 F 12/07/19 22:00 Temperature Source Axillary 12/07/19 22:00 Pulse Rate 91 H 12/08/19 01:07 Respiratory Rate 22 12/08/19 00:42 Blood Pressure 74/48 L 12/08/19 01:07 Blood Pressure Mean 56 12/08/19 01:07 Blood Pressure Source Automatic Cuff 12/08/19 01:07 Blood Pressure Position Sitting 12/08/19 01:07 02 Sat by Pulse Oximetry 97 12/08/19 00:50 Oxygen Delivery Method 12/08/19 00:50 Oxygen Flow Rate (LPM) 2 12/07/19 11:55 Lab Results for Past 12 Hours 12/08/19 00:30: Troponin I 0.08 H 12/07/19 22:02: POC Glucose 93 12/07/19 19:25: Lactate 7.9 H 12/07/19 18:42: Specimen Source Right radial, O2 % 80, ABG pH 7.20 L*, ABG pCO2 72.8 H, ABG pO2 61.0 L, ABG HCO3 27.5 H, ABG Total CO2 29 H, ABG O2 Saturation 87 L*, ABG Base Excess -0.6, Gregory Test Acceptable 12/07/19 17:19: POC Glucose 133 H 12/07/19 16:39: Lactate 4.8 H Rapid Response Exam - General General appearance: in distress, other (apnea ) - Head Head exam: atraumatic - Eye Eye exam: Present: other (nonreactive pupil) - ENT ENT exam: Present: mucous membranes dry - Neck Neck exam: Present: trachea midline - Respiratory Respiratory exam: Present: respiratory distress - Cardiovascular Cardiovascular exam: Present: tachycardia - Abdominal Exam Abdominal exam: Present: soft - exam: Present: other (large inguinal hernia ) - Extremities Exam Extremities exam: Present: pedal edema - Neurological Exam Neurological exam: Present: other (obtunded with no posturing ) - Skin Skin exam: Absent: rash RR Procedures/Assess/Plan - Bedside Intubation Time Out Performed: No Sedative: none Laryngoscope: Brandon Tube size: 7.5 Tube uncuffed: No Placement confirmation: visualized tube passing through cords, equal breath sounds bilaterally, confirmation by capnometry Patient tolerated procedure intubation: well Intubation Complications: none - Additional Bedside Procedures Arterial blood draw: Yes (1) Cardiac arrest due to respiratory disorder Current Visit: Yes Status: Acute - Assessment and plan all Dx Assessment and Plan for all problems:: pt 2153
[2019-12-08 06:34] LABS: ABG PH 6.99 mmol/L (7.35-7.45)
[2019-12-08 06:35] LABS: ABG Base Excess -17.6 mmol/L (-2.4-2.3); ABG HCO3 13.8 mmhg (22.0-26.0); ABG Oxygen Saturation 94 % (90-100); ABG PCO2 58.3 mmhg (35.0-45.0); ABG PO2 91.1 mmhg (80-100); ABG TCO2 15.6 mmhg (23-27)
[2019-12-08 06:36] LABS: Allen's Test ACCEPTABLE; Oxygen 100 %
--- NOTE | 2019-12-08 08:03 | Death Note ---
Discharge Sum: Prov - Provider Primary care physician: Dio Gould MD Visit Care Team Role Provider Type Anju Paredes MD Emergency Provider ER Physician Dio Gould MD Admit Provider Staff Physician Attending Provider Primary Care Provider Admitting clinician: Dio Gould Attending physician on admission: Dio Gould Pronouncing clinician: Darren Jama Discharge Sum: Diag - PCOD Cause of : Pneumonia Discharge Sum: Summary - Date and Time Date of admission: 12/07/19 13:32 Date of : 12/08/19 Time of : 03:11 - Hospital Course prior to Hospital Course Information: Patient was admitted for pneumonia with acute respiratory failure. He was placed on bipap and cefepime and vancomycin. On initial eval through the ER patient had normal pulse rate and blood pressure. HE met sepsis criteria, but I recommended holding IV fluid bolus due to CHF. Patient was admitted to the step down unit. COVID-19 testing was also performed. Patient also went into a-fib in the ER and was started on a cardizem drip as well. Shortly after admission patient's blood pressure began to decrease and this was attributed to the cardizem drip. Patients hypotension was also attributed to his acute kidney injury. By around 6 p.m. patient's BP dropped further and he was given an IV fluid bolus and started on levophed. Patient had good response to LEvophed and Fluid boluses. Around Midnight patient became hypotensive again. Rhythm changed to a-fib with frequent PVC. Patient BP did not respond to torey- synephrine nor did it respond to vasopressin. At 0250 p.m. a code was called and patient was intubated. Epinephrine raised bp briefly but he had no sustained response to ACLS interventions. Patient was pronounced at 0311. Cause of is bilateral pneumonia. Testing for COVID-19 is pending. - Additional Data Confirmation of as documented by pronouncing clinician: no pulse, no respirations, no heart sounds, pupils fixed and dilated Family: at bedside Attending physician: Dio Gould MD Was code activated?: Yes
--- NOTE | 2019-12-09 21:40 | Electrocardiograph Report ---
APPROVED REPORT Exam: Resting ECG HR:105 bpm ECG Measurements Heart Rate 105 AXES QRSd 146 QRS 267 QT 412 T65 QTc 544 <Conclusion> Atrial fibrillation with rapid ventricular response with premature ventricular or aberrantly conducted complexes Right bundle branch block Inferior infarct, age undetermined Anterolateral infarct, age undetermined Abnormal ECG Electronically signed by : Dio Candelaria, 12/09/2019 21:39:43
--- NOTE | 2019-12-09 21:41 | Electrocardiograph Report ---
APPROVED REPORT Exam: Resting ECG HR:174 bpm ECG Measurements Heart Rate 174 AXES QRSd 112 QRS -31 QT 298 T69 QTc 507 <Conclusion> Undetermined rhythm Left axis deviation Low voltage QRS Cannot rule out Anterior infarct, age undetermined Abnormal ECG Electronically signed by : Dio Candelaria, 12/09/2019 21:40:24
== END 2019-12-08 07:15 | disposition expired | DRG 208 ==
LOC: ER 11:54 → 2ND 13:32 → ICU 14:08
PROVIDERS: ADMIT Family Medicine; ATTEND Family Medicine
CPT/HCPCS: 71010; 71045; 80053; 81001; 82803; 82962; 83605; 83880; 84484; 85007; 85025; 87040; 87086; 87635; 93005; 94002; 94660; 96365; 96374; 99285; J3370; U0002